=== PATIENT | female | born 1940 | race Caucasian/White ===

== ENCOUNTER 2018-08-03 13:00 | Emergency (ER) | payer MEDICARE ==
[~2018-08-03] VITALS: Ht 167.6 cm; Wt 110.2 kg
[~2018-08-03 13:00] MED LIST: CIPRO250 MG PO; CYMBALTA60 MG PO; DITROPAN XL5 MG PO; FOLIC ACID1 MG PO; GABAPENTIN600 MG PO; HYDROCET 5-5001 EACH PO; IRON SUPPLEMEN325 MG PO; RESTASIS1 EACH OU; TRAMADOL HCL50 M1 PO; VITAMIN B-6 PO; VITAMIN D35000 UNIT PO; XARELTO10 MG PO; Z.0.AMLODIPINE BESYL PO; Z.0.GLUCOPHAGE1000 M PO; Z.0.LANTUS100 UNIT/1 SQ; Z.0.LIPITOR40 MG PO; Z.0.NEXIUM40 MG PO; Z.0.RAMIPRIL10 MG PO; Z.0.SYNTHROID50 MCG PO; Z.0.VICTOZA 2-0.6 MG SQ; Z.0.WARFARIN SODIUM5 PO; [UNRECOGNIZED DRUG - OTHER] PO
--- OUTSIDE RECORDS SUMMARY | 2018-08-03 13:03 | XMS REPORT ---
Author Author [facility] Address Unknown Phone Unavailable Care Team Providers Care Inspector Watch Assembly Name Role Phone Unavailable Unavailable Problems This patient has no known problems. Allergies, Adverse Reactions, Alerts This patient has no known allergies or adverse reactions. Medications This patient has no known medications.
[2018-08-03 18:04] LABS: BASOPHILS % 0.3 % (0.0-1.0); EOSINOPHILS # (AUTO) 0.1 (0.0-0.4); EOSINOPHILS % 0.7 % (0.0-6.0); HEMATOCRIT 37.5 % (34.2-44.1); HEMOGLOBIN 11.8 g/dL (12.0-16.0); LYMPHOCYTES # (AUTO) 1.1 (1.0-3.2); LYMPHOCYTES % 8.4 % (18.0-39.1); MEAN CORPUSCULAR HEMOGLOBIN 24.3 pg (28-32); MEAN CORPUSCULAR HGB CONC 31.5 g/dL (31-35); MEAN CORPUSCULAR VOLUME 77.3 fL (81-99); MONOCYTES # (AUTO) 0.8 (0.2-0.8); MONOCYTES % 5.6 % (4.4-11.3); NEUTROPHILS # (AUTO) 11.5 (2.1-6.9); NEUTROPHILS % 84.6 % (38.7-80.0); PLATELET COUNT 330 x10e3/uL (140-360); RED BLOOD COUNT 4.85 x10e6/uL (3.6-5.1); RED CELL DISTRIBUTION WIDTH 22.4 % (11.7-14.4)
[2018-08-03 18:13] LABS: ALANINE AMINOTRANSFERASE 23 IU/L (0-55); ALBUMIN 3.2 g/dL (3.5-5.0); ALBUMIN/GLOBULIN RATIO 0.9 (0.8-2.0); ALKALINE PHOSPHATASE 111 IU/L (40-150); ANION GAP 14.1 mmol/L (8-16); BLOOD UREA NITROGEN 28 mg/dL (7-26); BUN/CREATININE RATIO 33 (6-25); CALCIUM 9.4 mg/dL (8.4-10.2); CARBON DIOXIDE 25 mmol/L (22-29); CHLORIDE 103 mmol/L (98-107); CREATININE, SERUM 0.84 mg/dL (0.57-1.11); EST GLOMERULAR FILTRATION RATE > 60 ML/MIN (60-); GLUCOSE 100 mg/dL (74-118); POTASSIUM 4.1 mmol/L (3.5-5.1); SODIUM 138 mmol/L (136-145)
[2018-08-03 19:04] LABS: CLARITY,URINE CLOUDY (CLEAR); COLOR,URINE YELLOW (YELLOW)
[2018-08-03 19:05] LABS: BILIRUBIN,URINE NEGATIVE (NEGATIVE); KETONES,URINE NEGATIVE (NEGATIVE); LEUKOCYTE ESTERASE ,URINE 1+ (NEGATIVE); NITRITE,URINE NEGATIVE (NEGATIVE); PROTEIN,URINE DIPSTICK 1+ (NEGATIVE); URINE UROBILINOGEN 0.2 mg/dL (0.2 - 1)
[2018-08-03 19:15] LABS: BACTERIA,URINE MODERATE /HPF; EPITHELIAL CELLS,URINE FEW /LPF
[2018-08-03] MEDS ORDERED: CEFTRIAXONE SOD 1 GM VIAL IV SCH (19:45)
[2018-08-03] MEDS ORDERED: SODIUM CHLORIDE 0.9% 50ML 50 ML ONE (19:54)
[2018-08-03] MEDS ORDERED: IOPAMIDOL 370 MG/ML 200 ML INFUS..BTL INJ ONE (19:54)
--- NOTE | 2018-08-03 20:44 | Diagnostic Imaging Report ---
EXAM: CT ABDOMEN AND PELVIS with IV CONTRAST INDICATION: Abdominal pain, diarrhea COMPARISON: None TECHNIQUE: The abdomen and pelvis were scanned using a multidetector helical scanner. Coronal and sagittal reformations were obtained. Dose modulation, iterative reconstruction, and/or weight based adjustment of the mA/kV was utilized to reduce the radiation dose to as low as reasonably achievable. Routine protocol performed. IV Contrast: 100 cc Isovue-370 Oral Contrast: Water FINDINGS: LOWER THORAX: No consolidations LIVER: No masses BILIARY: The gallbladder is unremarkable. No ductal dilation. SPLEEN: No masses PANCREAS: No masses ADRENALS: No nodules KIDNEYS: Symmetric perfusion. No enhancing masses. No hydronephrosis. GI TRACT: No distention, wall thickening or evidence of obstruction. Appendix is not visualized. VESSELS: Advanced atherosclerotic changes of the abdominal aorta and its branches. No aneurysm. Infrarenal inferior vena cava filter. PERITONEUM/RETROPERITONEUM: No free air or fluid LYMPH NODES: No lymphadenopathy REPRODUCTIVE ORGANS: Unremarkable BLADDER: Unremarkable SOFT TISSUES: Stranding in the left para midline anterior subcutaneous tissues, could be an injection site or contusion. Right posterior lower back and buttock calcification, possibly from prior injury or injection. BONES: No suspicious bone lesions. Healing left lateral seventh through 11th rib fractures. Old left inferior pubic ramus fracture. Chronic appearing central compression of the superior endplate of L4. IMPRESSION: No acute findings to explain patient's abdominal pain. Signed by: Dr. Cynthia Crandall M.D. on 08/03/2018 8:41 PM
== END 2018-08-03 22:20 | disposition home or self-care (01) ==
LOC: ER 13:00
DX: R19.7 Diarrhea, unspecified (principal); R10.84 Generalized abdominal pain; N30.91 Cystitis, unspecified with hematuria; I10 Essential (primary) hypertension; E11.9 Type 2 diabetes mellitus without complications; E78.5 Hyperlipidemia, unspecified; Z86.718 Personal history of other venous thrombosis and embolism
CPT/HCPCS: 36415; 74177; 80053; 81001; 82948; 85025; 87086; 99284; J0696; Q9967

== ENCOUNTER 2018-11-20 11:11 | Observation (INO) | payer MEDICARE ==
[~2018-11-20] VITALS: Ht 167.6 cm; Wt 103.0 kg
--- OUTSIDE RECORDS SUMMARY | 2018-11-20 11:14 | XMS REPORT | Continuity of Care Document ---
Author Author [facility] Interface Address Unknown Phone Unavailable Problems Problem Status Onset Date Classification Date Reported Comments Source Hypochloremia Active 03/28/2016 Problem 08/04/2018 [facility] Hyponatremia Active 03/28/2016 Problem 08/04/2018 [facility] UTI Active 03/28/2016 Problem 08/04/2018 [facility] Concussion Active Problem 08/04/2018 [facility] Contusion Active Problem 08/04/2018 [facility] Thermal pierce of multiple sites Active Problem 08/04/2018 [facility] Medications Medication Details Route Status Patient Instructions Ordering Provider Order Date Source Amlodipine Besylate 5 Mg Tablet, 1 Tab Oral Daily Active 03/29/2016 [facility] Warfarin Sodium 5 Mg Tablet, 1 Tab Oral 5 Days/Week Active 12/21/2014 [facility] Tramadol Hcl 50 Mg Tablet, 1 Tab Oral Daily Active 02/04/2014 [facility] Atorvastatin Calcium (Lipitor) 40 Mg Tablet Daily Active [facility] Cholecalciferol (Vitamin D3) (Vitamin D3) 5,000 Unit Capsule Daily Active [facility] Ciprofloxacin Hcl (Cipro) 250 Mg Tablet Twice A Day Active [facility] Cyclosporine (Restasis) 1 Each Droperette Twice A Day Active [facility] Duloxetine Hcl (Cymbalta) 60 Mg Capsule.dr Foster Active [facility] Esomeprazole Mag Trihydrate (Nexium) 40 Mg Capsule.dr Foster Active [facility] Ferrous Sulfate (Iron Supplement) 325 Mg Tablet Twice A Day Active [facility] Folic Acid 1 Mg Tablet Daily Active [facility] Gabapentin 600 Mg Tablet Three Times A Day Active [facility] Hydrocodone Bit/Acetaminophen (Hydrocet 5-500 Capsule) 1 Each Capsule As Needed Active [facility] Insulin Glargine,Hum.rec.anlog (Lantus) 100 Unit/1 Ml Vial Daily Active [facility] Levothyroxine Sodium (Synthroid) 50 Mcg Tablet Daily Active [facility] Liraglutide (Victoza 2-Ethan) 0.6 Mg/0.1 Ml Pen.injctr Daily Active [facility] Metformin Hcl (Glucophage) 1,000 Mg Tablet Twice A Day Active [facility] Oxybutynin Chloride (Ditropan Xl) 5 Mg Tab.er.24 Daily Active [facility] Ramipril 10 Mg Capsule Twice A Day Active [facility] Repaglinide (Prandin) 1 Mg Tablet 3AM/4NOON/2HS Active [facility] Rivaroxaban (Xarelto) 10 Mg Tablet Daily Active [facility] Vitamin B-6 Daily Active [facility] Allergies, Adverse Reactions, Alerts Substance Category Reaction Severity Reaction type Status Date Reported Comments Source Immunizations Immunization Date Given Site Status Last Updated Comments Source Results Order Name Results Value Reference Range Date Interpretation Comments Source Capillary blood glucose measurement by glucometer (mass/volume) 98 70 - 120 08/03/2018 [facility] Urine color determination YELLOW YELLOW 08/03/2018 [facility] Urine clarity CLOUDY CLEAR 08/03/2018 [facility] Specific gravity of Urine by Test strip 1.030 1.010 - 1.025 08/03/2018 [facility] Urine pH measurement by automated test strip 6 5 - 7 08/03/2018 [facility] Urine leukocyte esterase detection by dipstick 1+ NEGATIVE 08/03/2018 [facility] Urine nitrite detection NEGATIVE NEGATIVE 08/03/2018 [facility] Urine protein measurement by test strip (mass/volume) 1+ NEGATIVE 08/03/2018 [facility] Urine glucose detection NEGATIVE NEGATIVE 08/03/2018 [facility] Urine ketones detection by automated test strip NEGATIVE NEGATIVE 08/03/2018 [facility] Urine urobilinogen measurement by test strip (mass/volume) 0.2 0.2 - 1 08/03/2018 [facility] Urine total bilirubin measurement (mass/volume) NEGATIVE NEGATIVE 08/03/2018 [facility] Urine erythrocytes detection 3+ NEGATIVE 08/03/2018 [facility] Automated urine sediment leukocyte count by microscopy (number/high power field) 11-20 0 - 5 08/03/2018 [facility] Erythrocytes detection in urine sediment by light microscopy 11-20 0 - 5 08/03/2018 [facility] Bacteria detection in urine sediment by light microscopy MODERATE NONE 08/03/2018 [facility] Epithelial cells detection in urine sediment by light microscopy FEW NONE 08/03/2018 [facility] Blood leukocytes automated count (number/volume) 13.63 4.8 - 10.8 08/03/2018 [facility] Blood erythrocytes automated count (number/volume) 4.85 3.6 - 5.1 08/03/2018 [facility] Blood hemoglobin measurement (moles/volume) 11.8 12.0 - 16.0 08/03/2018 [facility] Automated blood hematocrit (volume fraction) 37.5 34.2 - 44.1 08/03/2018 [facility] Automated erythrocyte mean corpuscular volume 77.3 81 - 99 08/03/2018 [facility] Automated erythrocyte mean corpuscular hemoglobin (mass per erythrocyte) 24.3 28 - 32 08/03/2018 [facility] Automated erythrocyte mean corpuscular hemoglobin concentration measurement (mass/volume) 31.5 31 - 35 08/03/2018 [facility] RDW BldCo-Rto 22.4 11.7 - 14.4 08/03/2018 [facility] Automated blood platelet count (count/volume) 330 140 - 360 08/03/2018 [facility] Automated blood segmented neutrophil count as percentage of total leukocytes 84.6 38.7 - 80.0 08/03/2018 [facility] Automated blood lymphocyte count as percentage ot total leukocytes 8.4 18.0 - 39.1 08/03/2018 [facility] Automated blood monocyte count as percentage of total leukocytes 5.6 4.4 - 11.3 08/03/2018 [facility] Automated blood eosinophil count as percentage of total leukocytes 0.7 0.0 - 6.0 08/03/2018 [facility] Automated blood basophil count as percentage of total leukocytes 0.3 0.0 - 1.0 08/03/2018 [facility] IM GRANULOCYTES % 0.4 0.0 - 1.0 08/03/2018 [facility] Automated blood neutrophil count 11.5 2.1 - 6.9 08/03/2018 [facility] Blood lymphocytes count (number/volume) 1.1 1.0 - 3.2 08/03/2018 [facility] Blood monocytes automated count (number/volume) 0.8 0.2 - 0.8 08/03/2018 [facility] Automated blood eosinophil count 0.1 0.0 - 0.4 08/03/2018 [facility] Automated blood basophil count (count/volume) 0.0 0.0 - 0.1 08/03/2018 [facility] Absolute Immature Granulocyte (auto 0.06 0 - 0.1 08/03/2018 [facility] Serum or plasma sodium measurement (moles/volume) 138 136 - 145 08/03/2018 [facility] Serum or plasma potassium measurement (moles/volume) 4.1 3.5 - 5.1 08/03/2018 [facility] Serum or plasma chloride measurement (moles/volume) 103 98 - 107 08/03/2018 [facility] Serum or plasma carbon dioxide, total measurement (moles/volume) 25 22 - 29 08/03/2018 [facility] Serum or plasma anion gap 14.1 8 - 16 08/03/2018 [facility] Serum or plasma urea nitrogen measurement (mass/volume) 28 7 - 26 08/03/2018 [facility] Serum or plasma creatinine measurement (mass/volume) 0.84 0.57 - 1.11 08/03/2018 [facility] Serum or plasma urea nitrogen/creatinine mass ratio 33 6 - 25 08/03/2018 [facility] Estimated glomerular filtration rate (GFR) determination > 60 60 08/03/2018 [facility] Glucose measurement 100 74 - 118 08/03/2018 [facility] Serum or plasma calcium measurement (mass/volume) 9.4 8.4 - 10.2 08/03/2018 [facility] Serum or plasma total bilirubin measurement (mass/volume) 0.5 0.2 - 1.2 08/03/2018 [facility] Aspartate Amino Transf (AST/SGOT) 19 5 - 34 08/03/2018 [facility] Serum or plasma alanine aminotransferase measurement (enzymatic activity/volume) 23 0 - 55 08/03/2018 [facility] Serum or plasma protein measurement (mass/volume) 6.9 6.5 - 8.1 08/03/2018 [facility] Serum or plasma albumin measurement (mass/volume) 3.2 3.5 - 5.0 08/03/2018 [facility] Plasma globulin measurement (mass/volume) 3.7 2.3 - 3.5 08/03/2018 [facility] Serum or plasma albumin/globulin mass ratio 0.9 0.8 - 2.0 08/03/2018 [facility] Serum or plasma alkaline phosphatase measurement (enzymatic activity/volume) 111 40 - 150 08/03/2018 [facility] Vital Signs Vital Sign Value Date Comments Source Encounters Location Location Details Encounter Type Encounter Number Reason For Visit Attending Provider ADM Date DC Date Status Source Departed Emergency Room [id number] LEONOR AMARO MD 08/03/2018 08/03/2018 [facility] Procedures Procedure Code Date Perfomer Comments Source Computed tomography of abdomen and pelvis with contrast [id number] 08/03/2018 [facility]
[2018-11-20] MEDS ORDERED: XULTOPHY SQ (12:10)
--- NOTE | 2018-11-20 12:41 | NUR ---
Nadiya MADERADIGITAL MARKETING STRATEGIST AT BEDSIDE FOR PATIENT EVAL.
[2018-11-20 12:59] LABS: BASOPHILS # (AUTO) 0.1 (0.0-0.1); BASOPHILS % 0.7 % (0.0-1.0); EOSINOPHILS # (AUTO) 0.1 (0.0-0.4); EOSINOPHILS % 1.5 % (0.0-6.0); HEMATOCRIT 44.8 % (34.2-44.1); HEMOGLOBIN 14.7 g/dL (12.0-16.0); LYMPHOCYTES # (AUTO) 1.2 (1.0-3.2); LYMPHOCYTES % 16.9 % (18.0-39.1); MEAN CORPUSCULAR HEMOGLOBIN 27.7 pg (28-32); MEAN CORPUSCULAR HGB CONC 32.8 g/dL (31-35); MEAN CORPUSCULAR VOLUME 84.4 fL (81-99); MONOCYTES # (AUTO) 0.6 (0.2-0.8); MONOCYTES % 8.8 % (4.4-11.3); NEUTROPHILS # (AUTO) 4.9 (2.1-6.9); NEUTROPHILS % 71.7 % (38.7-80.0); PLATELET COUNT 285 x10e3/uL (140-360); RED BLOOD COUNT 5.31 x10e6/uL (3.6-5.1); RED CELL DISTRIBUTION WIDTH 15.7 % (11.7-14.4)
[2018-11-20] MEDS ORDERED: SODIUM CHLORIDE 0.9% 500ML 500 ML IV ONE (13:00)
[2018-11-20 13:13] LABS: INR 1.24; PROTHROMBIN TIME 16.2 seconds (11.9-14.5)
[2018-11-20 13:14] LABS: PARTIAL THROMBOPLASTIN TIME 36.7 seconds (23.8-35.5)
[2018-11-20 13:21] LABS: ALBUMIN 3.6 g/dL (3.5-5.0); ANION GAP 15.3 mmol/L (8-16); CALCIUM 9.3 mg/dL (8.4-10.2); CREATININE, SERUM 1.27 mg/dL (0.57-1.11); MAGNESIUM 2.1 MG/DL (1.3-2.1); POTASSIUM 4.3 mmol/L (3.5-5.1)
--- NOTE | 2018-11-20 13:30 | Diagnostic Imaging Report ---
EXAM: CHEST SINGLE (PORTABLE) DATE: 11/20/2018 12:51 PM INDICATION: Tachycardia COMPARISON: None available in PACS at this time FINDINGS: Lines and tubes: None Heart size normal. No focal pulmonary opacity, pleural effusion or pneumothorax. Calcified granuloma in the left midlung and calcified nodes in the left hilum from prior granulomatous disease. Upper abdomen unremarkable. No acute bony abnormality. IMPRESSION: No evidence for acute disease. Signed by: Dr. Francisco Ferguson M.D. on 11/20/2018 1:26 PM
[2018-11-20 13:45] LABS: CREATINE KINASE MB 1.8 ng/mL (0-5.0); FREE THYROXINE INDEX 2.8752 (1.4-3.8); THYROID STIMULATING HORMONE 1.828 uIU/mL (0.350-4.940)
--- NOTE | 2018-11-20 13:46 | NUR ---
PATIENT AMBULATED TO BATHROOM WITH HER CANE. REQUESTED ICE WATER. GIVEN 2 CUPS
[2018-11-20 14:09] LABS: CLARITY,URINE SL CLOUDY (CLEAR); COLOR,URINE YELLOW (YELLOW); KETONES,URINE NEGATIVE (NEGATIVE); LEUKOCYTE ESTERASE ,URINE NEGATIVE (NEGATIVE); NITRITE,URINE NEGATIVE (NEGATIVE); PROTEIN,URINE DIPSTICK NEGATIVE (NEGATIVE)
[2018-11-20 14:10] LABS: BILIRUBIN,URINE NEGATIVE (NEGATIVE); URINE UROBILINOGEN 0.2 mg/dL (0.2 - 1)
[2018-11-20 14:20] LABS: AMORPHOUS SEDIMENT,URINE FEW (FEW); BACTERIA,URINE FEW /HPF; EPITHELIAL CELLS,URINE MODERATE /LPF
--- NOTE | 2018-11-20 15:14 | NUR ---
TAMELA MADERA N.P. AT BEDSIDE UPDATING PATIENT ON ADMISSION
[2018-11-20] MEDS ORDERED: DEXTROSE 50% SYRINGE 50 ML IV PRN (15:30)
[2018-11-20] MEDS: INSULIN REGULAR, HUMAN 100 UNIT/1 ML 3ML VIAL SQ SCH ×2 (16:30→21:00)
--- NOTE | 2018-11-20 17:02 | NUR ---
PATIENT SITTING UP EATING MEAL TRAY
--- NOTE | 2018-11-20 18:21 | NUR ---
DR. POWELL AT BEDSIDE EVALUATING PATIENT
--- NOTE | 2018-11-20 18:38 | NUR ---
Pt received from ER via stretcher. Alert and oriented x4. oriented to staff and surroundings. Encouraged to press call laboy if help needed. Pt on tele #[phone]. Will endorse to next shift
--- NOTE | 2018-11-20 19:50 | NUR ---
Received change of shift report from AM nurse. Rounds completed.
[2018-11-20 21:13] VITALS: BP 132/60
[2018-11-20 21:37] LABS: CREATINE KINASE MB 1.6 ng/mL (0-5.0)
--- NOTE | 2018-11-20 22:25 | NUR ---
Cardiology Consult Dictation #[id number]
[2018-11-20] MEDS: SODIUM CHLORIDE 0.9% 1000ML 1,000 ML IV SCH (22:30)
[2018-11-20 23:57] VITALS: BP 132/60
[2018-11-21] VITALS (9 sets, daily range): BP systolic 116–133; BP diastolic 58–72
--- NOTE | 2018-11-21 03:15 | Consultation ---
DATE OF CONSULTATION: 11/20/2018 Cardiology Consultation. ADDITIONAL REQUESTING PHYSICIAN: Dr. Maribell Richards REASON FOR CONSULTATION: Palpitations. HISTORY OF PRESENT ILLNESS: This is a 78-year-old woman with history of diabetes mellitus, hyperlipidemia and hypothyroidism, who presents with complaints of elevated heart rate. The patient reports she does not feel her normal self for the last few days and noted that her heart rate was elevated on her Apple Watch. She denied any chest pain, shortness of breath, edema, orthopnea, PND, lightheadedness, or loss of consciousness. She does, however, notes that she has been dyspneic on walking to the bathroom today. She otherwise denies fever, chills, nausea, or diarrhea. The patient was noted to be tachycardic on evaluation in the ER with frequent PVCs when her heart rate became better controlled. Cardiology is therefore consulted upon evaluation. REVIEW OF SYSTEMS: Negative except as per HPI. PAST MEDICAL HISTORY: 1. Diabetes mellitus. 2. Hyperlipidemia. 3. Hypothyroidism. 4. History of DVT, on chronic Xarelto. 5. Obesity. PAST SURGICAL HISTORY: 1. Hemorrhoidectomy. 2. Appendectomy. 3. Tubal ligation. 4. Rotator cuff surgery. 5. Heel spur. 6. Bunionectomy. ALLERGIES: PLEASE SEE EMR. MEDICATIONS: Please see medication list. SOCIAL HISTORY: She quit smoking 20 years ago, but previously smoked up to one pack a day for about 25 years. No alcohol or illicit drugs. FAMILY HISTORY: Noncontributory to current illness. PHYSICAL EXAMINATION: VITAL SIGNS: Temperature 97.8 degrees, pulse 99, respiratory rate 18, blood pressure 135/59, oxygen saturation 100% on room air. GENERAL: Awake, alert, well-developed and well-nourished woman, obese, no acute distress. HEENT: Normocephalic, atraumatic. Pupils equal. No scleral icterus. NECK: Supple. No thyromegaly or cervical lymphadenopathy. No carotid bruits. LUNGS: Clear to auscultation bilaterally. No wheeze or crackles. CARDIOVASCULAR: Tachycardic, but regular. Systolic murmur 2/6 appreciated best at the right upper sternal border. ABDOMEN: Soft, nontender. EXTREMITIES: Trace edema. NEUROLOGIC: Nonfocal exam. LABORATORY DATA: WBC 6.8, hemoglobin 14.7, hematocrit 44.8, platelets 285. Sodium 132, potassium 4.3, chloride 97, CO2 of 25, BUN 41, creatinine 1.27. Troponin 0.019. TSH 1.828, free T4 8.79, T3 uptake 32.71. IMAGING STUDIES: Chest x-ray, no evidence for acute disease. EKG, sinus tachycardia with premature PACs. Telemetry revealed normal sinus rhythm with PVCs in a pattern of trigeminy as well as episodes of sinus tachycardia. IMPRESSION: 1. Sinus tachycardia. 2. Frequent PVCs. 3. Mild aortic stenosis. 4. Diabetes mellitus. 5. Hyperlipidemia. 6. Hypothyroidism. 7. Acute kidney injury. 8. History of DVT, on Xarelto. RECOMMENDATIONS: Trend cardiac enzymes to rule out myocardial infarction. Echocardiogram was reviewed and revealed mild aortic stenosis and normal LV systolic function. Monitor the patient on telemetry while admitted. Replete electrolytes. Gentle IV fluids given the patient's acute kidney injury as well as tachycardia. Thank you for this consult. We will continue to follow. Chloe Daigle MD ABS/MODL /[id number]
--- NOTE | 2018-11-21 07:17 | NUR ---
RECEIVED PATIENT RESTING IN BED. NO ACUTE DISTRESS NOTED. DENIES PAIN OR DISCOMFORT. CALL LIGHT WITHIN REACH. BED IN THE LOWEST POSITION.
[2018-11-21] MEDS: INSULIN REGULAR, HUMAN 100 UNIT/1 ML 3ML VIAL SQ SCH ×4 (07:30→21:00)
[2018-11-21 07:33] LABS: CREATINE KINASE MB 1.5 ng/mL (0-5.0)
[2018-11-21] MEDS ORDERED: MIRALAX17 GM PO (07:38)
[2018-11-21 07:41] LABS: CHOL/HDL RATIO 3.4 (3.0-3.6)
[2018-11-21] MEDS ORDERED: OXYBUTYNIN CHLORIDE XL 5 MG TAB PO SCH ×2 (09:15→21:00)
[2018-11-21] MEDS ORDERED: NON-FORMULARY MEDICATION (Polyethylene Glycol 3350 (Miralax) 17 GM) PO SCH (09:15)
[2018-11-21] MEDS ORDERED: HYDROCODONE BIT PO SCH (09:15)
[2018-11-21] MEDS ORDERED: ESOMEPRAZOLE MAG TRIHYDRATE PO SCH (09:15)
[2018-11-21] MEDS ORDERED: NON-FORMULARY MEDICATION (Cholecalciferol (Vitamin D3) (Vitamin D3) 5,000 UNITS) PO SCH (09:15)
[2018-11-21] MEDS ORDERED: ATORVASTATIN CALCIUM PO SCH (09:15)
[2018-11-21] MEDS ORDERED: NON-FORMULARY MEDICATION (Duloxetine Hcl (Cymbalta) 60 MG) PO SCH (09:15)
[2018-11-21] MEDS ORDERED: ACETAMINOPHEN PO SCH (09:15)
[2018-11-21] MEDS ORDERED: HYDROCODONE/APAP 5MG-325MG TAB PO PRN (10:00)
[2018-11-21] MEDS: PANTOPRAZOLE SOD 40 MG TABEC PO SCH (10:15)
[2018-11-21] MEDS: RIVAROXABAN 10 MG TABLET PO SCH (10:15)
[2018-11-21] MEDS: CHOLECALCIFEROL 1,000 UNIT TAB PO SCH (10:15)
[2018-11-21] MEDS: GABAPENTIN 300 MG CAP PO SCH ×3 (10:15→21:45)
[2018-11-21] MEDS: DULOXETINE HCL 30 MG DELAYED RELEASE PO SCH (10:15)
[2018-11-21] MEDS: FOLIC ACID 1 MG TAB PO SCH (10:15)
[2018-11-21 10:18] LABS: BLOOD UREA NITROGEN 29 mg/dL (7-26); BUN/CREATININE RATIO 33 (6-25); CALCIUM 9.3 mg/dL (8.4-10.2); CARBON DIOXIDE 21 mmol/L (22-29); CHLORIDE 106 mmol/L (98-107); CREATININE, SERUM 0.87 mg/dL (0.57-1.11); EST GLOMERULAR FILTRATION RATE > 60 ML/MIN (60-); GLUCOSE 99 mg/dL (74-118); SODIUM 138 mmol/L (136-145)
[2018-11-21] MEDS ORDERED: POLYETHYLENE GLYCOL 3350 17 GM PACK PO SCH ×2 (10:30→21:00)
--- NOTE | 2018-11-21 10:51 | NUR ---
EDUCATED ABOUT IMM, SIGNED, FILED IN CHART, WITH COPY LEFT WITH FAMILY AT BEDSIDE.
[2018-11-21] MEDS: METOPROLOL TARTRATE 25 MG TAB PO SCH ×3 (12:28→23:55)
[2018-11-21] MEDS: REPAGLINIDE 1 MG TAB PO SCH ×2 (12:29→17:25)
--- NOTE | 2018-11-21 14:02 | Progress Note ---
DATE: 11/21/2018 Cardiology Progress Note SUBJECTIVE: The patient denies chest pain or shortness of breath. OBJECTIVE: VITAL SIGNS: Temperature 95.4 degrees, pulse 100, respiratory rate 20, blood pressure 116/50, and oxygen saturation 91% on room air. GENERAL: Awake, alert, in no acute distress. LUNGS: Clear to auscultation bilaterally. No wheezes. No crackles. CARDIOVASCULAR: Normal rate. Regular rhythm. Systolic murmur 2/6 best appreciated at right upper sternal border. ABDOMEN: Soft, nontender. EXTREMITIES: Trace edema. CARDIAC MEDICATIONS: Rivaroxaban 10 mg p.o. daily, atorvastatin 40 mg p.o. at bedtime, levothyroxine 50 mcg p.o. daily. LABS: Sodium 138, potassium 4, chloride 106, CO2 of 21, BUN 29, and creatinine 0.87. TELEMETRY: Normal sinus rhythm with frequent PVCs, a pattern of trigeminy. IMPRESSION: 1. Sinus tachycardia. 2. Frequent premature ventricular contractions. 3. Mild aortic stenosis. 4. Diabetes mellitus. 5. Hyperlipidemia. 6. Hypothyroidism. 7. Acute kidney injury. 8. History of deep vein thrombosis, on Xarelto. PLAN: No evidence of myocardial infarction on serial cardiac biomarkers. Echocardiogram demonstrated mild aortic stenosis. The patient will need outpatient Holter monitoring as well as outpatient ischemic evaluation. Start the patient on low-dose beta-blockade. Keep the patient on telemetry while admitted. Replete electrolytes. Monitor volume status closely given gentle IV fluids. Thank you for this consult. We will continue to follow. Chloe Daigle MD ABS/MODL /[id number]
[2018-11-21] MEDS: SODIUM CHLORIDE 0.9% 1000ML 1,000 ML IV SCH (14:15)
[2018-11-21] MEDS ORDERED: NON-FORMULARY MEDICATION (Gabapentin 600 MG) PO SCH (15:00)
[2018-11-21 15:49] LABS: CREATINE KINASE MB 1.5 ng/mL (0-5.0)
[2018-11-21] MEDS ORDERED: METFORMIN HCL PO SCH (17:00)
[2018-11-21] MEDS: FERROUS SULFATE 325 MG TAB PO SCH (17:00)
[2018-11-21] MEDS ORDERED: METFORMIN HCL 500 MG TAB PO SCH (17:00)
--- NOTE | 2018-11-21 19:05 | NUR ---
REPORT GIVEN TO ONCOMING NURSE, PATIENT IS RESTING IN BED. NO ACUTE DISTRESS NOTED. CALL LIGHT WITHIN REACH. BED IN THE LOWEST POSITION.
--- NOTE | 2018-11-21 19:14 | NUR ---
PT IS RESTING IN BED. NO RESPIRATORY DISTRESS NOTED. BED IN THE LOWEST POSITION, LOCKED, BED ALARM ON, AND CALL LIGHT WITHIN REACH. WILL CONTINUE TO MONITOR.
[2018-11-21] MEDS ORDERED: ATORVASTATIN 40 MG TAB PO SCH (21:00)
[2018-11-21] MEDS ORDERED: LEVOTHYROXINE SODIUM 50 MCG TAB PO SCH (21:00)
[2018-11-22] VITALS (7 sets, daily range): BP systolic 93–155; BP diastolic 39–65
[2018-11-22] MEDS: SODIUM CHLORIDE 0.9% 1000ML 1,000 ML IV SCH (03:30)
[2018-11-22] MEDS: METOPROLOL TARTRATE 25 MG TAB PO SCH ×3 (05:37→17:10)
[2018-11-22] MEDS ORDERED: LEVOTHYROXINE SODIUM 50 MCG TAB PO SCH (06:00)
--- NOTE | 2018-11-22 07:00 | NUR ---
RECEIVED PATIENT RESTING IN BED, RESPIRATIONS EVEN AND UNLABORED, NO ACUTE DISTRESS NOTED. CALL LIGHT WITHIN REACH. BED IN THE LOWEST POSITION.
[2018-11-22] MEDS: INSULIN REGULAR, HUMAN 100 UNIT/1 ML 3ML VIAL SQ SCH ×3 (07:30→16:30)
[2018-11-22] MEDS: PANTOPRAZOLE SOD 40 MG TABEC PO SCH (08:48)
[2018-11-22] MEDS: FOLIC ACID 1 MG TAB PO SCH (08:48)
[2018-11-22] MEDS: DULOXETINE HCL 30 MG DELAYED RELEASE PO SCH (08:48)
[2018-11-22] MEDS: FERROUS SULFATE 325 MG TAB PO SCH ×2 (08:48→17:00)
[2018-11-22] MEDS: GABAPENTIN 300 MG CAP PO SCH ×2 (08:48→14:54)
[2018-11-22] MEDS: RIVAROXABAN 10 MG TABLET PO SCH (08:49)
[2018-11-22] MEDS: CHOLECALCIFEROL 1,000 UNIT TAB PO SCH (08:49)
[2018-11-22] MEDS: REPAGLINIDE 1 MG TAB PO SCH ×3 (08:49→17:10)
--- NOTE | 2018-11-22 17:38 | Progress Note ---
DATE: 11/22/2018 Cardiology Progress Note SUBJECTIVE: No major events overnight. OBJECTIVE: VITAL SIGNS: Temperature afebrile, pulse 70, respiratory rate 18, blood pressure 124/56, saturating 95% on room air. GENERAL: Well developed, well nourished, in no acute distress. CARDIOVASCULAR: Regular rate and rhythm, 2/6 systolic murmur in the right upper sternal border. LUNGS: Clear to auscultation bilaterally. ABDOMEN: Soft, nontender, nondistended. No masses. NEURO AND PSYCH: Alert and oriented to person, place, time. Normal affect. MEDICATIONS: Reviewed. LABORATORY DATA: Reviewed. TELEMETRY DATA: Reviewed. ASSESSMENT: 1. Sinus bradycardia. 2. Frequent premature ventricular contractions. 3. Mild aortic stenosis. 4. Diabetes. 5. Hyperlipidemia. 6. Hypothyroidism. 7. Acute kidney injury. 8. History of deep vein thrombosis on Xarelto. PLAN: The patient will need outpatient Holter monitoring given the burden of PVCs as well as outpatient ischemic evaluation. Continue low-dose beta dionne. Continue telemetry monitoring. Replete electrolytes as indicated. Thank you for this consult. We will continue to follow. MD GARETH Soriano/DOMINGO /[id number]
--- NOTE | 2018-11-22 18:22 | NUR ---
PER DR. KATHERINE LESTER TO DC PATIENT.
--- NOTE | 2018-11-22 19:02 | NUR ---
RECEIVED DC ORDER FROM MD, CARDIOLOGY CLEARED PATIENT TO BE DISCHARGED HOME. PATIENT IS IN STABLE CONDITION. DENIES PAIN OR DISCOMFORT. IV LINE TO LEFT WRIST DCD WITH TIP INTACT, PRESSURE APPLIED TO SITE, NO BLEEDING NOTED. DISCHARGE TEACHING PROVIDED, PATIENT VERBALIZED UNDERSTANDING. PATIENT ACCOMPANIED TO PRIVATE AUTO VIA WHEELCHAIR BY STAFF.
--- NOTE | 2018-11-23 00:44 | Discharge Summary ---
HISTORY: This is a 78-year-old female, who has past medical history positive for hypertension, diabetes and hypothyroidism, came with palpitations initially. EKG was done and it showed evidence of atrial arrhythmia with sinus rhythm with some premature atrial complexes. No evidence of any ST-segment elevation or depression. The patient has been seen by Cardiology, Dr. Damon Szymanski. The patient was started on metoprolol 12.5 mg q.6 hours, but heart rate has been unable to control and the blood pressure has been in 90, we are going to change to Toprol-XL 25 mg daily. Cardiology today and decided the patient can go home. PHYSICAL EXAMINATION: VITAL SIGNS: Blood pressure 136/59, temperature 95.7, heart rate 68 per minute, respiratory rate 18 per minute, and oxygen saturation 95%. CARDIAC: On physical exam, heart rate is irregularly irregular heart rate. Normal S1, S2 sound. LUNGS: Clear bilaterally. LABORATORY DATA: On the BMP, sodium 138, potassium 4.0, chloride 106, CO2 of 21, BUN 29, creatinine 0.87, glucose 99. On the CBC, white blood count 6.80, hemoglobin 14.7, hematocrit 44.8, platelet count 295,000. PT 16.2, INR 1.24, PTT 36.7, AST 33, ALT 25, total bilirubin 0.3, alkaline phosphatase 95. FINAL IMPRESSION: 1. Atrial arrhythmia. 2. Hypertension. 3. Hypothyroidism. 4. Acute renal failure. 5. Hypercholesterolemia. 6. Gastroesophageal reflux disease. 7. Polyneuropathy. PLAN OF TREATMENT: The patient will be discharged on Toprol-XL 25 mg daily. She is on ferrous sulfate 325 mg twice daily, Lipitor 40 mg daily, Xarelto 10 mg daily, levothyroxine daily, folic acid 1 mg daily, Cymbalta 60 mg daily, oxybutynin 5 mg daily, [place] one tablet as needed, Protonix 40 mg daily, gabapentin 600 mg 3 times a day. Continue cholecalciferol 5000 units daily, repaglinide 1 mg daily, and metoprolol which is Toprol-XL 25 mg daily. Again, discharge only if okay with Cardiology today, Dr. Mak. Radio Television Technical Director is working Dr. Damon Szymanski for Cardiology, he will decide if the patient can go home . Discharge if okay with metrology engineer. If the patient is discharged by Cardiology, she will follow up with a metrology engineer in a week to complete the workup as an outpatient. MD EMELYN Burroughs/DOMINGO /[id number]
== END 2018-11-22 19:00 | disposition home or self-care (01) ==
LOC: ER 11:11 → ERHOLD 15:30 → MED/SURG3 18:30
DX: R00.2 Palpitations (principal); R00.0 Tachycardia, unspecified; R00.8 Other abnormalities of heart beat; I10 Essential (primary) hypertension; E11.9 Type 2 diabetes mellitus without complications; E78.5 Hyperlipidemia, unspecified; M19.90 Unspecified osteoarthritis, unspecified site; E03.9 Hypothyroidism, unspecified; Z95.828 Presence of other vascular implants and grafts; N17.9 Acute kidney failure, unspecified; I35.0 Nonrheumatic aortic (valve) stenosis; I49.3 Ventricular premature depolarization; Z79.01 Long term (current) use of anticoagulants; Z86.718 Personal history of other venous thrombosis and embolism; E78.00 Pure hypercholesterolemia, unspecified; K21.9 Gastro-esophageal reflux disease without esophagitis; G62.9 Polyneuropathy, unspecified; Z79.4 Long term (current) use of insulin
CPT/HCPCS: 36415 ×2; 71045; 80048; 80053; 80061; 81001; 82550 ×2; 82553 ×2; 82948 ×3; 83735; 84436; 84443; 84479; 84484 ×2; 85025; 85610; 85730; 93005; 93306; 99284; G0378 ×3; J1817; J7030 ×2; J7040; S0164 ×2

== ENCOUNTER → 2019-01-23 | Day surgery (SDC) | payer MEDICARE ==
[2019-01-21 15:10] LABS: BASOPHILS % 0.6 % (0.0-1.0); EOSINOPHILS # (AUTO) 0.2 (0.0-0.4); EOSINOPHILS % 2.8 % (0.0-6.0); HEMATOCRIT 44.2 % (34.2-44.1); HEMOGLOBIN 14.3 g/dL (12.0-16.0); LYMPHOCYTES # (AUTO) 1.2 (1.0-3.2); LYMPHOCYTES % 17.3 % (18.0-39.1); MEAN CORPUSCULAR HGB CONC 32.4 g/dL (31-35); MEAN CORPUSCULAR VOLUME 86.7 fL (81-99); MONOCYTES # (AUTO) 0.5 (0.2-0.8); MONOCYTES % 6.6 % (4.4-11.3); NEUTROPHILS # (AUTO) 5.1 (2.1-6.9); NEUTROPHILS % 72.4 % (38.7-80.0); PLATELET COUNT 267 x10e3/uL (140-360); RED CELL DISTRIBUTION WIDTH 14.9 % (11.7-14.4)
[2019-01-21 15:27] LABS: INR 0.91; PROTHROMBIN TIME 12.7 seconds (11.9-14.5)
[2019-01-21 15:33] LABS: ALBUMIN 3.7 g/dL (3.5-5.0); ANION GAP 15.5 mmol/L (8-16); CALCIUM 9.7 mg/dL (8.4-10.2); CREATININE, SERUM 1.05 mg/dL (0.57-1.11)
[2019-01-21 15:40] LABS: POTASSIUM 6.5 mmol/L (3.5-5.1)
[2019-01-23] VITALS (9 sets, daily range): BP systolic 98–132; BP diastolic 29–70
[~2019-01-23] VITALS: Ht 167.6 cm; Wt 108.9 kg
[~2019-01-23] MED LIST changes: +ATROPINE SULFATE 0.1 MG/ML 10ML SYR ONE; +BACLOFEN10 MG PO; +FENTANYL CITRATE/PF 100MCG/2 ML INJ ONE; +HEPARIN SOD (PORCINE) 1000 UNIT/ML 30ML ONE; +HEPARIN SOD/SOD CHLORIDE 2,000 ML ONE; +IOPAMIDOL 370 MG/ML 200 ML INFUS..BTL INJ ONE; +LIDOCAINE HCL 2% LOCAL 20 ML VIAL ONE; +METOPROLOL SUCC25 MG PO; +MIDAZOLAM HCL 2 MG/2 ML VIAL ONE; +MIRALAX17 GM PO; +NITROGLYCERIN/D5W 200 MCG/ML 250 ML ONE; +NORCO 7.5-3251 EACH PO; +VERAPAMIL HCL 2.5 MG/ML 2 ML VIAL ONE; +XULTOPHY SQ
--- NOTE | 2019-01-23 15:00 | NUR ---
Patient reports skin tear to right forearm after bumping right arm in the restroom before being brought back to ACU 8. no distress noted at this time.
--- NOTE | 2019-01-23 15:55 | NUR ---
01/23/19 [address] Szymanski in regards to blood sugar level 65 but no answer. 01/23/19 1545 Notified Director Rufina Rose no return call from Dr. Szymanski. Director Rufina Rose stated verbalized understanding and stated she will follow up.
--- NOTE | 2019-01-23 16:25 | NUR ---
Dr. Szymanski called back and notified of blood sugar [address] Szymanski stated no new orders at this time.
--- NOTE | 2019-01-23 18:20 | NUR ---
Continuity of care from procedure to recovery , review of procedural findings and medications given. Patient drowsy, easily aroused. maintains airway and room air saturations of 97-99%. No gross issues of pressure, pain, pallor or dysrhythmia. IV site patent with NS 0.9% at KVO by dial-flow. patient hemodynamically stable with hemostasis. Right wrist with TR band 12ml to bladder. right groin dressing CDI w/o s/s of bleeding. patient transferred to carrier clinic assist w/o incident. transported to [facility] holding 9 - cgf procedure: Diagnostic Left heart cath and coronary angiography, right radial access, right femoral access Sheath puller: Dr. Szymanski 5fr Mynx to right femoral, Maddy RTr right wrist TR band 12ml Meds Given Intra-Procedure Sedatives Versed - 2 mg Fentanyl - 50 mcg Radial Cocktail Heparin - 3000 Units nitro - 200mcg Verapamil - 2.5mg Fluids Input - 450ml Output - dtv Contrast Isovue 370 - 90ml Other Meds NA
--- NOTE | 2019-01-23 20:00 | NUR ---
TR band successful removed and occlusive dressing applied. DC teaching performed with patient and family. right groin remains intact w/o s/s of hematoma. Pedal pulses unchanged. pt tolerating PO.
--- NOTE | 2019-01-23 20:40 | NUR ---
Pt meets DC criteria. right radial and right femoral area assessed for s/s of complication and presence of hematoma. overall skin warm, dry, no discolor, and pulses present. IV removed from left anterior forearm. Distal tip appears intact. VS WNL. Pt denies pain, sob, or need at this time. Family at side. Review of discharge paperwork and follow up instructions. verbalized understanding. Pt to wheelchair and transported to front of hospital. Transferred to private vehicle under own strength w/o incident with DC paperwork in hand. - cgf
--- NOTE | 2019-01-24 00:22 | Operative Report ---
DATE OF PROCEDURE: SURGEON: Damon Szymanski DO PROCEDURES PERFORMED: 1. Conscious sedation, 26 minutes. 2. Selective coronary angiography x2. 3. Left heart catheterization. PREPROCEDURE DIAGNOSIS: Abnormal stress test. POSTPROCEDURE DIAGNOSIS: Nonobstructive coronary artery disease. ESTIMATED BLOOD LOSS: Less than 10 mL. SPECIMENS REMOVED: None. PROCEDURE IN DETAIL: After informed consent was obtained, the patient was brought to the cardiac catheterization laboratory in a fasting and nonsedated state. Bilateral groins were prepped and draped in the usual sterile fashion. Right wrist was prepped and draped in the usual sterile fashion. A 2% lidocaine was instilled over the right wrist for local anesthesia. Using micropuncture needle, the right radial artery was accessed via modified Seldinger technique and a 6-Lebanese sheath was placed. Next, radial artery cannulation of the coronary arteries was terminated due to severe tortuosity and inability to cannulate. Next, I gained access into the right common femoral artery. Diagnostic coronary angiography was performed using a JL4 and 3DRC catheters. Left heart catheterization was performed using TIG catheter. The patient tolerated the procedure well with no immediate complications. She was transported back to her room in stable condition. Hemostasis was achieved via Mynx device in the groin and a TR band over the wrist. PROCEDURE FINDINGS: 1. Left main coronary artery is patent without significant disease. 2. Left anterior descending coronary has proximal diffuse 40 to 50% stenosis. The mid to distal portion has a small focal 50% to 60% stenosis. 3. Left circumflex coronary provides two obtuse marginal vessels. The midportion of left circumflex has a 50% stenosis. 4. Right coronary artery is a dominant vessel provides posterior descending coronary artery. There is a mid RCA 50% stenosis. 5. Left ventricular end-diastolic pressure is 8 mmHg with no aortic valve gradient present upon pullback. RECOMMENDATIONS: Continue aggressive risk factor modification and medical management. Damon Szymanski DO BM/MODL /[id number]
--- OUTSIDE RECORDS SUMMARY | 2019-01-27 10:20 | XMS REPORT | Continuity of Care Document ---
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 [facility] Arrhythmia Active Problem 11/23/2018 [facility] Shortness of breath Active Problem 11/23/2018 [facility] Medications Medication Details Route Status Patient Instructions Ordering Provider Order Date Source Metformin Hcl (Glucophage) 1,000 Mg Tablet, 1 Tab Oral Twice A Day Active 11/21/2018 [facility] Ciprofloxacin Hcl (Cipro) 250 Mg Tablet, 250 Mg Oral Twice A Day Active 11/20/2018 [facility] Cyclosporine (Restasis) 1 Each Droperette, Each Eye Twice A Day Active 11/20/2018 [facility] Liraglutide (Victoza 2-Ethan) 0.6 Mg/0.1 Ml Pen.injctr, 1.8 Mg Sub-Q Daily Active 11/20/2018 [facility] Ramipril 10 Mg Capsule, 1 Tab Oral Twice A Day Active 11/20/2018 [facility] Amlodipine Besylate 5 Mg Tablet, 1 Tab Oral Daily Active 03/29/2016 [facility] Warfarin Sodium 5 Mg Tablet, 1 Tab Oral 5 Days/Week Active 12/21/2014 [facility] Tramadol Hcl 50 Mg Tablet, 1 Tab Oral Daily Active 02/04/2014 [facility] Atorvastatin Calcium (Lipitor) 40 Mg Tablet Daily Active [facility] Cholecalciferol (Vitamin D3) (Vitamin D3) 5,000 Unit Capsule Daily Active [facility] Ciprofloxacin Hcl (Cipro) 250 Mg Tablet Twice A Day Active [facility] Cyclosporine (Restasis) 1 Each Droperette Twice A Day Active [facility] Duloxetine Hcl (Cymbalta) 60 Mg Capsule. Daily Active [facility] Esomeprazole Mag Trihydrate (Nexium) 40 Mg Capsule. Daily Active [facility] Ferrous Sulfate (Iron Supplement) 325 Mg Tablet Twice A Day Active [facility] Folic Acid 1 Mg Tablet Daily Active [facility] Gabapentin 600 Mg Tablet Three Times A Day Active [facility] Hydrocodone Bit/Acetaminophen (Hydrocet 5-500 Capsule) 1 Each Capsule As Needed Active [facility] Insulin Glargine,Hum.rec.anlog (Lantus) 100 Unit/1 Ml Vial Daily Active [facility] Levothyroxine Sodium (Synthroid) 50 Mcg Tablet Daily Active [facility] Liraglutide (Victoza 2-Ethan) 0.6 Mg/0.1 Ml Pen.injctr Daily Active [facility] Metformin Hcl (Glucophage) 1,000 Mg Tablet Twice A Day Active [facility] Oxybutynin Chloride (Ditropan Xl) 5 Mg Tab.er.24 Daily Active [facility] Ramipril 10 Mg Capsule Twice A Day Active [facility] Repaglinide (Prandin) 1 Mg Tablet 3AM/4NOON/2HS Active [facility] Rivaroxaban (Xarelto) 10 Mg Tablet Daily Active [facility] Vitamin B-6 Daily Active [facility] Polyethylene Glycol 3350 (Miralax) 17 Gm Powd.pack Daily Active [facility] Xultophy Daily Active [facility] Allergies, Adverse Reactions, Alerts Substance Category Reaction Severity Reaction type Status Date Reported Comments Source Immunizations Immunization Date Given Site Status Last Updated Comments Source Results Order Name Results Value Reference Range Date Interpretation Comments Source Capillary blood glucose measurement by glucometer (mass/volume) 120 70 - 120 11/22/2018 [facility] Serum or plasma creatine kinase measurement (enzymatic activity/volume) 48 29 - 168 11/21/2018 [facility] Serum or plasma creatine kinase MB measurement (mass/volume) 1.50 0 - 5.0 11/21/2018 [facility] Troponin I measurement by highly sensitive enzyme immunoassay 0.017 0 - 0.300 11/21/2018 [facility] Serum or plasma sodium measurement (moles/volume) 138 136 - 145 11/21/2018 [facility] Serum or plasma potassium measurement (moles/volume) 4.0 3.5 - 5.1 11/21/2018 [facility] Serum or plasma chloride measurement (moles/volume) 106 98 - 107 11/21/2018 [facility] Serum or plasma carbon dioxide, total measurement (moles/volume) 21 22 - 29 11/21/2018 [facility] Serum or plasma anion gap 15.0 8 - 16 11/21/2018 [facility] Serum or plasma urea nitrogen measurement (mass/volume) 29 7 - 26 11/21/2018 [facility] Serum or plasma creatinine measurement (mass/volume) 0.87 0.57 - 1.11 11/21/2018 [facility] Serum or plasma urea nitrogen/creatinine mass ratio 33 6 - 25 11/21/2018 [facility] Estimated glomerular filtration rate (GFR) determination > 60 60 11/21/2018 [facility] Glucose measurement 99 74 - 118 11/21/2018 [facility] Serum or plasma calcium measurement (mass/volume) 9.3 8.4 - 10.2 11/21/2018 [facility] Serum or plasma triglyceride measurement (mass/volume) 99 0 - 149 11/21/2018 [facility] Serum or plasma cholesterol measurement (mass/volume) 178 0 - 199 11/21/2018 [facility] Serum or plasma cholesterol in LDL measurement (mass/volume) 105 60 - 130 11/21/2018 [facility] Serum or plasma cholesterol in HDL measurement (mass/volume) 53 40 - 60 11/21/2018 [facility] Serum or plasma total cholesterol/cholesterol in HDL mass ratio 3.4 3.0 - 3.6 11/21/2018 [facility] Urine color determination YELLOW YELLOW 11/20/2018 [facility] Urine clarity SL CLOUDY CLEAR 11/20/2018 [facility] Specific gravity of Urine by Test strip 1.030 1.010 - 1.025 11/20/2018 [facility] Urine pH measurement by automated test strip 5 5 - 7 11/20/2018 [facility] Urine leukocyte esterase detection by dipstick NEGATIVE NEGATIVE 11/20/2018 [facility] Urine nitrite detection NEGATIVE NEGATIVE 11/20/2018 [facility] Urine protein measurement by test strip (mass/volume) NEGATIVE NEGATIVE 11/20/2018 [facility] Urine glucose detection NEGATIVE NEGATIVE 11/20/2018 [facility] Urine ketones detection by automated test strip NEGATIVE NEGATIVE 11/20/2018 [facility] Urine urobilinogen measurement by test strip (mass/volume) 0.2 0.2 - 1 11/20/2018 [facility] Urine total bilirubin measurement (mass/volume) NEGATIVE NEGATIVE 11/20/2018 [facility] Urine erythrocytes detection NEGATIVE NEGATIVE 11/20/2018 [facility] Automated urine sediment leukocyte count by microscopy (number/high power field) NONE 0 - 5 11/20/2018 [facility] Erythrocytes detection in urine sediment by light microscopy NONE 0 - 5 11/20/2018 [facility] Bacteria detection in urine sediment by light microscopy FEW NONE 11/20/2018 [facility] Epithelial cells detection in urine sediment by light microscopy MODERATE NONE 11/20/2018 [facility] Amorphous sediment detection in urine sediment by light microscopy FEW FEW 11/20/2018 [facility] Blood leukocytes automated count (number/volume) 6.80 4.8 - 10.8 11/20/2018 [facility] Blood erythrocytes automated count (number/volume) 5.31 3.6 - 5.1 11/20/2018 [facility] Blood hemoglobin measurement (moles/volume) 14.7 12.0 - 16.0 11/20/2018 [facility] Automated blood hematocrit (volume fraction) 44.8 34.2 - 44.1 11/20/2018 [facility] Automated erythrocyte mean corpuscular volume 84.4 81 - 99 11/20/2018 [facility] Automated erythrocyte mean corpuscular hemoglobin (mass per erythrocyte) 27.7 28 - 32 11/20/2018 [facility] Automated erythrocyte mean corpuscular hemoglobin concentration measurement (mass/volume) 32.8 31 - 35 11/20/2018 [facility] RDW BldCo-Rto 15.7 11.7 - 14.4 11/20/2018 [facility] Automated blood platelet count (count/volume) 285 140 - 360 11/20/2018 [facility] Automated blood segmented neutrophil count as percentage of total leukocytes 71.7 38.7 - 80.0 11/20/2018 [facility] Automated blood lymphocyte count as percentage ot total leukocytes 16.9 18.0 - 39.1 11/20/2018 [facility] Automated blood monocyte count as percentage of total leukocytes 8.8 4.4 - 11.3 11/20/2018 [facility] Automated blood eosinophil count as percentage of total leukocytes 1.5 0.0 - 6.0 11/20/2018 [facility] Automated blood basophil count as percentage of total leukocytes 0.7 0.0 - 1.0 11/20/2018 [facility] IM GRANULOCYTES % 0.4 0.0 - 1.0 11/20/2018 [facility] Automated blood neutrophil count 4.9 2.1 - 6.9 11/20/2018 [facility] Blood lymphocytes count (number/volume) 1.2 1.0 - 3.2 11/20/2018 [facility] Blood monocytes automated count (number/volume) 0.6 0.2 - 0.8 11/20/2018 [facility] Automated blood eosinophil count 0.1 0.0 - 0.4 11/20/2018 [facility] Automated blood basophil count (count/volume) 0.1 0.0 - 0.1 11/20/2018 [facility] Absolute Immature Granulocyte (auto 0.03 0 - 0.1 11/20/2018 [facility] Prothrombin time (PT) in platelet poor plasma by coagulation assay 16.2 11.9 - 14.5 11/20/2018 [facility] INR in Platelet poor plasma by Coagulation assay 1.24 11/20/2018 [facility] Activated partial thromboplastin time (aPTT) in platelet poor plasma bycoagulation assay 36.7 23.8 - 35.5 11/20/2018 [facility] Serum or plasma magnesium measurement (mass/volume) 2.1 1.3 - 2.1 11/20/2018 [facility] Serum or plasma total bilirubin measurement (mass/volume) 0.3 0.2 - 1.2 11/20/2018 [facility] Aspartate Amino Transf (AST/SGOT) 33 5 - 34 11/20/2018 [facility] Serum or plasma alanine aminotransferase measurement (enzymatic activity/volume) 25 0 - 55 11/20/2018 [facility] Serum or plasma protein measurement (mass/volume) 7.2 6.5 - 8.1 11/20/2018 [facility] Serum or plasma albumin measurement (mass/volume) 3.6 3.5 - 5.0 11/20/2018 [facility] Plasma globulin measurement (mass/volume) 3.6 2.3 - 3.5 11/20/2018 [facility] Serum or plasma albumin/globulin mass ratio 1.0 0.8 - 2.0 11/20/2018 [facility] Serum or plasma alkaline phosphatase measurement (enzymatic activity/volume) 95 40 - 150 11/20/2018 [facility] Free thyroxine index 2.8752 1.4 - 3.8 11/20/2018 [facility] Serum or plasma thyroxine (T4) measurement (mass/volume) 8.79 4.5 - 10.9 11/20/2018 [facility] Serum or plasma triiodothyronine resin uptake (T3RU) 32.71 22.5 - 37.0 11/20/2018 [facility] Serum or plasma thyrotropin measurement by detection limit <=0.005 miu/l (units/volume) 1.828 0.350 - 4.940 11/20/2018 [facility] Capillary blood glucose measurement by glucometer (mass/volume) 98 70 - 120 08/03/2018 [facility] Urine color determination YELLOW YELLOW 08/03/2018 [facility] Urine clarity CLOUDY CLEAR 08/03/2018 [facility] Specific gravity of Urine by Test strip 1.030 1.010 - 1.025 08/03/2018 [facility] Urine pH measurement by automated test strip 6 5 - 7 08/03/2018 [facility] Urine leukocyte esterase detection by dipstick 1+ NEGATIVE 08/03/2018 [facility] Urine nitrite detection NEGATIVE NEGATIVE 08/03/2018 [facility] Urine protein measurement by test strip (mass/volume) 1+ NEGATIVE 08/03/2018 [facility] Urine glucose detection NEGATIVE NEGATIVE 08/03/2018 [facility] Urine ketones detection by automated test strip NEGATIVE NEGATIVE 08/03/2018 [facility] Urine urobilinogen measurement by test strip (mass/volume) 0.2 0.2 - 1 08/03/2018 [facility] Urine total bilirubin measurement (mass/volume) NEGATIVE NEGATIVE 08/03/2018 [facility] Urine erythrocytes detection 3+ NEGATIVE 08/03/2018 [facility] Automated urine sediment leukocyte count by microscopy (number/high power field) 11-20 0 - 5 08/03/2018 [facility] Erythrocytes detection in urine sediment by light microscopy 11-20 0 - 5 08/03/2018 [facility] Bacteria detection in urine sediment by light microscopy MODERATE NONE 08/03/2018 [facility] Epithelial cells detection in urine sediment by light microscopy FEW NONE 08/03/2018 [facility] Blood leukocytes automated count (number/volume) 13.63 4.8 - 10.8 08/03/2018 [facility] Blood erythrocytes automated count (number/volume) 4.85 3.6 - 5.1 08/03/2018 [facility] Blood hemoglobin measurement (moles/volume) 11.8 12.0 - 16.0 08/03/2018 [facility] Automated blood hematocrit (volume fraction) 37.5 34.2 - 44.1 08/03/2018 [facility] Automated erythrocyte mean corpuscular volume 77.3 81 - 99 08/03/2018 [facility] Automated erythrocyte mean corpuscular hemoglobin (mass per erythrocyte) 24.3 28 - 32 08/03/2018 [facility] Automated erythrocyte mean corpuscular hemoglobin concentration measurement (mass/volume) 31.5 31 - 35 08/03/2018 [facility] RDW BldCo-Rto 22.4 11.7 - 14.4 08/03/2018 [facility] Automated blood platelet count (count/volume) 330 140 - 360 08/03/2018 [facility] Automated blood segmented neutrophil count as percentage of total leukocytes 84.6 38.7 - 80.0 08/03/2018 [facility] Automated blood lymphocyte count as percentage ot total leukocytes 8.4 18.0 - 39.1 08/03/2018 [facility] Automated blood monocyte count as percentage of total leukocytes 5.6 4.4 - 11.3 08/03/2018 [facility] Automated blood eosinophil count as percentage of total leukocytes 0.7 0.0 - 6.0 08/03/2018 [facility] Automated blood basophil count as percentage of total leukocytes 0.3 0.0 - 1.0 08/03/2018 [facility] IM GRANULOCYTES % 0.4 0.0 - 1.0 08/03/2018 [facility] Automated blood neutrophil count 11.5 2.1 - 6.9 08/03/2018 [facility] Blood lymphocytes count (number/volume) 1.1 1.0 - 3.2 08/03/2018 [facility] Blood monocytes automated count (number/volume) 0.8 0.2 - 0.8 08/03/2018 [facility] Automated blood eosinophil count 0.1 0.0 - 0.4 08/03/2018 [facility] Automated blood basophil count (count/volume) 0.0 0.0 - 0.1 08/03/2018 [facility] Absolute Immature Granulocyte (auto 0.06 0 - 0.1 08/03/2018 [facility] Serum or plasma sodium measurement (moles/volume) 138 136 - 145 08/03/2018 [facility] Serum or plasma potassium measurement (moles/volume) 4.1 3.5 - 5.1 08/03/2018 [facility] Serum or plasma chloride measurement (moles/volume) 103 98 - 107 08/03/2018 [facility] Serum or plasma carbon dioxide, total measurement (moles/volume) 25 22 - 29 08/03/2018 [facility] Serum or plasma anion gap 14.1 8 - 16 08/03/2018 [facility] Serum or plasma urea nitrogen measurement (mass/volume) 28 7 - 26 08/03/2018 [facility] Serum or plasma creatinine measurement (mass/volume) 0.84 0.57 - 1.11 08/03/2018 [facility] Serum or plasma urea nitrogen/creatinine mass ratio 33 6 - 25 08/03/2018 [facility] Estimated glomerular filtration rate (GFR) determination > 60 60 08/03/2018 [facility] Glucose measurement 100 74 - 118 08/03/2018 [facility] Serum or plasma calcium measurement (mass/volume) 9.4 8.4 - 10.2 08/03/2018 [facility] Serum or plasma total bilirubin measurement (mass/volume) 0.5 0.2 - 1.2 08/03/2018 [facility] Aspartate Amino Transf (AST/SGOT) 19 5 - 34 08/03/2018 [facility] Serum or plasma alanine aminotransferase measurement (enzymatic activity/volume) 23 0 - 55 08/03/2018 [facility] Serum or plasma protein measurement (mass/volume) 6.9 6.5 - 8.1 08/03/2018 [facility] Serum or plasma albumin measurement (mass/volume) 3.2 3.5 - 5.0 08/03/2018 [facility] Plasma globulin measurement (mass/volume) 3.7 2.3 - 3.5 08/03/2018 [facility] Serum or plasma albumin/globulin mass ratio 0.9 0.8 - 2.0 08/03/2018 [facility] Serum or plasma alkaline phosphatase measurement (enzymatic activity/volume) 111 40 - 150 08/03/2018 [facility] Vital Signs Vital Sign Value Date Comments Source Encounters Location Location Details Encounter Type Encounter Number Reason For Visit Attending Provider ADM Date DC Date Status Source Departed Emergency Room [id number] LEONOR AMARO MD 08/03/2018 08/03/2018 [facility] Discharged Inpatient (obs) [id number] JAILENE DC MD 11/20/2018 11/22/2018 [facility] Procedures Procedure Code Date Perfomer Comments Source Computed tomography of abdomen and pelvis with contrast [id number] 08/03/2018 [facility]
== END | disposition home or self-care (01) ==
LOC: CATH LAB 13:04
PROVIDERS: ATTEND Internal Medicine Cardiovascular Disease
DX: I25.10 Atherosclerotic heart disease of native coronary artery without angina pectoris (principal); R94.39 Abnormal result of other cardiovascular function study; I77.1 Stricture of artery; R00.0 Tachycardia, unspecified; I49.3 Ventricular premature depolarization; I87.2 Venous insufficiency (chronic) (peripheral); I83.813 Varicose veins of bilateral lower extremities with pain; E13.8 Other specified diabetes mellitus with unspecified complications; Z01.812 Encounter for preprocedural laboratory examination; Z79.02 Long term (current) use of antithrombotics/antiplatelets; Z68.38 Body mass index [BMI] 38.0-38.9, adult
CPT/HCPCS: 36415 ×2; 80053; 84132; 85025; 85610; 93458; C1760; C1769; C1887; J1644; J2001; J2250; Q9967

== ENCOUNTER 2019-04-28 19:38 | Inpatient (IN) | payer MEDICARE ==
[~2019-04-28] VITALS: Ht 167.6 cm; Wt 104.3 kg
[~2019-04-28 19:38] MED LIST changes: -ATROPINE SULFATE 0.1 MG/ML 10ML SYR ONE; -FENTANYL CITRATE/PF 100MCG/2 ML INJ ONE; -HEPARIN SOD (PORCINE) 1000 UNIT/ML 30ML ONE; -HEPARIN SOD/SOD CHLORIDE 2,000 ML ONE; -IOPAMIDOL 370 MG/ML 200 ML INFUS..BTL INJ ONE; -LIDOCAINE HCL 2% LOCAL 20 ML VIAL ONE; -MIDAZOLAM HCL 2 MG/2 ML VIAL ONE; -NITROGLYCERIN/D5W 200 MCG/ML 250 ML ONE; -VERAPAMIL HCL 2.5 MG/ML 2 ML VIAL ONE
--- OUTSIDE RECORDS SUMMARY | 2019-04-28 19:42 | XMS REPORT | Continuity of Care Document ---
Author Author byUs Address Unknown Phone Unavailable Care Team Providers Care Collision Worker Name Role Phone [facility] [employer] Unavailable Unavailable Problems Problem Status Onset Date Classification Date Reported Comments Source Hypochloremia Active 03/28/2016 Problem 11/23/2018 [facility] Hyponatremia Active 03/28/2016 Problem 11/23/2018 [facility] Urinary tract infection Active 03/28/2016 Problem 11/23/2018 [facility] Concussion Active Problem 11/23/2018 [facility] Contusion Active Problem 11/23/2018 [facility] 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 [facility] Cardiac arrhythmia Active Problem 11/23/2018 [facility] Shortness of breath Active Problem 11/23/2018 [facility] Medications Medication Details Route Status Patient Instructions Ordering Provider Order Date Source Metformin Hcl (Glucophage) 1,000 Mg Tablet, 1 Tab Oral Twice A Day Active 11/21/2018 [facility] Ciprofloxacin Hcl (Cipro) 250 Mg Tablet, 250 Mg Oral Twice A Day Active 11/20/2018 [facility] Cyclosporine (Restasis) 1 Each Droperette, Each Eye Twice A Day Active 11/20/2018 [facility] Liraglutide (Victoza 2-Ethan) 0.6 Mg/0.1 Ml Pen.injctr, 1.8 Mg Sub-Q Daily Active 11/20/2018 [facility] Ramipril 10 Mg Capsule, 1 Tab Oral Twice A Day Active 11/20/2018 [facility] Amlodipine Besylate 5 Mg Tablet, 1 Tab Oral Daily Active 03/29/2016 [facility] Warfarin Sodium 5 Mg Tablet, 1 Tab Oral 5 Days/Week Active 12/21/2014 [facility] Tramadol Hcl 50 Mg Tablet, 1 Tab Oral Daily Active 02/04/2014 [facility] Atorvastatin Calcium (Lipitor) 40 Mg Tablet Daily Active [facility] Cholecalciferol (Vitamin D3) (Vitamin D3) 5,000 Unit Capsule Daily Active [facility] Ciprofloxacin Hcl (Cipro) 250 Mg Tablet Twice A Day Active [facility] Cyclosporine (Restasis) 1 Each Droperette Twice A Day Active [facility] Duloxetine Hcl (Cymbalta) 60 Mg Capsule. Daily Active [facility] Esomeprazole Mag Trihydrate (Nexium) 40 Mg Capsule. Daily Active [facility] Ferrous Sulfate (Iron Supplement) 325 Mg Tablet Twice A Day Active [facility] Folic Acid 1 Mg Tablet Daily Active [facility] Gabapentin 600 Mg Tablet Three Times A Day Active [facility] Hydrocodone Bit/Acetaminophen (Hydrocet 5-500 Capsule) 1 Each Capsule As Needed Active [facility] Insulin Glargine,Hum.rec.anlog (Lantus) 100 Unit/1 Ml Vial Daily Active [facility] Levothyroxine Sodium (Synthroid) 50 Mcg Tablet Daily Active [facility] Liraglutide (Victoza 2-Ethan) 0.6 Mg/0.1 Ml Pen.injctr Daily Active [facility] Metformin Hcl (Glucophage) 1,000 Mg Tablet Twice A Day Active [facility] Oxybutynin Chloride (Ditropan Xl) 5 Mg Tab.er.24 Daily Active [facility] Ramipril 10 Mg Capsule Twice A Day Active [facility] Repaglinide (Prandin) 1 Mg Tablet 3AM/4NOON/2HS Active [facility] Rivaroxaban (Xarelto) 10 Mg Tablet Daily Active [facility] Vitamin B-6 Daily Active [facility] Polyethylene Glycol 3350 (Miralax) 17 Gm Powd.pack Daily Active [facility] Xultophy Daily Active [facility] Allergies, Adverse Reactions, Alerts No Known Medication Allergies Immunizations No Data Provided for This Section Results Order Name Results Value Reference Range Date Interpretation Comments Source Capillary blood glucose measurement by glucometer (mass/volume) 120 70 - 120 11/22/2018 [facility] Serum or plasma creatine kinase measurement (enzymatic activity/volume) 48 29 - 168 11/21/2018 [facility] Serum or plasma creatine kinase MB measurement (mass/volume) 1.50 0 - 5.0 11/21/2018 [facility] Troponin I measurement by highly sensitive enzyme immunoassay 0.017 0 - 0.300 11/21/2018 [facility] Serum or plasma sodium measurement (moles/volume) 138 136 - 145 11/21/2018 [facility] Serum or plasma potassium measurement (moles/volume) 4.0 3.5 - 5.1 11/21/2018 [facility] Serum or plasma chloride measurement (moles/volume) 106 98 - 107 11/21/2018 [facility] Serum or plasma carbon dioxide, total measurement (moles/volume) 21 22 - 29 11/21/2018 [facility] Serum or plasma anion gap 15.0 8 - 16 11/21/2018 [facility] Serum or plasma urea nitrogen measurement (mass/volume) 29 7 - 26 11/21/2018 [facility] Serum or plasma creatinine measurement (mass/volume) 0.87 0.57 - 1.11 11/21/2018 [facility] Serum or plasma urea nitrogen/creatinine mass ratio 33 6 - 25 11/21/2018 [facility] Estimated glomerular filtration rate (GFR) determination > 60 60 11/21/2018 [facility] Glucose measurement 99 74 - 118 11/21/2018 [facility] Serum or plasma calcium measurement (mass/volume) 9.3 8.4 - 10.2 11/21/2018 [facility] Serum or plasma triglyceride measurement (mass/volume) 99 0 - 149 11/21/2018 [facility] Serum or plasma cholesterol measurement (mass/volume) 178 0 - 199 11/21/2018 [facility] Serum or plasma cholesterol in LDL measurement (mass/volume) 105 60 - 130 11/21/2018 [facility] Serum or plasma cholesterol in HDL measurement (mass/volume) 53 40 - 60 11/21/2018 [facility] Serum or plasma total cholesterol/cholesterol in HDL mass ratio 3.4 3.0 - 3.6 11/21/2018 [facility] Urine color determination YELLOW YELLOW 11/20/2018 [facility] Urine clarity SL CLOUDY CLEAR 11/20/2018 [facility] Specific gravity of Urine by Test strip 1.030 1.010 - 1.025 11/20/2018 [facility] Urine pH measurement by automated test strip 5 5 - 7 11/20/2018 [facility] Urine leukocyte esterase detection by dipstick NEGATIVE NEGATIVE 11/20/2018 [facility] Urine nitrite detection NEGATIVE NEGATIVE 11/20/2018 [facility] Urine protein measurement by test strip (mass/volume) NEGATIVE NEGATIVE 11/20/2018 [facility] Urine glucose detection NEGATIVE NEGATIVE 11/20/2018 [facility] Urine ketones detection by automated test strip NEGATIVE NEGATIVE 11/20/2018 [facility] Urine urobilinogen measurement by test strip (mass/volume) 0.2 0.2 - 1 11/20/2018 [facility] Urine total bilirubin measurement (mass/volume) NEGATIVE NEGATIVE 11/20/2018 [facility] Urine erythrocytes detection NEGATIVE NEGATIVE 11/20/2018 [facility] Automated urine sediment leukocyte count by microscopy (number/high power field) NONE 0 - 5 11/20/2018 [facility] Erythrocytes detection in urine sediment by light microscopy NONE 0 - 5 11/20/2018 [facility] Bacteria detection in urine sediment by light microscopy FEW NONE 11/20/2018 [facility] Epithelial cells detection in urine sediment by light microscopy MODERATE NONE 11/20/2018 [facility] Amorphous sediment detection in urine sediment by light microscopy FEW FEW 11/20/2018 [facility] Blood leukocytes automated count (number/volume) 6.80 4.8 - 10.8 11/20/2018 [facility] Blood erythrocytes automated count (number/volume) 5.31 3.6 - 5.1 11/20/2018 [facility] Blood hemoglobin measurement (moles/volume) 14.7 12.0 - 16.0 11/20/2018 [facility] Automated blood hematocrit (volume fraction) 44.8 34.2 - 44.1 11/20/2018 [facility] Automated erythrocyte mean corpuscular volume 84.4 81 - 99 11/20/2018 [facility] Automated erythrocyte mean corpuscular hemoglobin (mass per erythrocyte) 27.7 28 - 32 11/20/2018 [facility] Automated erythrocyte mean corpuscular hemoglobin concentration measurement (mass/volume) 32.8 31 - 35 11/20/2018 [facility] RDW BldCo-Rto 15.7 11.7 - 14.4 11/20/2018 [facility] Automated blood platelet count (count/volume) 285 140 - 360 11/20/2018 [facility] Automated blood segmented neutrophil count as percentage of total leukocytes 71.7 38.7 - 80.0 11/20/2018 [facility] Automated blood lymphocyte count as percentage ot total leukocytes 16.9 18.0 - 39.1 11/20/2018 [facility] Automated blood monocyte count as percentage of total leukocytes 8.8 4.4 - 11.3 11/20/2018 [facility] Automated blood eosinophil count as percentage of total leukocytes 1.5 0.0 - 6.0 11/20/2018 [facility] Automated blood basophil count as percentage of total leukocytes 0.7 0.0 - 1.0 11/20/2018 [facility] IM GRANULOCYTES % 0.4 0.0 - 1.0 11/20/2018 [facility] Automated blood neutrophil count 4.9 2.1 - 6.9 11/20/2018 [facility] Blood lymphocytes count (number/volume) 1.2 1.0 - 3.2 11/20/2018 [facility] Blood monocytes automated count (number/volume) 0.6 0.2 - 0.8 11/20/2018 [facility] Automated blood eosinophil count 0.1 0.0 - 0.4 11/20/2018 [facility] Automated blood basophil count (count/volume) 0.1 0.0 - 0.1 11/20/2018 [facility] Absolute Immature Granulocyte (auto 0.03 0 - 0.1 11/20/2018 [facility] Prothrombin time (PT) in platelet poor plasma by coagulation assay 16.2 11.9 - 14.5 11/20/2018 [facility] INR in Platelet poor plasma by Coagulation assay 1.24 11/20/2018 [facility] Activated partial thromboplastin time (aPTT) in platelet poor plasma bycoagulation assay 36.7 23.8 - 35.5 11/20/2018 [facility] Serum or plasma magnesium measurement (mass/volume) 2.1 1.3 - 2.1 11/20/2018 [facility] Serum or plasma total bilirubin measurement (mass/volume) 0.3 0.2 - 1.2 11/20/2018 [facility] Aspartate Amino Transf (AST/SGOT) 33 5 - 34 11/20/2018 [facility] Serum or plasma alanine aminotransferase measurement (enzymatic activity/volume) 25 0 - 55 11/20/2018 [facility] Serum or plasma protein measurement (mass/volume) 7.2 6.5 - 8.1 11/20/2018 [facility] Serum or plasma albumin measurement (mass/volume) 3.6 3.5 - 5.0 11/20/2018 [facility] Plasma globulin measurement (mass/volume) 3.6 2.3 - 3.5 11/20/2018 [facility] Serum or plasma albumin/globulin mass ratio 1.0 0.8 - 2.0 11/20/2018 [facility] Serum or plasma alkaline phosphatase measurement (enzymatic activity/volume) 95 40 - 150 11/20/2018 [facility] Free thyroxine index 2.8752 1.4 - 3.8 11/20/2018 [facility] Serum or plasma thyroxine (T4) measurement (mass/volume) 8.79 4.5 - 10.9 11/20/2018 [facility] Serum or plasma triiodothyronine resin uptake (T3RU) 32.71 22.5 - 37.0 11/20/2018 [facility] Serum or plasma thyrotropin measurement by detection limit <=0.005 miu/l (units/volume) 1.828 0.350 - 4.940 11/20/2018 [facility] Capillary blood glucose measurement by glucometer (mass/volume) 98 70 - 120 08/03/2018 [facility] Urine color determination YELLOW YELLOW 08/03/2018 [facility] Urine clarity CLOUDY CLEAR 08/03/2018 [facility] Specific gravity of Urine by Test strip 1.030 1.010 - 1.025 08/03/2018 [facility] Urine pH measurement by automated test strip 6 5 - 7 08/03/2018 [facility] Urine leukocyte esterase detection by dipstick 1+ NEGATIVE 08/03/2018 [facility] Urine nitrite detection NEGATIVE NEGATIVE 08/03/2018 [facility] Urine protein measurement by test strip (mass/volume) 1+ NEGATIVE 08/03/2018 [facility] Urine glucose detection NEGATIVE NEGATIVE 08/03/2018 [facility] Urine ketones detection by automated test strip NEGATIVE NEGATIVE 08/03/2018 [facility] Urine urobilinogen measurement by test strip (mass/volume) 0.2 0.2 - 1 08/03/2018 [facility] Urine total bilirubin measurement (mass/volume) NEGATIVE NEGATIVE 08/03/2018 [facility] Urine erythrocytes detection 3+ NEGATIVE 08/03/2018 [facility] Automated urine sediment leukocyte count by microscopy (number/high power field) 11-20 0 - 5 08/03/2018 [facility] Erythrocytes detection in urine sediment by light microscopy 11-20 0 - 5 08/03/2018 [facility] Bacteria detection in urine sediment by light microscopy MODERATE NONE 08/03/2018 [facility] Epithelial cells detection in urine sediment by light microscopy FEW NONE 08/03/2018 [facility] Blood leukocytes automated count (number/volume) 13.63 4.8 - 10.8 08/03/2018 [facility] Blood erythrocytes automated count (number/volume) 4.85 3.6 - 5.1 08/03/2018 [facility] Blood hemoglobin measurement (moles/volume) 11.8 12.0 - 16.0 08/03/2018 [facility] Automated blood hematocrit (volume fraction) 37.5 34.2 - 44.1 08/03/2018 [facility] Automated erythrocyte mean corpuscular volume 77.3 81 - 99 08/03/2018 [facility] Automated erythrocyte mean corpuscular hemoglobin (mass per erythrocyte) 24.3 28 - 32 08/03/2018 [facility] Automated erythrocyte mean corpuscular hemoglobin concentration measurement (mass/volume) 31.5 31 - 35 08/03/2018 [facility] RDW BldCo-Rto 22.4 11.7 - 14.4 08/03/2018 [facility] Automated blood platelet count (count/volume) 330 140 - 360 08/03/2018 [facility] Automated blood segmented neutrophil count as percentage of total leukocytes 84.6 38.7 - 80.0 08/03/2018 [facility] Automated blood lymphocyte count as percentage ot total leukocytes 8.4 18.0 - 39.1 08/03/2018 [facility] Automated blood monocyte count as percentage of total leukocytes 5.6 4.4 - 11.3 08/03/2018 [facility] Automated blood eosinophil count as percentage of total leukocytes 0.7 0.0 - 6.0 08/03/2018 [facility] Automated blood basophil count as percentage of total leukocytes 0.3 0.0 - 1.0 08/03/2018 [facility] IM GRANULOCYTES % 0.4 0.0 - 1.0 08/03/2018 [facility] Automated blood neutrophil count 11.5 2.1 - 6.9 08/03/2018 [facility] Blood lymphocytes count (number/volume) 1.1 1.0 - 3.2 08/03/2018 [facility] Blood monocytes automated count (number/volume) 0.8 0.2 - 0.8 08/03/2018 [facility] Automated blood eosinophil count 0.1 0.0 - 0.4 08/03/2018 [facility] Automated blood basophil count (count/volume) 0.0 0.0 - 0.1 08/03/2018 [facility] Absolute Immature Granulocyte (auto 0.06 0 - 0.1 08/03/2018 [facility] Serum or plasma sodium measurement (moles/volume) 138 136 - 145 08/03/2018 [facility] Serum or plasma potassium measurement (moles/volume) 4.1 3.5 - 5.1 08/03/2018 [facility] Serum or plasma chloride measurement (moles/volume) 103 98 - 107 08/03/2018 [facility] Serum or plasma carbon dioxide, total measurement (moles/volume) 25 22 - 29 08/03/2018 [facility] Serum or plasma anion gap 14.1 8 - 16 08/03/2018 [facility] Serum or plasma urea nitrogen measurement (mass/volume) 28 7 - 26 08/03/2018 [facility] Serum or plasma creatinine measurement (mass/volume) 0.84 0.57 - 1.11 08/03/2018 [facility] Serum or plasma urea nitrogen/creatinine mass ratio 33 6 - 25 08/03/2018 [facility] Estimated glomerular filtration rate (GFR) determination > 60 60 08/03/2018 [facility] Glucose measurement 100 74 - 118 08/03/2018 [facility] Serum or plasma calcium measurement (mass/volume) 9.4 8.4 - 10.2 08/03/2018 [facility] Serum or plasma total bilirubin measurement (mass/volume) 0.5 0.2 - 1.2 08/03/2018 [facility] Aspartate Amino Transf (AST/SGOT) 19 5 - 34 08/03/2018 [facility] Serum or plasma alanine aminotransferase measurement (enzymatic activity/volume) 23 0 - 55 08/03/2018 [facility] Serum or plasma protein measurement (mass/volume) 6.9 6.5 - 8.1 08/03/2018 [facility] Serum or plasma albumin measurement (mass/volume) 3.2 3.5 - 5.0 08/03/2018 [facility] Plasma globulin measurement (mass/volume) 3.7 2.3 - 3.5 08/03/2018 [facility] Serum or plasma albumin/globulin mass ratio 0.9 0.8 - 2.0 08/03/2018 [facility] Serum or plasma alkaline phosphatase measurement (enzymatic activity/volume) 111 40 - 150 08/03/2018 [facility] Pathology Reports No Data Provided for This Section Diagnostic Reports No Data Provided for This Section Consultation Notes No Data Provided for This Section Discharge Summaries No Data Provided for This Section History and Physicals No Data Provided for This Section Vital Signs No Data Provided for This Section Encounters Location Location Details Encounter Type Encounter Number Reason For Visit Attending Provider ADM Date DC Date Status Source Departed Emergency Room [id number] LEONOR AMARO MD 08/03/2018 08/03/2018 [facility] Discharged Inpatient (obs) [id number] JAILENE DC MD 11/20/2018 11/22/2018 [facility] Procedures Procedure Code Date Perfomer Comments Source Computed tomography of abdomen and pelvis with contrast [id number] 08/03/2018 SANTY [facility] Assessment and Plan No Data Provided for This Section Plan of Care Plan of Care Date Source Discharge Date 11/22/18 7:00pm Disposition HOME, SELF-CARE Instructions/Education Provided Diabetes and Diet Prescriptions See Medication Section Referrals SHAWANDA SZYMANSKI DO (Cardiology) Order Date: 1 Week Entered Date: 11/22/2018 6:26pm Address: [address] [place] [address] [address] [place] [address] Additional Instructions/Education Follow up with Dr. Szymanski in 1 week 11/22/2018 [facility] Discharge Date 08/03/18 10:20pm Disposition HOME, SELF-CARE Condition at Discharge Stable Instructions/Education Provided Abdominal Pain - Adult Diarrhea - Adult Urinary Tract Infection - Women Prescriptions See Medication Section Referrals JOSÉ MANUEL SZYMANSKI DO Address: [address] [place] [id number] LIA DC MD Order Date: Call for an appointment Address: [address] [place] [address] [address] [place] [address] Additional Instructions/Education Call for follow up appointment to see your medical provider or the referral listed. Take over the counter Motrin or Tylenol medication as needed for comfort. If prescribed medication on discharge, take the medication as prescribed and adhere to the warnings given for medication. discussed at the bedside, drink fluids, rest and return to the emergency department for any fever, shortness of breath, chest pain, abdominal pain, trouble handling oral secretions or any new concerns. 08/03/2018 [facility] Social History Social History Date Source Social History Problem Response Recorded Date/Time Onset Date Status Hx Psychiatric Problems No 03/29/2016 12:21am Not Applicable Not Applicable Hx Eating Disorder No 03/29/2016 12:21am Not Applicable Not Applicable Hx Substance Use Disorder No 03/29/2016 12:21am Not Applicable Not Applicable Hx Depression No 03/29/2016 12:21am Not Applicable Not Applicable Hx Alcohol Use No 03/29/2016 12:21am Not Applicable Not Applicable Hx Substance Use Treatment No 03/29/2016 12:21am Not Applicable Not Applicable Hx Physical Abuse No 03/29/2016 12:21am Not Applicable Not Applicable Smoking Status Start Date Stop Date Former smoker 11/22/2018 [facility] Family History No Data Provided for This Section Advance Directives Order Name Results Value Date Source Advance Directives Advance Directives Directive Response Recorded Date/Time Does the patient have an advance directive? No 11/20/18 8:00pm If yes, is advance directive on file with [facility]? No 11/20/18 8:00pm If not on file with [facility] will patient provide a copy? No 11/20/18 8:00pm Do you have a Directive to Physician? No 11/20/18 12:31pm Do you have a Medical Power of Private Mortgage Banker Safe? No 11/20/18 12:31pm Do you have an out of hospital Do Not Resuscitate Order? No 11/20/18 12:31pm Do you have any special needs we should be aware of? No 11/20/18 12:31pm Do you have a support person here with you today? No 11/20/18 12:31pm Did patient receive Notice of Privacy Practices? Yes 11/20/18 12:31pm Did patient receive patient rights and responsibilities? Yes 11/20/18 12:31pm 11/22/2018 [facility] Advance Directives Advance Directives Directive Response Recorded Date/Time Does the patient have an advance directive? No 03/29/16 12:21am If yes, is advance directive on file with [facility]? No 03/29/16 12:21am If not on file with [facility] will patient provide a copy? No 03/29/16 12:21am Do you have a Directive to Physician? No 08/03/18 3:43pm Do you have a Medical Power of Private Mortgage Banker Safe? No 08/03/18 3:43pm Do you have an out of hospital Do Not Resuscitate Order? No 08/03/18 3:43pm Do you have any special needs we should be aware of? No 08/03/18 3:43pm Do you have a support person here with you today? Yes 08/03/18 3:43pm Did patient receive Notice of Privacy Practices? Yes 08/03/18 3:43pm Did patient receive patient rights and responsibilities? Yes 08/03/18 3:43pm 08/03/2018 [facility] Functional Status No Data Provided for This Section
[2019-04-28 20:53] LABS: BASOPHILS % 0.5 % (0.0-1.0); EOSINOPHILS # (AUTO) 0.2 (0.0-0.4); EOSINOPHILS % 2.3 % (0.0-6.0); LYMPHOCYTES # (AUTO) 1.5 (1.0-3.2); LYMPHOCYTES % 19.4 % (18.0-39.1); MEAN CORPUSCULAR HEMOGLOBIN 18.2 pg (28-32); MEAN CORPUSCULAR HGB CONC 27.4 g/dL (31-35); MEAN CORPUSCULAR VOLUME 66.3 fL (81-99); MONOCYTES # (AUTO) 0.8 (0.2-0.8); MONOCYTES % 10.3 % (4.4-11.3); NEUTROPHILS # (AUTO) 5.2 (2.1-6.9); NEUTROPHILS % 67.1 % (38.7-80.0); PLATELET COUNT 278 x10e3/uL (140-360); RED BLOOD COUNT 3.47 x10e6/uL (3.6-5.1); RED CELL DISTRIBUTION WIDTH 19.7 % (11.7-14.4)
[2019-04-28 20:56] LABS: HEMOGLOBIN 6.3 g/dL (12.0-16.0)
[2019-04-28 21:09] LABS: ALANINE AMINOTRANSFERASE 26 IU/L (0-55); ALBUMIN 3.5 g/dL (3.5-5.0); ALBUMIN/GLOBULIN RATIO 1.3 (0.8-2.0); ALKALINE PHOSPHATASE 96 IU/L (40-150); ANION GAP 15.3 mmol/L (8-16); BLOOD UREA NITROGEN 23 mg/dL (7-26); BUN/CREATININE RATIO 27 (6-25); CALCIUM 9.5 mg/dL (8.4-10.2); CARBON DIOXIDE 24 mmol/L (22-29); CHLORIDE 97 mmol/L (98-107); CREATINE KINASE 48 IU/L (29-168); CREATININE, SERUM 0.86 mg/dL (0.57-1.11); EST GLOMERULAR FILTRATION RATE > 60 ML/MIN (60-); GLUCOSE 102 mg/dL (74-118); POTASSIUM 4.3 mmol/L (3.5-5.1); SODIUM 132 mmol/L (136-145)
[2019-04-28] MEDS ORDERED: ACETAMINOPHEN 325 MG TAB PO NR (21:13)
[2019-04-28] MEDS ORDERED: SODIUM CHLORIDE 0.9% 250ML 250 ML IV ONE (21:15)
[2019-04-28] MEDS ORDERED: FUROSEMIDE INJ 10 MG/ML 2 ML VIAL IV PRN (21:15)
[2019-04-28] MEDS ORDERED: DEXAMETHASONE SOD PHOS 10 MG/1 ML VIAL IV NR (21:15)
[2019-04-28] MEDS ORDERED: FAMOTIDINE 20 MG/2 ML VIAL IV NR (21:15)
[2019-04-28] MEDS ORDERED: DIPHENHYDRAMINE HCL INJ 50 MG/ML VIAL IV NR (21:15)
--- OUTSIDE RECORDS SUMMARY | 2019-04-28 21:54 | XMS REPORT | Continuity of Care Document ---
Author Author [place] Address Unknown Phone Unavailable Care Team Providers Care Substance Abuse Prevention Coordinator Name Role Phone [facility] [employer] Information Exchange Unavailable Unavailable Problems Problem Status Onset Date Classification Date Reported Comments Source Hypochloremia Active 03/28/2016 Problem 11/23/2018 [facility] Hyponatremia Active 03/28/2016 Problem 11/23/2018 [facility] Urinary tract infection Active 03/28/2016 Problem 11/23/2018 [facility] Concussion Active Problem 11/23/2018 [facility] Contusion Active Problem 11/23/2018 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 Cardiac arrhythmia Active Problem 11/23/2018 [facility] Shortness of breath Active Problem 11/23/2018 [facility] Medications Medication Details Route Status Patient Instructions Ordering Provider Order Date Source Metformin Hcl (Glucophage) 1,000 Mg Tablet, 1 Tab Oral Twice A Day Active 11/21/2018 [facility] Ciprofloxacin Hcl (Cipro) 250 Mg Tablet, 250 Mg Oral Twice A Day Active 11/20/2018 [facility] Cyclosporine (Restasis) 1 Each Droperette, Each Eye Twice A Day Active 11/20/2018 [facility] Liraglutide (Victoza 2-Ethan) 0.6 Mg/0.1 Ml Pen.injctr, 1.8 Mg Sub-Q Daily Active 11/20/2018 [facility] Ramipril 10 Mg Capsule, 1 Tab Oral Twice A Day Active 11/20/2018 [facility] Amlodipine Besylate 5 Mg Tablet, 1 Tab Oral Daily Active 03/29/2016 [facility] Warfarin Sodium 5 Mg Tablet, 1 Tab Oral 5 Days/Week Active 12/21/2014 [facility] Tramadol Hcl 50 Mg Tablet, 1 Tab Oral Daily Active 02/04/2014 [facility] Atorvastatin Calcium (Lipitor) 40 Mg Tablet Daily Active [facility] Cholecalciferol (Vitamin D3) (Vitamin D3) 5,000 Unit Capsule Daily Active [facility] Ciprofloxacin Hcl (Cipro) 250 Mg Tablet Twice A Day Active [facility] Cyclosporine (Restasis) 1 Each Droperette Twice A Day Active [facility] Duloxetine Hcl (Cymbalta) 60 [address] Capsule. Daily Active [facility] Esomeprazole Mag Trihydrate (Nexium) 40 [address] Capsule. Daily Active [facility] Ferrous Sulfate (Iron Supplement) 325 Mg Tablet Twice A Day Active [facility] Folic Acid 1 Mg Tablet Daily Active [facility] Gabapentin 600 Mg Tablet Three Times A Day Active [facility] Hydrocodone Bit/Acetaminophen (Hydrocet 5-500 Capsule) 1 Each Capsule As Needed Active [facility] Insulin Glargine,Hum.rec.anlog (Lantus) 100 Unit/[address] Active [facility] Levothyroxine Sodium (Synthroid) 50 Mcg Tablet Daily Active [facility] Liraglutide (Victoza 2-Ethan) 0.6 Mg/0.[address]l [address].injctr Daily Active [facility] Metformin Hcl (Glucophage) 1,000 Mg Tablet Twice A Day Active [facility] Oxybutynin Chloride (Ditropan Xl) 5 Mg Tab.er.[address] [facility] Ramipril 10 Mg Capsule Twice A Day Active [facility] Repaglinide (Prandin) 1 Mg Tablet 3AM/4NOON/2HS Active [facility] Rivaroxaban (Xarelto) 10 Mg Tablet Daily Active [facility] Vitamin B-[address] [facility] Polyethylene Glycol 3350 (Miralax) 17 Gm Powd.pack Daily Active [facility] Xultophy Daily Active [facility] Allergies, Adverse Reactions, Alerts No Known Medication Allergies Immunizations No Data Provided for This Section Results Order Name Results Value Reference Range Date Interpretation Comments Source Capillary blood glucose measurement by glucometer (mass/volume) 120 70 - 120 11/22/2018 [facility] Serum or plasma creatine kinase measurement (enzymatic activity/volume) 48 29 - 168 11/21/2018 [facility] Serum or plasma creatine kinase MB measurement (mass/volume) 1.50 0 - 5.0 11/21/2018 [facility] Troponin I measurement by highly sensitive enzyme immunoassay 0.017 0 - 0.300 11/21/2018 [facility] Serum or plasma sodium measurement (moles/volume) 138 136 - 145 11/21/2018 [facility] Serum or plasma potassium measurement (moles/volume) 4.0 3.5 - 5.1 11/21/2018 [facility] Serum or plasma chloride measurement (moles/volume) 106 98 - 107 11/21/2018 [facility] Serum or plasma carbon dioxide, total measurement (moles/volume) 21 22 - 29 11/21/2018 [facility] Serum or plasma anion gap 15.0 8 - 16 11/21/2018 [facility] Serum or plasma urea nitrogen measurement (mass/volume) 29 7 - 26 11/21/2018 [facility] Serum or plasma creatinine measurement (mass/volume) 0.87 0.57 - 1.11 11/21/2018 [facility] Serum or plasma urea nitrogen/creatinine mass ratio 33 6 - 25 11/21/2018 [facility] Estimated glomerular filtration rate (GFR) determination > 60 60 11/21/2018 [facility] Glucose measurement 99 74 - 118 11/21/2018 [facility] Serum or plasma calcium measurement (mass/volume) 9.3 8.4 - 10.2 11/21/2018 [facility] Serum or plasma triglyceride measurement (mass/volume) 99 0 - 149 11/21/2018 [facility] Serum or plasma cholesterol measurement (mass/volume) 178 0 - 199 11/21/2018 [facility] Serum or plasma cholesterol in LDL measurement (mass/volume) 105 60 - 130 11/21/2018 [facility] Serum or plasma cholesterol in HDL measurement (mass/volume) 53 40 - 60 11/21/2018 [facility] Serum or plasma total cholesterol/cholesterol in HDL mass ratio 3.4 3.0 - 3.6 11/21/2018 [facility] Urine color determination YELLOW YELLOW 11/20/2018 [facility] Urine clarity SL CLOUDY CLEAR 11/20/2018 [facility] Specific gravity of Urine by Test strip 1.030 1.010 - 1.025 11/20/2018 [facility] Urine pH measurement by automated test strip 5 5 - 7 11/20/2018 [facility] Urine leukocyte esterase detection by dipstick NEGATIVE NEGATIVE 11/20/2018 [facility] Urine nitrite detection NEGATIVE NEGATIVE 11/20/2018 [facility] Urine protein measurement by test strip (mass/volume) NEGATIVE NEGATIVE 11/20/2018 [facility] Urine glucose detection NEGATIVE NEGATIVE 11/20/2018 [facility] Urine ketones detection by automated test strip NEGATIVE NEGATIVE 11/20/2018 [facility] Urine urobilinogen measurement by test strip (mass/volume) 0.2 0.2 - 1 11/20/2018 [facility] Urine total bilirubin measurement (mass/volume) NEGATIVE NEGATIVE 11/20/2018 [facility] Urine erythrocytes detection NEGATIVE NEGATIVE 11/20/2018 [facility] Automated urine sediment leukocyte count by microscopy (number/high power field) NONE 0 - 5 11/20/2018 [facility] Erythrocytes detection in urine sediment by light microscopy NONE 0 - 5 11/20/2018 [facility] Bacteria detection in urine sediment by light microscopy FEW NONE 11/20/2018 [facility] Epithelial cells detection in urine sediment by light microscopy MODERATE NONE 11/20/2018 [facility] Amorphous sediment detection in urine sediment by light microscopy FEW FEW 11/20/2018 [facility] Blood leukocytes automated count (number/volume) 6.80 4.8 - 10.8 11/20/2018 [facility] Blood erythrocytes automated count (number/volume) 5.31 3.6 - 5.1 11/20/2018 [facility] Blood hemoglobin measurement (moles/volume) 14.7 12.0 - 16.0 11/20/2018 [facility] Automated blood hematocrit (volume fraction) 44.8 34.2 - 44.1 11/20/2018 [facility] Automated erythrocyte mean corpuscular volume 84.4 81 - 99 11/20/2018 [facility] Automated erythrocyte mean corpuscular hemoglobin (mass per erythrocyte) 27.7 28 - 32 11/20/2018 [facility] Automated erythrocyte mean corpuscular hemoglobin concentration measurement (mass/volume) 32.8 31 - 35 11/20/2018 [facility] RDW BldCo-Rto 15.7 11.7 - 14.4 11/20/2018 [facility] Automated blood platelet count (count/volume) 285 140 - 360 11/20/2018 [facility] Automated blood segmented neutrophil count as percentage of total leukocytes 71.7 38.7 - 80.0 11/20/2018 [facility] Automated blood lymphocyte count as percentage ot total leukocytes 16.9 18.0 - 39.1 11/20/2018 [facility] Automated blood monocyte count as percentage of total leukocytes 8.8 4.4 - 11.3 11/20/2018 [facility] Automated blood eosinophil count as percentage of total leukocytes 1.5 0.0 - 6.0 11/20/2018 [facility] Automated blood basophil count as percentage of total leukocytes 0.7 0.0 - 1.0 11/20/2018 [facility] IM GRANULOCYTES % 0.4 0.0 - 1.0 11/20/2018 [facility] Automated blood neutrophil count 4.9 2.1 - 6.9 11/20/2018 [facility] Blood lymphocytes count (number/volume) 1.2 1.0 - 3.2 11/20/2018 [facility] Blood monocytes automated count (number/volume) 0.6 0.2 - 0.8 11/20/2018 [facility] Automated blood eosinophil count 0.1 0.0 - 0.4 11/20/2018 [facility] Automated blood basophil count (count/volume) 0.1 0.0 - 0.1 11/20/2018 [facility] Absolute Immature Granulocyte (auto 0.03 0 - 0.1 11/20/2018 [facility] Prothrombin time (PT) in platelet poor plasma by coagulation assay 16.2 11.9 - 14.5 11/20/2018 [facility] INR in Platelet poor plasma by Coagulation assay 1.24 11/20/2018 [facility] Activated partial thromboplastin time (aPTT) in platelet poor plasma bycoagulation assay 36.7 23.8 - 35.5 11/20/2018 [facility] Serum or plasma magnesium measurement (mass/volume) 2.1 1.3 - 2.1 11/20/2018 [facility] Serum or plasma total bilirubin measurement (mass/volume) 0.3 0.2 - 1.2 11/20/2018 [facility] Aspartate Amino Transf (AST/SGOT) 33 5 - 34 11/20/2018 [facility] Serum or plasma alanine aminotransferase measurement (enzymatic activity/volume) 25 0 - 55 11/20/2018 [facility] Serum or plasma protein measurement (mass/volume) 7.2 6.5 - 8.1 11/20/2018 [facility] Serum or plasma albumin measurement (mass/volume) 3.6 3.5 - 5.0 11/20/2018 [facility] Plasma globulin measurement (mass/volume) 3.6 2.3 - 3.5 11/20/2018 [facility] Serum or plasma albumin/globulin mass ratio 1.0 0.8 - 2.0 11/20/2018 [facility] Serum or plasma alkaline phosphatase measurement (enzymatic activity/volume) 95 40 - 150 11/20/2018 [facility] Free thyroxine index 2.8752 1.4 - 3.8 11/20/2018 [facility] Serum or plasma thyroxine (T4) measurement (mass/volume) 8.79 4.5 - 10.9 11/20/2018 [facility] Serum or plasma triiodothyronine resin uptake (T3RU) 32.71 22.5 - 37.0 11/20/2018 [facility] Serum or plasma thyrotropin measurement by detection limit <=0.005 miu/l (units/volume) 1.828 0.350 - 4.940 11/20/2018 [facility] Capillary blood glucose measurement by glucometer (mass/volume) 98 70 - 120 08/03/2018 [facility] Urine color determination YELLOW YELLOW 08/03/2018 [facility] Urine clarity CLOUDY CLEAR 08/03/2018 [facility] Specific gravity of Urine by Test strip 1.030 1.010 - 1.025 08/03/2018 [facility] Urine pH measurement by automated test strip 6 5 - 7 08/03/2018 [facility] Urine leukocyte esterase detection by dipstick 1+ NEGATIVE 08/03/2018 [facility] Urine nitrite detection NEGATIVE NEGATIVE 08/03/2018 [facility] Urine protein measurement by test strip (mass/volume) 1+ NEGATIVE 08/03/2018 [facility] Urine glucose detection NEGATIVE NEGATIVE 08/03/2018 [facility] Urine ketones detection by automated test strip NEGATIVE NEGATIVE 08/03/2018 [facility] Urine urobilinogen measurement by test strip (mass/volume) 0.2 0.2 - 1 08/03/2018 [facility] Urine total bilirubin measurement (mass/volume) NEGATIVE NEGATIVE 08/03/2018 [facility] Urine erythrocytes detection 3+ NEGATIVE 08/03/2018 [facility] Automated urine sediment leukocyte count by microscopy (number/high power field) 11-20 0 - 5 08/03/2018 [facility] Erythrocytes detection in urine sediment by light microscopy 11-20 0 - 5 08/03/2018 [facility] Bacteria detection in urine sediment by light microscopy MODERATE NONE 08/03/2018 [facility] Epithelial cells detection in urine sediment by light microscopy FEW NONE 08/03/2018 [facility] Blood leukocytes automated count (number/volume) 13.63 4.8 - 10.8 08/03/2018 [facility] Blood erythrocytes automated count (number/volume) 4.85 3.6 - 5.1 08/03/2018 [facility] Blood hemoglobin measurement (moles/volume) 11.8 12.0 - 16.0 08/03/2018 [facility] Automated blood hematocrit (volume fraction) 37.5 34.2 - 44.1 08/03/2018 [facility] Automated erythrocyte mean corpuscular volume 77.3 81 - 99 08/03/2018 [facility] Automated erythrocyte mean corpuscular hemoglobin (mass per erythrocyte) 24.3 28 - 32 08/03/2018 [facility] Automated erythrocyte mean corpuscular hemoglobin concentration measurement (mass/volume) 31.5 31 - 35 08/03/2018 [facility] RDW BldCo-Rto 22.4 11.7 - 14.4 08/03/2018 [facility] Automated blood platelet count (count/volume) 330 140 - 360 08/03/2018 [facility] Automated blood segmented neutrophil count as percentage of total leukocytes 84.6 38.7 - 80.0 08/03/2018 [facility] Automated blood lymphocyte count as percentage ot total leukocytes 8.4 18.0 - 39.1 08/03/2018 [facility] Automated blood monocyte count as percentage of total leukocytes 5.6 4.4 - 11.3 08/03/2018 [facility] Automated blood eosinophil count as percentage of total leukocytes 0.7 0.0 - 6.0 08/03/2018 [facility] Automated blood basophil count as percentage of total leukocytes 0.3 0.0 - 1.0 08/03/2018 [facility] IM GRANULOCYTES % 0.4 0.0 - 1.0 08/03/2018 [facility] Automated blood neutrophil count 11.5 2.1 - 6.9 08/03/2018 [facility] Blood lymphocytes count (number/volume) 1.1 1.0 - 3.2 08/03/2018 [facility] Blood monocytes automated count (number/volume) 0.8 0.2 - 0.8 08/03/2018 [facility] Automated blood eosinophil count 0.1 0.0 - 0.4 08/03/2018 [facility] Automated blood basophil count (count/volume) 0.0 0.0 - 0.1 08/03/2018 [facility] Absolute Immature Granulocyte (auto 0.06 0 - 0.1 08/03/2018 [facility] Serum or plasma sodium measurement (moles/volume) 138 136 - 145 08/03/2018 [facility] Serum or plasma potassium measurement (moles/volume) 4.1 3.5 - 5.1 08/03/2018 [facility] Serum or plasma chloride measurement (moles/volume) 103 98 - 107 08/03/2018 [facility] Serum or plasma carbon dioxide, total measurement (moles/volume) 25 22 - 29 08/03/2018 [facility] Serum or plasma anion gap 14.1 8 - 16 08/03/2018 [facility] Serum or plasma urea nitrogen measurement (mass/volume) 28 7 - 26 08/03/2018 [facility] Serum or plasma creatinine measurement (mass/volume) 0.84 0.57 - 1.11 08/03/2018 [facility] Serum or plasma urea nitrogen/creatinine mass ratio 33 6 - 25 08/03/2018 [facility] Estimated glomerular filtration rate (GFR) determination > 60 60 08/03/2018 [facility] Glucose measurement 100 74 - 118 08/03/2018 [facility] Serum or plasma calcium measurement (mass/volume) 9.4 8.4 - 10.2 08/03/2018 [facility] Serum or plasma total bilirubin measurement (mass/volume) 0.5 0.2 - 1.2 08/03/2018 [facility] Aspartate Amino Transf (AST/SGOT) 19 5 - 34 08/03/2018 [facility] Serum or plasma alanine aminotransferase measurement (enzymatic activity/volume) 23 0 - 55 08/03/2018 [facility] Serum or plasma protein measurement (mass/volume) 6.9 6.5 - 8.1 08/03/2018 [facility] Serum or plasma albumin measurement (mass/volume) 3.2 3.5 - 5.0 08/03/2018 [facility] Plasma globulin measurement (mass/volume) 3.7 2.3 - 3.5 08/03/2018 [facility] Serum or plasma albumin/globulin mass ratio 0.9 0.8 - 2.0 08/03/2018 [facility] Serum or plasma alkaline phosphatase measurement (enzymatic activity/volume) 111 40 - 150 08/03/2018 [facility] Pathology Reports No Data Provided for This [...] DC Date Status Source Departed Emergency Room [id number] LEONOR AMARO MD 08/03/2018 08/03/2018 [facility] Discharged Inpatient (obs) [id number] JAILENE DC MD 11/20/2018 11/22/2018 [facility] Procedures Procedure Code Date Perfomer Comments Source Computed tomography of abdomen and pelvis with contrast [id number] 08/03/[address] [facility] Assessment and Plan No Data Provided for This Section Plan of Care Plan of Care Date Source Discharge Date 11/22/18 7:00pm Disposition HOME, SELF-CARE Instructions/Education Provided Diabetes and Diet Prescriptions See Medication Section Referrals SHAWANDA SZYMANSKI DO (Cardiology) Order Date: 1 Week Entered Date: 11/22/2018 6:26pm Address: [address] [place] [address] [address] [place] [address] Additional Instructions/Education Follow up with Dr. Szymanski in 1 week 11/22/2018 [facility] Discharge Date 08/03/18 10:20pm Disposition HOME, SELF-CARE Condition at Discharge Stable Instructions/Education Provided Abdominal Pain - Adult Diarrhea - Adult Urinary Tract Infection - Women Prescriptions See Medication Section Referrals JOSÉ MANUEL SZYMANSKI DO Address: [address] [place] [id number] LIA DC MD Order Date: Call for an appointment Address: [address] [place] [address] [address] [place] [address] Additional Instructions/Education Call for follow up appointment [...] oral secretions or any new concerns. 08/03/2018 [facility] Social History Social History Date Source Social [...] Start Date Stop Date Former smoker 11/22/2018 [facility] Family History No Data Provided for This Section Advance Directives Order Name Results Value Date Source Advance Directives Advance Directives Directive Response Recorded Date/Time Does the patient have an advance directive? No 11/20/18 8:00pm If yes, is advance directive on file with [facility]? No 11/20/18 8:00pm If not on file with [facility] will patient provide a copy? No 11/20/18 8:00pm Do you have a Directive to Physician? No 11/20/18 12:31pm Do you have a Medical Power of Sharepoint Trainer? No 11/20/18 12:31pm Do you have an [...] rights and responsibilities? Yes 11/20/18 12:31pm 11/22/2018 [facility] Advance Directives Advance Directives Directive Response Recorded Date/Time Does the patient have an advance directive? No 03/29/16 12:21am If yes, is advance directive on file with [facility]? No 03/29/16 12:21am If not on file with [facility] will patient provide a copy? No 03/29/16 12:21am Do you have a Directive to Physician? No 08/03/18 3:43pm Do you have a Medical Power of Sharepoint Trainer? No 08/03/18 3:43pm Do you have an [...] rights and responsibilities? Yes 08/03/18 3:43pm 08/03/2018 [facility] Functional Status No Data Provided for This Section
[2019-04-28 22:05] LABS: INR 1.09; PROTHROMBIN TIME 14.6 seconds (11.9-14.5)
[2019-04-28 22:28] VITALS: BP 130/69
--- NOTE | 2019-04-28 22:28 | NUR ---
RECEIVED PT BY WHEELCHAIR TO ROOM 100. PT IS AAOX3, RR EVEN AND NON-LABORED, ON ROOM AIR. NO S/SX OF DISTRESS NOTED. PT AMBULATED TO HOSPITAL BED. LEFT PT LAYING SEMI FOWLERS IN BED, BED IN LOW LOCKED POSITION, SIDE RAILS UPX2, CALL LIGHT AND PHONE WITHIN REACH.
[2019-04-28] MEDS ORDERED: MIRALAX17 GM PO (23:09)
[2019-04-28 23:11] VITALS: BP 130/62
[2019-04-28 23:24] VITALS: BP 130/62
[2019-04-29] VITALS (7 sets, daily range): BP systolic 98–148; BP diastolic 46–66
[2019-04-29] MEDS ORDERED: ACETAMINOPHEN 325 MG TAB PO NR (00:30)
[2019-04-29] MEDS ORDERED: FAMOTIDINE 20 MG/2 ML VIAL IV NR (00:30)
[2019-04-29] MEDS ORDERED: DEXAMETHASONE SOD PHOS 10 MG/1 ML VIAL IV NR (00:30)
[2019-04-29 01:27] LABS: CREATINE KINASE MB 1.8 ng/mL (0-5.0)
[2019-04-29 01:39] LABS: FERRITIN 3.74 ng/mL (4.63-204.00)
[2019-04-29 02:39] LABS: FOLATE > 20.0 ng/mL (7.0-15.4)
--- NOTE | 2019-04-29 04:44 | NUR ---
PT REQUESTING PAIN MEDICATION FOR GENERALIZED PAIN FROM [facility]. NO PAIN MEDICATION AVAILABLE. PAGE PLACED FOR MD Tash DC.
[2019-04-29] MEDS: HYDROCODONE/APAP 7.5MG-325MG 1 EA TAB PO PRN (05:08)
--- NOTE | 2019-04-29 07:00 | NUR ---
PT RESTING IN BED COMFORTABLY AA0X3 PT IS IN NO S.S OF DISTRESS, DENIES PAIN IV TO THE LEFT WRIST 20 SL PATENT AND DRY PT IS ON TELE RUNNING SR. WILL CONTINUE TO MONITOR PT CLOSELY SIDE RAILSX2, BED WHEELS LOCKED, CALL LIGHT IS WITHIN EASY REACH, INSTRUCTED TO CALL FOR ASSISTANCE IF NEEDED
[2019-04-29] MEDS ORDERED: SODIUM CHLORIDE 0.9% 250ML 250 ML ONE (09:59)
[2019-04-29 10:16] LABS: CREATINE KINASE MB 1.1 ng/mL (0-5.0)
--- NOTE | 2019-04-29 10:20 | NUR ---
STARTED 1ST UNIT OF BLOOD . VERIFIED BLOOD WITH CHON OAKES AT BEDSIDE. WILL MONITOR PT CLOSELY
[2019-04-29] MEDS ORDERED: BACLOFEN 10 MG TAB PO PRN (11:15)
[2019-04-29] MEDS: CHOLECALCIFEROL 1,000 UNIT TAB PO SCH (12:42)
[2019-04-29] MEDS: DULOXETINE HCL 30 MG DELAYED RELEASE PO SCH (12:42)
[2019-04-29] MEDS: PANTOPRAZOLE SOD 40 MG TABEC PO SCH (12:42)
[2019-04-29 12:48] LABS: FREE THYROXINE INDEX 2.5232 (1.4-3.8); THYROID STIMULATING HORMONE 3.16 uIU/mL (0.350-4.940)
--- NOTE | 2019-04-29 15:10 | NUR ---
2ND UNIT OF BLOOD STARTED VERIFIED WITH NURSE ES AT BEDSIDE
[2019-04-29] MEDS: XULTOPHY SC SCH (16:40)
[2019-04-29] MEDS: GABAPENTIN 300 MG CAP PO SCH ×2 (17:48→21:20)
--- NOTE | 2019-04-29 19:10 | NUR ---
BED SIDE SHIFT REPORT TAKEN FROM MORNING MAYELIN IN THE BED.STABLE CONDITION.
[2019-04-29 19:45] LABS: BASOPHILS % 0.2 % (0.0-1.0); HEMATOCRIT 28.3 % (34.2-44.1); HEMOGLOBIN 8.4 g/dL (12.0-16.0); LYMPHOCYTES # (AUTO) 0.5 (1.0-3.2); LYMPHOCYTES % 8.4 % (18.0-39.1); MEAN CORPUSCULAR HEMOGLOBIN 20.7 pg (28-32); MEAN CORPUSCULAR HGB CONC 29.7 g/dL (31-35); MEAN CORPUSCULAR VOLUME 69.9 fL (81-99); MONOCYTES # (AUTO) 0.1 (0.2-0.8); NEUTROPHILS # (AUTO) 5.2 (2.1-6.9); NEUTROPHILS % 86.9 % (38.7-80.0); PLATELET COUNT 259 x10e3/uL (140-360); RED BLOOD COUNT 4.05 x10e6/uL (3.6-5.1)
[2019-04-29] MEDS ORDERED: MAGNESIUM HYDROXIDE 30 ML UDC PO NR (20:45)
--- NOTE | 2019-04-29 20:45 | NUR ---
LAB REPORT NOTIFIED TO .
[2019-04-29 21:02] LABS: LYMPHOCYTES % (MANUAL) 8 % (19-48); METAMYELOCYTES % (MANUAL) 1 % (0-0); MONOCYTES % (MANUAL) 1 % (3.4-9.0); MYELOCYTES % (MANUAL) 1 % (0-0); NEUTROPHILS % (MANUAL) 89 % (40-74); NUCLEATED RED BLOOD CELLS 1
[2019-04-29 21:03] LABS: ANISOCYTOSIS MODERATE; HYPOCHROMASIA MODERATE; PLATELET ESTIMATE ADEQUATE; PLATELET MORPHOLOGY COMMENT FEW LARGE; POIKILOCYTOSIS SLIGHT; RBC MORPHOLOGY COMMENT NORMAL
[2019-04-29] MEDS: POLYETHYLENE GLYCOL 3350 17 GM PACK PO SCH (21:20)
[2019-04-29] MEDS: OXYBUTYNIN CHLORIDE XL 5 MG TAB PO SCH (21:30)
[2019-04-30] VITALS (8 sets, daily range): BP systolic 113–159; BP diastolic 53–67
--- NOTE | 2019-04-30 00:52 | NUR ---
WAS ROUNDS THE PATIENT .RECEIVED NEW ORDERS.ON.CLEAR LIQUID DIET.NPO AFTER 7AM.
[2019-04-30] MEDS ORDERED: BISACODYL 5 MG TAB EC PO ONE ×6 (01:00→18:30)
[2019-04-30] MEDS ORDERED: IRON SUCROSE 100 MG in SODIUM CHLORIDE 0.9% 100 ML 100 ML IV SCH (02:00)
[2019-04-30] MEDS ORDERED: CYANOCOBALAMIN INJ 1,000 MCG/ML VIAL IM ONE (02:00)
--- NOTE | 2019-04-30 03:54 | NUR ---
No bowel movement noted.
[2019-04-30] MEDS ORDERED: CITRATE OF MAGNESIA 300ML BOTTLE PO ONE ×3 (05:00→22:00)
[2019-04-30 05:22] LABS: BASOPHILS % 0.1 % (0.0-1.0); EOSINOPHILS % 0.3 % (0.0-6.0); HEMATOCRIT 26.6 % (34.2-44.1); LYMPHOCYTES # (AUTO) 1.2 (1.0-3.2); LYMPHOCYTES % 14.6 % (18.0-39.1); MEAN CORPUSCULAR HEMOGLOBIN 20.7 pg (28-32); MEAN CORPUSCULAR HGB CONC 30.1 g/dL (31-35); MEAN CORPUSCULAR VOLUME 68.9 fL (81-99); MONOCYTES % 13.1 % (4.4-11.3); NEUTROPHILS # (AUTO) 5.6 (2.1-6.9); NEUTROPHILS % 71.1 % (38.7-80.0); PLATELET COUNT 248 x10e3/uL (140-360); RED BLOOD COUNT 3.86 x10e6/uL (3.6-5.1)
[2019-04-30] MEDS: LEVOTHYROXINE SODIUM 50 MCG TAB PO SCH (05:31)
--- NOTE | 2019-04-30 06:00 | NUR ---
Bowel preparation started.has no bowel movement .
--- NOTE | 2019-04-30 06:56 | NUR ---
Bed side shift report given to the oncoming rn.stable condition.
[2019-04-30 06:57] LABS: LYMPHOCYTES % (MANUAL) 12 % (19-48); MONOCYTES % (MANUAL) 13 % (3.4-9.0); NEUTROPHILS % (MANUAL) 75 % (40-74); PLATELET ESTIMATE ADEQUATE; RBC MORPHOLOGY COMMENT NORMAL
--- NOTE | 2019-04-30 07:00 | NUR ---
PT RESTING IN BED COMFORTABLY AA0X3 PT IS IN NO S.S OF DISTRESS, DENIES PAIN IV TO THE LEFT FA 20 SL PATENT AND DRY PT IS ON TELE RUNNING SR. NPO STATUS FOR SCOPE TODAY WILL CONTINUE TO MONITOR PT CLOSELY SIDE RAILSX2, BED WHEELS LOCKED, CALL LIGHT IS WITHIN EASY REACH, INSTRUCTED TO CALL FOR ASSISTANCE IF NEEDED
[2019-04-30] MEDS: PANTOPRAZOLE SOD 40 MG TABEC PO SCH (07:30)
[2019-04-30] MEDS: GABAPENTIN 300 MG CAP PO SCH ×3 (07:55→21:50)
[2019-04-30] MEDS: FOLIC ACID 1 MG TAB PO SCH (07:55)
[2019-04-30] MEDS: DULOXETINE HCL 30 MG DELAYED RELEASE PO SCH (07:55)
[2019-04-30] MEDS: CHOLECALCIFEROL 1,000 UNIT TAB PO SCH (07:56)
[2019-04-30] MEDS: PYRIDOXINE HCL 50 MG TAB PO SCH (07:56)
[2019-04-30] MEDS: IRON SUCROSE 100 MG in SODIUM CHLORIDE 0.9% 100 ML 100 ML IV SCH (08:51)
[2019-04-30] MEDS: METOPROLOL SUCCINATE 25 MG TAB XL PO SCH (09:00)
[2019-04-30] MEDS ORDERED: FOLIC ACID 1 MG TAB PO SCH (09:00)
[2019-04-30] MEDS ORDERED: LEVOTHYROXINE SODIUM 50 MCG TAB PO SCH (09:00)
[2019-04-30] MEDS: CYANOCOBALAMIN INJ 1,000 MCG/ML VIAL IM SCH (11:27)
--- NOTE | 2019-04-30 19:10 | NUR ---
Report taken from morning [place].Patient is lyeing in the bed.stable condition.
[2019-04-30] MEDS ORDERED: ATORVASTATIN 40 MG TAB PO PRN (21:00)
[2019-04-30] MEDS: POLYETHYLENE GLYCOL 3350 17 GM PACK PO SCH (21:50)
[2019-04-30] MEDS: OXYBUTYNIN CHLORIDE XL 5 MG TAB PO SCH (21:50)
[2019-05-01] MEDS ORDERED: CITRATE OF MAGNESIA 300ML BOTTLE PO ONE
[2019-05-01 00:18] VITALS: BP 116/56
--- NOTE | 2019-05-01 01:00 | NUR ---
HAD MULTIPLE TIMES OF BOWEL MOVEMENT.BUT NOT CLEARED.
[2019-05-01 04:00] VITALS: BP 121/53
--- NOTE | 2019-05-01 04:24 | NUR ---
ORDERED TO KEEP PATIENT NPO AFTER 8 AM TODAY.
[2019-05-01] MEDS ORDERED: BISACODYL 5 MG TAB EC PO ONE (05:00)
[2019-05-01] MEDS: LEVOTHYROXINE SODIUM 50 MCG TAB PO SCH (05:03)
[2019-05-01 06:26] LABS: BASOPHILS % 0.4 % (0.0-1.0); EOSINOPHILS # (AUTO) 0.3 (0.0-0.4); EOSINOPHILS % 2.7 % (0.0-6.0); HEMATOCRIT 33.3 % (34.2-44.1); HEMOGLOBIN 9.4 g/dL (12.0-16.0); LYMPHOCYTES # (AUTO) 1.5 (1.0-3.2); LYMPHOCYTES % 14.7 % (18.0-39.1); MEAN CORPUSCULAR HEMOGLOBIN 20.1 pg (28-32); MEAN CORPUSCULAR HGB CONC 28.2 g/dL (31-35); MEAN CORPUSCULAR VOLUME 71.2 fL (81-99); MONOCYTES % 10.1 % (4.4-11.3); NEUTROPHILS # (AUTO) 7.3 (2.1-6.9); NEUTROPHILS % 71.4 % (38.7-80.0); PLATELET COUNT 302 x10e3/uL (140-360); RED BLOOD COUNT 4.68 x10e6/uL (3.6-5.1); RED CELL DISTRIBUTION WIDTH 23.6 % (11.7-14.4)
--- NOTE | 2019-05-01 06:50 | NUR ---
Bed side shift report given to the oncoming Rn.stable condition.
[2019-05-01 06:56] LABS: EOSINOPHILS % (MANUAL) 2 % (0-7); LYMPHOCYTES % (MANUAL) 13 % (19-48); MONOCYTES % (MANUAL) 9 % (3.4-9.0); NEUTROPHILS % (MANUAL) 76 % (40-74); PLATELET ESTIMATE ADEQUATE; RBC MORPHOLOGY COMMENT NORMAL
--- NOTE | 2019-05-01 07:00 | NUR ---
Received patient lying in bed with eyes open. Respiration even and unlabored without SOB. Call light in reach.
[2019-05-01] MEDS: PANTOPRAZOLE SOD 40 MG TABEC PO SCH (07:30)
[2019-05-01 07:55] VITALS: BP 121/56
[2019-05-01] MEDS: DULOXETINE HCL 30 MG DELAYED RELEASE PO SCH (08:22)
[2019-05-01] MEDS: GABAPENTIN 300 MG CAP PO SCH ×3 (08:22→22:09)
[2019-05-01] MEDS: FOLIC ACID 1 MG TAB PO SCH (08:22)
[2019-05-01] MEDS: METOPROLOL SUCCINATE 25 MG TAB XL PO SCH (08:22)
[2019-05-01] MEDS: PYRIDOXINE HCL 50 MG TAB PO SCH (08:23)
[2019-05-01] MEDS: CHOLECALCIFEROL 1,000 UNIT TAB PO SCH (08:23)
[2019-05-01] MEDS: IRON SUCROSE 100 MG in SODIUM CHLORIDE 0.9% 100 ML 100 ML IV SCH (08:45)
[2019-05-01] MEDS: CYANOCOBALAMIN INJ 1,000 MCG/ML VIAL IM SCH (08:45)
[2019-05-01] MEDS: XULTOPHY SC SCH (09:00)
[2019-05-01 09:17] VITALS: BP 121/56
[2019-05-01 12:00] VITALS: BP 134/60
[2019-05-01 16:37] VITALS: BP 142/64
[2019-05-01] MEDS ORDERED: PROPOFOL IV EMULSION 10 MG/ML 50 ML VIAL ONE (17:33)
[2019-05-01] MEDS ORDERED: HYOSCYAMINE SULFATE 0.5 MG/ML INJ ONE (17:33)
[2019-05-01] MEDS ORDERED: KETAMINE HCL INJ 50 MG/ML 10 ML VIAL ONE (17:49)
[2019-05-01] MEDS ORDERED: FENTANYL CITRATE/PF 100MCG/2 ML INJ ONE (17:49)
[2019-05-01] MEDS ORDERED: MIDAZOLAM HCL 2 MG/2 ML VIAL ONE (17:49)
--- NOTE | 2019-05-01 17:50 | NUR ---
Patient is transported via stretcher for scheduled EGD. Respiration even and unlabored without SOB.
[2019-05-01] MEDS: POLYETHYLENE GLYCOL 3350 17 GM PACK PO SCH (21:00)
[2019-05-01] MEDS: OXYBUTYNIN CHLORIDE XL 5 MG TAB PO SCH (22:09)
[2019-05-01] MEDS: HYDROCODONE/APAP 7.5MG-325MG 1 EA TAB PO PRN (22:09)
[2019-05-02] VITALS (7 sets, daily range): BP systolic 113–184; BP diastolic 49–77
--- NOTE | 2019-05-02 04:11 | Operative Report ---
DATE OF PROCEDURE: 05/01/2019 SURGEON: Palmer Richards MD PROCEDURE: EGD with biopsies and colonoscopy with polypectomy. REFERRING PHYSICIAN: Campbell Szymanski DO. INDICATIONS FOR EGD: Iron deficiency anemia. INDICATIONS FOR COLONOSCOPY: Iron deficiency anemia. MEDICATIONS: The patient was done under MAC, please see anesthesiologist's note. PROCEDURE IN DETAIL #1: With the patient in left lateral decubitus position, a flexible fiberoptic Olympus gastroscope was introduced into the esophagus under direct visualization without any difficulty. There was some patchy erythema noted in distal esophagus. The scope was then advanced with ease into the stomach and mucosa overlying the antrum and the body revealed some diffuse erythema and low-grade to moderate edema and biopsies were obtained and sent to stain for H pylori. Pylorus was of normal contour and shape, was intubated with ease and the scope was advanced all the way to the second portion of the duodenum. Generous fold was noted around ? ampulla and that was biopsied. The duodenal bulb appeared to be within normal limits. The scope was then withdrawn back into the stomach and retroflexed. Mucosa overlying the fundus and cardia appeared to be within normal limits. The scope was then straightened out, it was subsequently withdrawn. The patient tolerated the procedure well. IMPRESSION: 1. Distal esophagitis, mild. 2. Gastritis, biopsied. Biopsies sent to stain for H pylori. 3. Prominent fold, periampullary area, biopsied. PLAN: Follow up histology. Initiate Protonix 40 mg one p.o. q.a.m. a.c. PROCEDURE IN DETAIL #2: The patient was then turned around. After adequate lubrication of the anal canal, the flexible fiberoptic Olympus colonoscope was inserted into the rectum with ease and advanced all the way to the cecum. Mucosa overlying the cecum appeared to be within normal limits. One polyp was snared. One polyp was hot biopsied from the ascending colon. One polyp was snared from the transverse colon. One polyp was hot biopsied from the descending colon. One polyp was hot biopsied and another polyp was snared and site was hemoclipped x2 in the sigmoid colon. The rectum appeared to be within normal limits. The scope was then retroflexed into the distal rectum and small internal hemorrhoids were noted, none of which was actively bleeding. The scope was then straightened out, it was subsequently withdrawn. The patient tolerated the procedure well. IMPRESSION: 1. Ascending colon polyps x2, one snared and one hot biopsied. 2. Transverse colon polyp x1, snared. 3. Descending colon polyp x1, snared. 4. Descending colon polyps x2, one snared and site hemoclipped x2 and one hot biopsied. 5. Internal hemorrhoids, none actively bleeding. PLAN: Followup histology. Findings do not necessarily explain the patient's anemia. We will proceed with a small bowel series. If negative, the patient might benefit from capsule endoscopy. Palmer Richards MD [facility] [place][id number] cc: Campbell Szymanski DO
[2019-05-02] MEDS: LEVOTHYROXINE SODIUM 50 MCG TAB PO SCH (06:30)
[2019-05-02] MEDS: CHOLECALCIFEROL 1,000 UNIT TAB PO SCH (08:48)
[2019-05-02] MEDS: GABAPENTIN 300 MG CAP PO SCH ×3 (08:48→21:17)
[2019-05-02] MEDS: CYANOCOBALAMIN INJ 1,000 MCG/ML VIAL IM SCH (08:48)
[2019-05-02] MEDS: FOLIC ACID 1 MG TAB PO SCH (08:48)
[2019-05-02] MEDS: PANTOPRAZOLE SOD 40 MG TABEC PO SCH (08:48)
[2019-05-02] MEDS: IRON SUCROSE 100 MG in SODIUM CHLORIDE 0.9% 100 ML 100 ML IV SCH (08:48)
[2019-05-02] MEDS: XULTOPHY SC SCH (08:48)
[2019-05-02] MEDS: PYRIDOXINE HCL 50 MG TAB PO SCH (08:48)
[2019-05-02] MEDS: METOPROLOL SUCCINATE 25 MG TAB XL PO SCH (08:48)
[2019-05-02] MEDS: DULOXETINE HCL 30 MG DELAYED RELEASE PO SCH (08:48)
[2019-05-02] MEDS: OXYBUTYNIN CHLORIDE XL 5 MG TAB PO SCH (21:17)
--- NOTE | 2019-05-02 21:20 | NUR ---
PAGED DR. RICHARDSON REGARDING PATIENTS BLOOD GLUCOSE. AWAITING CALL BACK.
--- NOTE | 2019-05-02 22:38 | NUR ---
SPOKE TO DR. RICHARDSON BLOOD GLUCOSE READING 349, AND THAT THE PATIENT ADMINISTERED 40 UNITS OF HER OWN INSULIN WITHOUT INFORMING THIS NURSE. BLOOD GLUCOSE NOW READING 244. SAID OK TO CONTINUE HOME MED INSULIN.
[2019-05-02] MEDS: POLYETHYLENE GLYCOL 3350 17 GM PACK PO SCH (23:41)
[2019-05-03] VITALS: BP 156/58
[2019-05-03] MEDS ORDERED: XULTOPHY SQ (01:19)
[2019-05-03 04:00] VITALS: BP 169/72
[2019-05-03 04:45] LABS: BASOPHILS % 0.5 % (0.0-1.0); EOSINOPHILS # (AUTO) 0.3 (0.0-0.4); EOSINOPHILS % 3.2 % (0.0-6.0); HEMATOCRIT 31.7 % (34.2-44.1); HEMOGLOBIN 9.2 g/dL (12.0-16.0); LYMPHOCYTES # (AUTO) 1.5 (1.0-3.2); LYMPHOCYTES % 17.2 % (18.0-39.1); MEAN CORPUSCULAR HEMOGLOBIN 20.4 pg (28-32); MEAN CORPUSCULAR VOLUME 70.4 fL (81-99); MONOCYTES # (AUTO) 0.9 (0.2-0.8); MONOCYTES % 10.8 % (4.4-11.3); NEUTROPHILS # (AUTO) 5.9 (2.1-6.9); PLATELET COUNT 255 x10e3/uL (140-360); RED CELL DISTRIBUTION WIDTH 24.4 % (11.7-14.4)
[2019-05-03 05:18] LABS: ALANINE AMINOTRANSFERASE 19 IU/L (0-55); ALBUMIN 3.2 g/dL (3.5-5.0); ALBUMIN/GLOBULIN RATIO 1.1 (0.8-2.0); ALKALINE PHOSPHATASE 113 IU/L (40-150); ANION GAP 11.5 mmol/L (8-16); BLOOD UREA NITROGEN 11 mg/dL (7-26); BUN/CREATININE RATIO 13 (6-25); CALCIUM 9.4 mg/dL (8.4-10.2); CARBON DIOXIDE 28 mmol/L (22-29); CHLORIDE 101 mmol/L (98-107); CREATININE, SERUM 0.85 mg/dL (0.57-1.11); EST GLOMERULAR FILTRATION RATE > 60 ML/MIN (60-); GLUCOSE 146 mg/dL (74-118); POTASSIUM 3.5 mmol/L (3.5-5.1); SODIUM 137 mmol/L (136-145)
[2019-05-03] MEDS: LEVOTHYROXINE SODIUM 50 MCG TAB PO SCH (06:27)
[2019-05-03 08:33] VITALS: BP 185/82
[2019-05-03] MEDS ORDERED: LIRAGLUTIDE SQ SCH (09:00)
[2019-05-03] MEDS ORDERED: INSULIN DEGLUDEC SQ SCH (09:00)
[2019-05-03 09:15] VITALS: BP 185/82
[2019-05-03] MEDS: DULOXETINE HCL 30 MG DELAYED RELEASE PO SCH (09:15)
[2019-05-03] MEDS: CYANOCOBALAMIN INJ 1,000 MCG/ML VIAL IM SCH (09:15)
[2019-05-03] MEDS: IRON SUCROSE 100 MG in SODIUM CHLORIDE 0.9% 100 ML 100 ML IV SCH (09:15)
[2019-05-03] MEDS: FOLIC ACID 1 MG TAB PO SCH (09:15)
[2019-05-03] MEDS: GABAPENTIN 300 MG CAP PO SCH (09:15)
[2019-05-03] MEDS: PANTOPRAZOLE SOD 40 MG TABEC PO SCH (09:15)
[2019-05-03] MEDS: PYRIDOXINE HCL 50 MG TAB PO SCH (09:16)
[2019-05-03] MEDS: METOPROLOL SUCCINATE 25 MG TAB XL PO SCH (09:16)
[2019-05-03] MEDS: CHOLECALCIFEROL 1,000 UNIT TAB PO SCH (09:16)
[2019-05-03 11:15] VITALS: BP 147/60
[2019-05-03] MEDS ORDERED: POTASSIUM CHLORIDE 10MEQ EA PO ONE (13:00)
--- NOTE | 2019-05-03 14:07 | NUR ---
Right upper arm IV discontinued. No signs of infiltration noted. 2x2 gauze and tape placed. Taken via wheelchair to personal car by PCT. Accompanied by family members.AAOX4 to time, person, place, situation. Respirations even and unlabored. Respirations even and unlabored. Discharge instructions, rx, and all personal belongings taken with patient.
--- NOTE | 2019-05-03 14:23 | Discharge Summary ---
ADMITTING DIAGNOSES: 1. Anemia secondary to gastrointestinal hemorrhage. 2. Progressive weakness secondary to profound microcytic anemia. 3. Type 2 diabetes. 4. Hypertensive heart disease. 5. Factor V Leiden. DISCHARGE DIAGNOSES: 1. Status post EGD. 2. Status post colonoscopy with multiple colonic polyps resected. 3. Status post blood transfusion (2 units of packed red blood cells). 4. Factor V Leiden. 5. Hypertensive heart disease. 6. Type 2 diabetes mellitus. 7. Iron-deficiency anemia secondary to gastrointestinal bleeding. HOSPITAL COURSE: This is a 78-year-old white woman who is initially admitted to [facility] with diagnosis of profound microcytic anemia secondary to gastrointestinal hemorrhage. During this hospitalization, the patient had iron studies done, which confirmed iron-deficiency anemia. During this hospitalization, the patient was found to have serum iron of 11 and TIBC of 556 as well as percent iron saturation of 2. These numbers are all consistent with iron-deficiency anemia. On admission, the patient's hemoglobin was 6.3 g/dL. During this hospitalization, she was transfused 2 units of packed red blood cells. On day of discharge, hemoglobin was 9.2 g/dL. During this hospital stay, the patient's Xarelto was held because of her gastrointestinal bleeding. This woman is on Xarelto because she has Factor V Leiden. Her hospitalization was unremarkable. CONDITION ON DISCHARGE: Stable. DISCHARGE MEDICATIONS: 1. Xarelto 10 mg daily (the patient will not start medications until May 17, 2019, which is two weeks after discharge). 2. Metoprolol succinate 25 mg daily. 3. Nexium 40 mg daily. 4. [place] 10/325 one t.i.d. p.r.n. pain. 5. Oxybutynin XL 15 mg at bedtime. 6. MiraLAX 17 g daily. 7. Levothyroxine 50 mcg daily. 8. Cymbalta 60 mg daily. 9. Gabapentin 600 mg t.i.d. 10. Folic acid 1 mg daily. 11. Atorvastatin 80 mg q.h.s. 12. Baclofen 10 mg t.i.d. p.r.n. spasms. 13. Xultophy (Victoza/Tresiba) 40 units subcutaneous daily. 14. She is on vitamin B6 100 mg daily. 15. Vitamin D3 2000 units daily. 16. Polyethylene glycol 17 g daily. FOLLOWUP INSTRUCTIONS: The patient is instructed to follow up with Dr. Palmer Richards in 7 to 10 days and follow up with her primary care physician namely Dr. Campbell Szymanski in 2 weeks. MD KITTY Hensley/[place] /[id number] cc: MD Campbell Barrett, DO
[2019-05-19] MEDS ORDERED: IRON PO (14:57)
[2019-05-19] MEDS ORDERED: VITAMIN B-121000 MC1 PO (14:57)
== END 2019-05-03 14:07 | disposition home or self-care (01) | DRG 378 ==
LOC: ER 19:38 → ERHOLD 21:52 → MED/SURG 22:29
PROC: 30233N1 Transfusion of Nonautologous Red Blood Cells into Peripheral Vein, Percutaneous Approach (ICD-10-PCS; 2019-04-28)
PROC: 0DBN8ZX Excision of Sigmoid Colon, Via Natural or Artificial Opening Endoscopic, Diagnostic (ICD-10-PCS; 2019-05-01)
PROC: 0DBM8ZX Excision of Descending Colon, Via Natural or Artificial Opening Endoscopic, Diagnostic (ICD-10-PCS; 2019-05-01)
PROC: 0DB98ZX Excision of Duodenum, Via Natural or Artificial Opening Endoscopic, Diagnostic (ICD-10-PCS; principal; 2019-05-01 19:26)
PROC: 0DB78ZX Excision of Stomach, Pylorus, Via Natural or Artificial Opening Endoscopic, Diagnostic (ICD-10-PCS; 2019-05-01 19:26)
PROC: 0DBK8ZX Excision of Ascending Colon, Via Natural or Artificial Opening Endoscopic, Diagnostic (ICD-10-PCS; 2019-05-01 19:26)
PROC: 0DBL8ZX Excision of Transverse Colon, Via Natural or Artificial Opening Endoscopic, Diagnostic (ICD-10-PCS; 2019-05-01 19:26)
DX: K29.71 Gastritis, unspecified, with bleeding (principal); D68.51 Activated protein C resistance; D62 Acute posthemorrhagic anemia; E11.9 Type 2 diabetes mellitus without complications; I11.9 Hypertensive heart disease without heart failure; K20.9 Esophagitis, unspecified; E03.9 Hypothyroidism, unspecified; Z86.718 Personal history of other venous thrombosis and embolism; Z79.01 Long term (current) use of anticoagulants
CPT/HCPCS: 36415; 43235; 43239; 45378; 45384; 80053; 82270; 82550; 82553; 82607; 82728; 82746; 82948; 83540; 84436; 84443; 84466; 84479; 84484; 85025; 85045; 85610; 86850; 86870; 86880; 86900; 86905; 86920; 86922; 88305; 88312; 99001; 99284; J1100; J1200; J1756; J1940; J1980; J2250; J3010; J3420; J7050; P9016

== ENCOUNTER 2019-05-13 15:31 | Emergency (ER) | payer MEDICARE ==
[~2019-05-13] VITALS: Ht 167.6 cm; Wt 108.9 kg
--- OUTSIDE RECORDS SUMMARY | 2019-05-13 15:34 | XMS REPORT | Continuity of Care Document ---
Author Author [employer] Address Unknown Phone Unavailable Care Team Providers Care President And Cmo Name Role Phone [facility] [employer] Unavailable Unavailable Problems Problem Status Onset Date Classification Date Reported Comments Source Hypochloremia Active 03/28/2016 Problem 11/23/2018 [facility] Hyponatremia Active 03/28/2016 Problem 11/23/2018 [facility] Urinary tract infection Active 03/28/2016 Problem 11/23/2018 [facility] Concussion Active Problem 11/23/2018 [facility] Contusion Active Problem 11/23/2018 [facility] 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 [facility] Cardiac arrhythmia Active Problem 11/23/2018 [facility] Shortness of breath Active Problem 11/23/2018 [facility] Medications Medication Details Route Status Patient Instructions Ordering Provider Order Date Source Metformin Hcl (Glucophage) 1,000 Mg Tablet, 1 Tab Oral Twice A Day Active 11/21/2018 [facility] Ciprofloxacin Hcl (Cipro) 250 Mg Tablet, 250 Mg Oral Twice A Day Active 11/20/2018 [facility] Cyclosporine (Restasis) 1 Each Droperette, Each Eye Twice A Day Active 11/20/2018 [facility] Liraglutide (Victoza 2-Ethan) 0.6 Mg/0.1 Ml Pen.injctr, 1.8 Mg Sub-Q Daily Active 11/20/2018 [facility] Ramipril 10 Mg Capsule, 1 Tab Oral Twice A Day Active 11/20/2018 [facility] Amlodipine Besylate 5 Mg Tablet, 1 Tab Oral Daily Active 03/29/2016 [facility] Warfarin Sodium 5 Mg Tablet, 1 Tab Oral 5 Days/Week Active 12/21/2014 [facility] Tramadol Hcl 50 Mg Tablet, 1 Tab Oral Daily Active 02/04/2014 [facility] Atorvastatin Calcium (Lipitor) 40 Mg Tablet Daily Active [facility] Cholecalciferol (Vitamin D3) (Vitamin D3) 5,000 Unit Capsule Daily Active [facility] Ciprofloxacin Hcl (Cipro) 250 Mg Tablet Twice A Day Active [facility] Cyclosporine (Restasis) 1 Each Droperette Twice A Day Active [facility] Duloxetine Hcl (Cymbalta) 60 Mg Capsule. Daily Active [facility] Esomeprazole Mag Trihydrate (Nexium) 40 Mg Capsule. Daily Active [facility] Ferrous Sulfate (Iron Supplement) 325 Mg Tablet Twice A Day Active [facility] Folic Acid 1 Mg Tablet Daily Active [facility] Gabapentin 600 Mg Tablet Three Times A Day Active [facility] Hydrocodone Bit/Acetaminophen (Hydrocet 5-500 Capsule) 1 Each Capsule As Needed Active [facility] Insulin Glargine,Hum.rec.anlog (Lantus) 100 Unit/1 Ml Vial Daily Active [facility] Levothyroxine Sodium (Synthroid) 50 Mcg Tablet Daily Active [facility] Liraglutide (Victoza 2-Ethan) 0.6 Mg/0.1 Ml Pen.injctr Daily Active [facility] Metformin Hcl (Glucophage) 1,000 Mg Tablet Twice A Day Active [facility] Oxybutynin Chloride (Ditropan Xl) 5 Mg Tab.er.24 Daily Active [facility] Ramipril 10 Mg Capsule Twice A Day Active [facility] Repaglinide (Prandin) 1 Mg Tablet 3AM/4NOON/2HS Active [facility] Rivaroxaban (Xarelto) 10 Mg Tablet Daily Active [facility] Vitamin B-6 Daily Active [facility] Polyethylene Glycol 3350 (Miralax) 17 Gm Powd.pack Daily Active [facility] Xultophy Daily Active [facility] Allergies, Adverse Reactions, Alerts No Known Medication Allergies Immunizations No Data Provided for This Section Results Order Name Results Value Reference Range Date Interpretation Comments Source Capillary blood glucose measurement by glucometer (mass/volume) 120 70 - 120 11/22/2018 [facility] Serum or plasma creatine kinase measurement (enzymatic activity/volume) 48 29 - 168 11/21/2018 [facility] Serum or plasma creatine kinase MB measurement (mass/volume) 1.50 0 - 5.0 11/21/2018 [facility] Troponin I measurement by highly sensitive enzyme immunoassay 0.017 0 - 0.300 11/21/2018 [facility] Serum or plasma sodium measurement (moles/volume) 138 136 - 145 11/21/2018 [facility] Serum or plasma potassium measurement (moles/volume) 4.0 3.5 - 5.1 11/21/2018 [facility] Serum or plasma chloride measurement (moles/volume) 106 98 - 107 11/21/2018 [facility] Serum or plasma carbon dioxide, total measurement (moles/volume) 21 22 - 29 11/21/2018 [facility] Serum or plasma anion gap 15.0 8 - 16 11/21/2018 [facility] Serum or plasma urea nitrogen measurement (mass/volume) 29 7 - 26 11/21/2018 [facility] Serum or plasma creatinine measurement (mass/volume) 0.87 0.57 - 1.11 11/21/2018 [facility] Serum or plasma urea nitrogen/creatinine mass ratio 33 6 - 25 11/21/2018 [facility] Estimated glomerular filtration rate (GFR) determination > 60 60 11/21/2018 [facility] Glucose measurement 99 74 - 118 11/21/2018 [facility] Serum or plasma calcium measurement (mass/volume) 9.3 8.4 - 10.2 11/21/2018 [facility] Serum or plasma triglyceride measurement (mass/volume) 99 0 - 149 11/21/2018 [facility] Serum or plasma cholesterol measurement (mass/volume) 178 0 - 199 11/21/2018 [facility] Serum or plasma cholesterol in LDL measurement (mass/volume) 105 60 - 130 11/21/2018 [facility] Serum or plasma cholesterol in HDL measurement (mass/volume) 53 40 - 60 11/21/2018 [facility] Serum or plasma total cholesterol/cholesterol in HDL mass ratio 3.4 3.0 - 3.6 11/21/2018 [facility] Urine color determination YELLOW YELLOW 11/20/2018 [facility] Urine clarity SL CLOUDY CLEAR 11/20/2018 [facility] Specific gravity of Urine by Test strip 1.030 1.010 - 1.025 11/20/2018 [facility] Urine pH measurement by automated test strip 5 5 - 7 11/20/2018 [facility] Urine leukocyte esterase detection by dipstick NEGATIVE NEGATIVE 11/20/2018 [facility] Urine nitrite detection NEGATIVE NEGATIVE 11/20/2018 [facility] Urine protein measurement by test strip (mass/volume) NEGATIVE NEGATIVE 11/20/2018 [facility] Urine glucose detection NEGATIVE NEGATIVE 11/20/2018 [facility] Urine ketones detection by automated test strip NEGATIVE NEGATIVE 11/20/2018 [facility] Urine urobilinogen measurement by test strip (mass/volume) 0.2 0.2 - 1 11/20/2018 [facility] Urine total bilirubin measurement (mass/volume) NEGATIVE NEGATIVE 11/20/2018 [facility] Urine erythrocytes detection NEGATIVE NEGATIVE 11/20/2018 [facility] Automated urine sediment leukocyte count by microscopy (number/high power field) NONE 0 - 5 11/20/2018 [facility] Erythrocytes detection in urine sediment by light microscopy NONE 0 - 5 11/20/2018 [facility] Bacteria detection in urine sediment by light microscopy FEW NONE 11/20/2018 [facility] Epithelial cells detection in urine sediment by light microscopy MODERATE NONE 11/20/2018 [facility] Amorphous sediment detection in urine sediment by light microscopy FEW FEW 11/20/2018 [facility] Blood leukocytes automated count (number/volume) 6.80 4.8 - 10.8 11/20/2018 [facility] Blood erythrocytes automated count (number/volume) 5.31 3.6 - 5.1 11/20/2018 [facility] Blood hemoglobin measurement (moles/volume) 14.7 12.0 - 16.0 11/20/2018 [facility] Automated blood hematocrit (volume fraction) 44.8 34.2 - 44.1 11/20/2018 [facility] Automated erythrocyte mean corpuscular volume 84.4 81 - 99 11/20/2018 [facility] Automated erythrocyte mean corpuscular hemoglobin (mass per erythrocyte) 27.7 28 - 32 11/20/2018 [facility] Automated erythrocyte mean corpuscular hemoglobin concentration measurement (mass/volume) 32.8 31 - 35 11/20/2018 [facility] RDW BldCo-Rto 15.7 11.7 - 14.4 11/20/2018 [facility] Automated blood platelet count (count/volume) 285 140 - 360 11/20/2018 [facility] Automated blood segmented neutrophil count as percentage of total leukocytes 71.7 38.7 - 80.0 11/20/2018 [facility] Automated blood lymphocyte count as percentage ot total leukocytes 16.9 18.0 - 39.1 11/20/2018 [facility] Automated blood monocyte count as percentage of total leukocytes 8.8 4.4 - 11.3 11/20/2018 [facility] Automated blood eosinophil count as percentage of total leukocytes 1.5 0.0 - 6.0 11/20/2018 [facility] Automated blood basophil count as percentage of total leukocytes 0.7 0.0 - 1.0 11/20/2018 [facility] IM GRANULOCYTES % 0.4 0.0 - 1.0 11/20/2018 [facility] Automated blood neutrophil count 4.9 2.1 - 6.9 11/20/2018 [facility] Blood lymphocytes count (number/volume) 1.2 1.0 - 3.2 11/20/2018 [facility] Blood monocytes automated count (number/volume) 0.6 0.2 - 0.8 11/20/2018 [facility] Automated blood eosinophil count 0.1 0.0 - 0.4 11/20/2018 [facility] Automated blood basophil count (count/volume) 0.1 0.0 - 0.1 11/20/2018 [facility] Absolute Immature Granulocyte (auto 0.03 0 - 0.1 11/20/2018 [facility] Prothrombin time (PT) in platelet poor plasma by coagulation assay 16.2 11.9 - 14.5 11/20/2018 [facility] INR in Platelet poor plasma by Coagulation assay 1.24 11/20/2018 [facility] Activated partial thromboplastin time (aPTT) in platelet poor plasma bycoagulation assay 36.7 23.8 - 35.5 11/20/2018 [facility] Serum or plasma magnesium measurement (mass/volume) 2.1 1.3 - 2.1 11/20/2018 [facility] Serum or plasma total bilirubin measurement (mass/volume) 0.3 0.2 - 1.2 11/20/2018 [facility] Aspartate Amino Transf (AST/SGOT) 33 5 - 34 11/20/2018 [facility] Serum or plasma alanine aminotransferase measurement (enzymatic activity/volume) 25 0 - 55 11/20/2018 [facility] Serum or plasma protein measurement (mass/volume) 7.2 6.5 - 8.1 11/20/2018 [facility] Serum or plasma albumin measurement (mass/volume) 3.6 3.5 - 5.0 11/20/2018 [facility] Plasma globulin measurement (mass/volume) 3.6 2.3 - 3.5 11/20/2018 [facility] Serum or plasma albumin/globulin mass ratio 1.0 0.8 - 2.0 11/20/2018 [facility] Serum or plasma alkaline phosphatase measurement (enzymatic activity/volume) 95 40 - 150 11/20/2018 [facility] Free thyroxine index 2.8752 1.4 - 3.8 11/20/2018 [facility] Serum or plasma thyroxine (T4) measurement (mass/volume) 8.79 4.5 - 10.9 11/20/2018 [facility] Serum or plasma triiodothyronine resin uptake (T3RU) 32.71 22.5 - 37.0 11/20/2018 [facility] Serum or plasma thyrotropin measurement by detection limit <=0.005 miu/l (units/volume) 1.828 0.350 - 4.940 11/20/2018 [facility] Capillary blood glucose measurement by glucometer (mass/volume) 98 70 - 120 08/03/2018 [facility] Urine color determination YELLOW YELLOW 08/03/2018 [facility] Urine clarity CLOUDY CLEAR 08/03/2018 [facility] Specific gravity of Urine by Test strip 1.030 1.010 - 1.025 08/03/2018 [facility] Urine pH measurement by automated test strip 6 5 - 7 08/03/2018 [facility] Urine leukocyte esterase detection by dipstick 1+ NEGATIVE 08/03/2018 [facility] Urine nitrite detection NEGATIVE NEGATIVE 08/03/2018 [facility] Urine protein measurement by test strip (mass/volume) 1+ NEGATIVE 08/03/2018 [facility] Urine glucose detection NEGATIVE NEGATIVE 08/03/2018 [facility] Urine ketones detection by automated test strip NEGATIVE NEGATIVE 08/03/2018 [facility] Urine urobilinogen measurement by test strip (mass/volume) 0.2 0.2 - 1 08/03/2018 [facility] Urine total bilirubin measurement (mass/volume) NEGATIVE NEGATIVE 08/03/2018 [facility] Urine erythrocytes detection 3+ NEGATIVE 08/03/2018 [facility] Automated urine sediment leukocyte count by microscopy (number/high power field) 11-20 0 - 5 08/03/2018 [facility] Erythrocytes detection in urine sediment by light microscopy 11-20 0 - 5 08/03/2018 [facility] Bacteria detection in urine sediment by light microscopy MODERATE NONE 08/03/2018 [facility] Epithelial cells detection in urine sediment by light microscopy FEW NONE 08/03/2018 [facility] Blood leukocytes automated count (number/volume) 13.63 4.8 - 10.8 08/03/2018 [facility] Blood erythrocytes automated count (number/volume) 4.85 3.6 - 5.1 08/03/2018 [facility] Blood hemoglobin measurement (moles/volume) 11.8 12.0 - 16.0 08/03/2018 [facility] Automated blood hematocrit (volume fraction) 37.5 34.2 - 44.1 08/03/2018 [facility] Automated erythrocyte mean corpuscular volume 77.3 81 - 99 08/03/2018 [facility] Automated erythrocyte mean corpuscular hemoglobin (mass per erythrocyte) 24.3 28 - 32 08/03/2018 [facility] Automated erythrocyte mean corpuscular hemoglobin concentration measurement (mass/volume) 31.5 31 - 35 08/03/2018 [facility] RDW BldCo-Rto 22.4 11.7 - 14.4 08/03/2018 [facility] Automated blood platelet count (count/volume) 330 140 - 360 08/03/2018 [facility] Automated blood segmented neutrophil count as percentage of total leukocytes 84.6 38.7 - 80.0 08/03/2018 [facility] Automated blood lymphocyte count as percentage ot total leukocytes 8.4 18.0 - 39.1 08/03/2018 [facility] Automated blood monocyte count as percentage of total leukocytes 5.6 4.4 - 11.3 08/03/2018 [facility] Automated blood eosinophil count as percentage of total leukocytes 0.7 0.0 - 6.0 08/03/2018 [facility] Automated blood basophil count as percentage of total leukocytes 0.3 0.0 - 1.0 08/03/2018 [facility] IM GRANULOCYTES % 0.4 0.0 - 1.0 08/03/2018 [facility] Automated blood neutrophil count 11.5 2.1 - 6.9 08/03/2018 [facility] Blood lymphocytes count (number/volume) 1.1 1.0 - 3.2 08/03/2018 [facility] Blood monocytes automated count (number/volume) 0.8 0.2 - 0.8 08/03/2018 [facility] Automated blood eosinophil count 0.1 0.0 - 0.4 08/03/2018 [facility] Automated blood basophil count (count/volume) 0.0 0.0 - 0.1 08/03/2018 [facility] Absolute Immature Granulocyte (auto 0.06 0 - 0.1 08/03/2018 [facility] Serum or plasma sodium measurement (moles/volume) 138 136 - 145 08/03/2018 [facility] Serum or plasma potassium measurement (moles/volume) 4.1 3.5 - 5.1 08/03/2018 [facility] Serum or plasma chloride measurement (moles/volume) 103 98 - 107 08/03/2018 [facility] Serum or plasma carbon dioxide, total measurement (moles/volume) 25 22 - 29 08/03/2018 [facility] Serum or plasma anion gap 14.1 8 - 16 08/03/2018 [facility] Serum or plasma urea nitrogen measurement (mass/volume) 28 7 - 26 08/03/2018 [facility] Serum or plasma creatinine measurement (mass/volume) 0.84 0.57 - 1.11 08/03/2018 [facility] Serum or plasma urea nitrogen/creatinine mass ratio 33 6 - 25 08/03/2018 [facility] Estimated glomerular filtration rate (GFR) determination > 60 60 08/03/2018 [facility] Glucose measurement 100 74 - 118 08/03/2018 [facility] Serum or plasma calcium measurement (mass/volume) 9.4 8.4 - 10.2 08/03/2018 [facility] Serum or plasma total bilirubin measurement (mass/volume) 0.5 0.2 - 1.2 08/03/2018 [facility] Aspartate Amino Transf (AST/SGOT) 19 5 - 34 08/03/2018 [facility] Serum or plasma alanine aminotransferase measurement (enzymatic activity/volume) 23 0 - 55 08/03/2018 [facility] Serum or plasma protein measurement (mass/volume) 6.9 6.5 - 8.1 08/03/2018 [facility] Serum or plasma albumin measurement (mass/volume) 3.2 3.5 - 5.0 08/03/2018 [facility] Plasma globulin measurement (mass/volume) 3.7 2.3 - 3.5 08/03/2018 [facility] Serum or plasma albumin/globulin mass ratio 0.9 0.8 - 2.0 08/03/2018 [facility] Serum or plasma alkaline phosphatase measurement (enzymatic activity/volume) 111 40 - 150 08/03/2018 [facility] Pathology Reports No Data Provided for This [...] DC Date Status Source Departed Emergency Room [id number] LEONOR AMARO MD 08/03/2018 08/03/2018 [facility] Discharged Inpatient (obs) [id number] JAILENE DC MD 11/20/2018 11/22/2018 [facility] Procedures Procedure Code Date Perfomer Comments Source Computed tomography of abdomen and pelvis with contrast [id number] 08/03/2018 SANTY [facility] Assessment and Plan No Data Provided for This Section Plan of Care Plan of Care Date Source Discharge Date 11/22/18 7:00pm Disposition HOME, SELF-CARE Instructions/Education Provided Diabetes and Diet Prescriptions See Medication Section Referrals SHAWANDA SZYMANSKI DO (Cardiology) Order Date: 1 Week Entered Date: 11/22/2018 6:26pm Address: [address] [place] [address] [address] [place] [address] Additional Instructions/Education Follow up with Dr. Szymanski in 1 week 11/22/2018 [facility] Discharge Date 08/03/18 10:20pm Disposition HOME, SELF-CARE Condition at Discharge Stable Instructions/Education Provided Abdominal Pain - Adult Diarrhea - Adult Urinary Tract Infection - Women Prescriptions See Medication Section Referrals JOSÉ MANUEL SZYMANSKI DO Address: [address] [place] [id number] LIA DC MD Order Date: Call for an appointment Address: [address] [place] [address] [address] [place] [address] Additional Instructions/Education Call for follow up appointment [...] oral secretions or any new concerns. 08/03/2018 [facility] Social History Social History Date Source Social [...] Start Date Stop Date Former smoker 11/22/2018 [facility] Family History No Data Provided for This Section Advance Directives Order Name Results Value Date Source Advance Directives Advance Directives Directive Response Recorded Date/Time Does the patient have an advance directive? No 11/20/18 8:00pm If yes, is advance directive on file with [facility]? No 11/20/18 8:00pm If not on file with [facility] will patient provide a copy? No 11/20/18 8:00pm Do you have a Directive to Physician? No 11/20/18 12:31pm Do you have a Medical Power of Fuels Engineer? No 11/20/18 12:31pm Do you have an [...] rights and responsibilities? Yes 11/20/18 12:31pm 11/22/2018 [facility] Advance Directives Advance Directives Directive Response Recorded Date/Time Does the patient have an advance directive? No 03/29/16 12:21am If yes, is advance directive on file with [facility]? No 03/29/16 12:21am If not on file with [facility] will patient provide a copy? No 03/29/16 12:21am Do you have a Directive to Physician? No 08/03/18 3:43pm Do you have a Medical Power of Fuels Engineer? No 08/03/18 3:43pm Do you have an [...] rights and responsibilities? Yes 08/03/18 3:43pm 08/03/2018 [facility] Functional Status No Data Provided for This Section
--- OUTSIDE RECORDS SUMMARY | 2019-05-13 15:39 | XMS REPORT | Continuity of Care Document ---
Author Author [employer] Address Unknown Phone Unavailable Care Team Providers Care Kitchen Runner Name Role Phone [facility] [employer] Unavailable Unavailable Problems Problem Status Onset Date Classification Date Reported Comments Source Hypochloremia Active 03/28/2016 Problem 11/23/2018 [facility] Hyponatremia Active 03/28/2016 Problem 11/23/2018 [facility] Urinary tract infection Active 03/28/2016 Problem 11/23/2018 [facility] Concussion Active Problem 11/23/2018 [facility] Contusion Active Problem 11/23/2018 [facility] 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 [facility] Cardiac arrhythmia Active Problem 11/23/2018 [facility] Shortness of breath Active Problem 11/23/2018 [facility] Medications Medication Details Route Status Patient Instructions Ordering Provider Order Date Source Metformin Hcl (Glucophage) 1,000 Mg Tablet, 1 Tab Oral Twice A Day Active 11/21/2018 [facility] Ciprofloxacin Hcl (Cipro) 250 Mg Tablet, 250 Mg Oral Twice A Day Active 11/20/2018 [facility] Cyclosporine (Restasis) 1 Each Droperette, Each Eye Twice A Day Active 11/20/2018 [facility] Liraglutide (Victoza 2-Ethan) 0.6 Mg/0.1 Ml Pen.injctr, 1.8 Mg Sub-Q Daily Active 11/20/2018 [facility] Ramipril 10 Mg Capsule, 1 Tab Oral Twice A Day Active 11/20/2018 [facility] Amlodipine Besylate 5 Mg Tablet, 1 Tab Oral Daily Active 03/29/2016 [facility] Warfarin Sodium 5 Mg Tablet, 1 Tab Oral 5 Days/Week Active 12/21/2014 [facility] Tramadol Hcl 50 Mg Tablet, 1 Tab Oral Daily Active 02/04/2014 [facility] Atorvastatin Calcium (Lipitor) 40 Mg Tablet Daily Active [facility] Cholecalciferol (Vitamin D3) (Vitamin D3) 5,000 Unit Capsule Daily Active [facility] Ciprofloxacin Hcl (Cipro) 250 Mg Tablet Twice A Day Active [facility] Cyclosporine (Restasis) 1 Each Droperette Twice A Day Active [facility] Duloxetine Hcl (Cymbalta) 60 Mg Capsule. Daily Active [facility] Esomeprazole Mag Trihydrate (Nexium) 40 Mg Capsule. Daily Active [facility] Ferrous Sulfate (Iron Supplement) 325 Mg Tablet Twice A Day Active [facility] Folic Acid 1 Mg Tablet Daily Active [facility] Gabapentin 600 Mg Tablet Three Times A Day Active [facility] Hydrocodone Bit/Acetaminophen (Hydrocet 5-500 Capsule) 1 Each Capsule As Needed Active [facility] Insulin Glargine,Hum.rec.anlog (Lantus) 100 Unit/1 Ml Vial Daily Active [facility] Levothyroxine Sodium (Synthroid) 50 Mcg Tablet Daily Active [facility] Liraglutide (Victoza 2-Ethan) 0.6 Mg/0.1 Ml Pen.injctr Daily Active [facility] Metformin Hcl (Glucophage) 1,000 Mg Tablet Twice A Day Active [facility] Oxybutynin Chloride (Ditropan Xl) 5 Mg Tab.er.24 Daily Active [facility] Ramipril 10 Mg Capsule Twice A Day Active [facility] Repaglinide (Prandin) 1 Mg Tablet 3AM/4NOON/2HS Active [facility] Rivaroxaban (Xarelto) 10 Mg Tablet Daily Active [facility] Vitamin B-6 Daily Active [facility] Polyethylene Glycol 3350 (Miralax) 17 Gm Powd.pack Daily Active [facility] Xultophy Daily Active [facility] Allergies, Adverse Reactions, Alerts No Known Medication Allergies Immunizations No Data Provided for This Section Results Order Name Results Value Reference Range Date Interpretation Comments Source Capillary blood glucose measurement by glucometer (mass/volume) 120 70 - 120 11/22/2018 [facility] Serum or plasma creatine kinase measurement (enzymatic activity/volume) 48 29 - 168 11/21/2018 [facility] Serum or plasma creatine kinase MB measurement (mass/volume) 1.50 0 - 5.0 11/21/2018 [facility] Troponin I measurement by highly sensitive enzyme immunoassay 0.017 0 - 0.300 11/21/2018 [facility] Serum or plasma sodium measurement (moles/volume) 138 136 - 145 11/21/2018 [facility] Serum or plasma potassium measurement (moles/volume) 4.0 3.5 - 5.1 11/21/2018 [facility] Serum or plasma chloride measurement (moles/volume) 106 98 - 107 11/21/2018 [facility] Serum or plasma carbon dioxide, total measurement (moles/volume) 21 22 - 29 11/21/2018 [facility] Serum or plasma anion gap 15.0 8 - 16 11/21/2018 [facility] Serum or plasma urea nitrogen measurement (mass/volume) 29 7 - 26 11/21/2018 [facility] Serum or plasma creatinine measurement (mass/volume) 0.87 0.57 - 1.11 11/21/2018 [facility] Serum or plasma urea nitrogen/creatinine mass ratio 33 6 - 25 11/21/2018 [facility] Estimated glomerular filtration rate (GFR) determination > 60 60 11/21/2018 [facility] Glucose measurement 99 74 - 118 11/21/2018 [facility] Serum or plasma calcium measurement (mass/volume) 9.3 8.4 - 10.2 11/21/2018 [facility] Serum or plasma triglyceride measurement (mass/volume) 99 0 - 149 11/21/2018 [facility] Serum or plasma cholesterol measurement (mass/volume) 178 0 - 199 11/21/2018 [facility] Serum or plasma cholesterol in LDL measurement (mass/volume) 105 60 - 130 11/21/2018 [facility] Serum or plasma cholesterol in HDL measurement (mass/volume) 53 40 - 60 11/21/2018 [facility] Serum or plasma total cholesterol/cholesterol in HDL mass ratio 3.4 3.0 - 3.6 11/21/2018 [facility] Urine color determination YELLOW YELLOW 11/20/2018 [facility] Urine clarity SL CLOUDY CLEAR 11/20/2018 [facility] Specific gravity of Urine by Test strip 1.030 1.010 - 1.025 11/20/2018 [facility] Urine pH measurement by automated test strip 5 5 - 7 11/20/2018 [facility] Urine leukocyte esterase detection by dipstick NEGATIVE NEGATIVE 11/20/2018 [facility] Urine nitrite detection NEGATIVE NEGATIVE 11/20/2018 [facility] Urine protein measurement by test strip (mass/volume) NEGATIVE NEGATIVE 11/20/2018 [facility] Urine glucose detection NEGATIVE NEGATIVE 11/20/2018 [facility] Urine ketones detection by automated test strip NEGATIVE NEGATIVE 11/20/2018 [facility] Urine urobilinogen measurement by test strip (mass/volume) 0.2 0.2 - 1 11/20/2018 [facility] Urine total bilirubin measurement (mass/volume) NEGATIVE NEGATIVE 11/20/2018 [facility] Urine erythrocytes detection NEGATIVE NEGATIVE 11/20/2018 [facility] Automated urine sediment leukocyte count by microscopy (number/high power field) NONE 0 - 5 11/20/2018 [facility] Erythrocytes detection in urine sediment by light microscopy NONE 0 - 5 11/20/2018 [facility] Bacteria detection in urine sediment by light microscopy FEW NONE 11/20/2018 [facility] Epithelial cells detection in urine sediment by light microscopy MODERATE NONE 11/20/2018 [facility] Amorphous sediment detection in urine sediment by light microscopy FEW FEW 11/20/2018 [facility] Blood leukocytes automated count (number/volume) 6.80 4.8 - 10.8 11/20/2018 [facility] Blood erythrocytes automated count (number/volume) 5.31 3.6 - 5.1 11/20/2018 [facility] Blood hemoglobin measurement (moles/volume) 14.7 12.0 - 16.0 11/20/2018 [facility] Automated blood hematocrit (volume fraction) 44.8 34.2 - 44.1 11/20/2018 [facility] Automated erythrocyte mean corpuscular volume 84.4 81 - 99 11/20/2018 [facility] Automated erythrocyte mean corpuscular hemoglobin (mass per erythrocyte) 27.7 28 - 32 11/20/2018 [facility] Automated erythrocyte mean corpuscular hemoglobin concentration measurement (mass/volume) 32.8 31 - 35 11/20/2018 [facility] RDW BldCo-Rto 15.7 11.7 - 14.4 11/20/2018 [facility] Automated blood platelet count (count/volume) 285 140 - 360 11/20/2018 [facility] Automated blood segmented neutrophil count as percentage of total leukocytes 71.7 38.7 - 80.0 11/20/2018 [facility] Automated blood lymphocyte count as percentage ot total leukocytes 16.9 18.0 - 39.1 11/20/2018 [facility] Automated blood monocyte count as percentage of total leukocytes 8.8 4.4 - 11.3 11/20/2018 [facility] Automated blood eosinophil count as percentage of total leukocytes 1.5 0.0 - 6.0 11/20/2018 [facility] Automated blood basophil count as percentage of total leukocytes 0.7 0.0 - 1.0 11/20/2018 [facility] IM GRANULOCYTES % 0.4 0.0 - 1.0 11/20/2018 [facility] Automated blood neutrophil count 4.9 2.1 - 6.9 11/20/2018 [facility] Blood lymphocytes count (number/volume) 1.2 1.0 - 3.2 11/20/2018 [facility] Blood monocytes automated count (number/volume) 0.6 0.2 - 0.8 11/20/2018 [facility] Automated blood eosinophil count 0.1 0.0 - 0.4 11/20/2018 [facility] Automated blood basophil count (count/volume) 0.1 0.0 - 0.1 11/20/2018 [facility] Absolute Immature Granulocyte (auto 0.03 0 - 0.1 11/20/2018 [facility] Prothrombin time (PT) in platelet poor plasma by coagulation assay 16.2 11.9 - 14.5 11/20/2018 [facility] INR in Platelet poor plasma by Coagulation assay 1.24 11/20/2018 [facility] Activated partial thromboplastin time (aPTT) in platelet poor plasma bycoagulation assay 36.7 23.8 - 35.5 11/20/2018 [facility] Serum or plasma magnesium measurement (mass/volume) 2.1 1.3 - 2.1 11/20/2018 [facility] Serum or plasma total bilirubin measurement (mass/volume) 0.3 0.2 - 1.2 11/20/2018 [facility] Aspartate Amino Transf (AST/SGOT) 33 5 - 34 11/20/2018 [facility] Serum or plasma alanine aminotransferase measurement (enzymatic activity/volume) 25 0 - 55 11/20/2018 [facility] Serum or plasma protein measurement (mass/volume) 7.2 6.5 - 8.1 11/20/2018 [facility] Serum or plasma albumin measurement (mass/volume) 3.6 3.5 - 5.0 11/20/2018 [facility] Plasma globulin measurement (mass/volume) 3.6 2.3 - 3.5 11/20/2018 [facility] Serum or plasma albumin/globulin mass ratio 1.0 0.8 - 2.0 11/20/2018 [facility] Serum or plasma alkaline phosphatase measurement (enzymatic activity/volume) 95 40 - 150 11/20/2018 [facility] Free thyroxine index 2.8752 1.4 - 3.8 11/20/2018 [facility] Serum or plasma thyroxine (T4) measurement (mass/volume) 8.79 4.5 - 10.9 11/20/2018 [facility] Serum or plasma triiodothyronine resin uptake (T3RU) 32.71 22.5 - 37.0 11/20/2018 [facility] Serum or plasma thyrotropin measurement by detection limit <=0.005 miu/l (units/volume) 1.828 0.350 - 4.940 11/20/2018 [facility] Capillary blood glucose measurement by glucometer (mass/volume) 98 70 - 120 08/03/2018 [facility] Urine color determination YELLOW YELLOW 08/03/2018 [facility] Urine clarity CLOUDY CLEAR 08/03/2018 [facility] Specific gravity of Urine by Test strip 1.030 1.010 - 1.025 08/03/2018 [facility] Urine pH measurement by automated test strip 6 5 - 7 08/03/2018 [facility] Urine leukocyte esterase detection by dipstick 1+ NEGATIVE 08/03/2018 [facility] Urine nitrite detection NEGATIVE NEGATIVE 08/03/2018 [facility] Urine protein measurement by test strip (mass/volume) 1+ NEGATIVE 08/03/2018 [facility] Urine glucose detection NEGATIVE NEGATIVE 08/03/2018 [facility] Urine ketones detection by automated test strip NEGATIVE NEGATIVE 08/03/2018 [facility] Urine urobilinogen measurement by test strip (mass/volume) 0.2 0.2 - 1 08/03/2018 [facility] Urine total bilirubin measurement (mass/volume) NEGATIVE NEGATIVE 08/03/2018 [facility] Urine erythrocytes detection 3+ NEGATIVE 08/03/2018 [facility] Automated urine sediment leukocyte count by microscopy (number/high power field) 11-20 0 - 5 08/03/2018 [facility] Erythrocytes detection in urine sediment by light microscopy 11-20 0 - 5 08/03/2018 [facility] Bacteria detection in urine sediment by light microscopy MODERATE NONE 08/03/2018 [facility] Epithelial cells detection in urine sediment by light microscopy FEW NONE 08/03/2018 [facility] Blood leukocytes automated count (number/volume) 13.63 4.8 - 10.8 08/03/2018 [facility] Blood erythrocytes automated count (number/volume) 4.85 3.6 - 5.1 08/03/2018 [facility] Blood hemoglobin measurement (moles/volume) 11.8 12.0 - 16.0 08/03/2018 [facility] Automated blood hematocrit (volume fraction) 37.5 34.2 - 44.1 08/03/2018 [facility] Automated erythrocyte mean corpuscular volume 77.3 81 - 99 08/03/2018 [facility] Automated erythrocyte mean corpuscular hemoglobin (mass per erythrocyte) 24.3 28 - 32 08/03/2018 [facility] Automated erythrocyte mean corpuscular hemoglobin concentration measurement (mass/volume) 31.5 31 - 35 08/03/2018 [facility] RDW BldCo-Rto 22.4 11.7 - 14.4 08/03/2018 [facility] Automated blood platelet count (count/volume) 330 140 - 360 08/03/2018 [facility] Automated blood segmented neutrophil count as percentage of total leukocytes 84.6 38.7 - 80.0 08/03/2018 [facility] Automated blood lymphocyte count as percentage ot total leukocytes 8.4 18.0 - 39.1 08/03/2018 [facility] Automated blood monocyte count as percentage of total leukocytes 5.6 4.4 - 11.3 08/03/2018 [facility] Automated blood eosinophil count as percentage of total leukocytes 0.7 0.0 - 6.0 08/03/2018 [facility] Automated blood basophil count as percentage of total leukocytes 0.3 0.0 - 1.0 08/03/2018 [facility] IM GRANULOCYTES % 0.4 0.0 - 1.0 08/03/2018 [facility] Automated blood neutrophil count 11.5 2.1 - 6.9 08/03/2018 [facility] Blood lymphocytes count (number/volume) 1.1 1.0 - 3.2 08/03/2018 [facility] Blood monocytes automated count (number/volume) 0.8 0.2 - 0.8 08/03/2018 [facility] Automated blood eosinophil count 0.1 0.0 - 0.4 08/03/2018 [facility] Automated blood basophil count (count/volume) 0.0 0.0 - 0.1 08/03/2018 [facility] Absolute Immature Granulocyte (auto 0.06 0 - 0.1 08/03/2018 [facility] Serum or plasma sodium measurement (moles/volume) 138 136 - 145 08/03/2018 [facility] Serum or plasma potassium measurement (moles/volume) 4.1 3.5 - 5.1 08/03/2018 [facility] Serum or plasma chloride measurement (moles/volume) 103 98 - 107 08/03/2018 [facility] Serum or plasma carbon dioxide, total measurement (moles/volume) 25 22 - 29 08/03/2018 [facility] Serum or plasma anion gap 14.1 8 - 16 08/03/2018 [facility] Serum or plasma urea nitrogen measurement (mass/volume) 28 7 - 26 08/03/2018 [facility] Serum or plasma creatinine measurement (mass/volume) 0.84 0.57 - 1.11 08/03/2018 [facility] Serum or plasma urea nitrogen/creatinine mass ratio 33 6 - 25 08/03/2018 [facility] Estimated glomerular filtration rate (GFR) determination > 60 60 08/03/2018 [facility] Glucose measurement 100 74 - 118 08/03/2018 [facility] Serum or plasma calcium measurement (mass/volume) 9.4 8.4 - 10.2 08/03/2018 [facility] Serum or plasma total bilirubin measurement (mass/volume) 0.5 0.2 - 1.2 08/03/2018 [facility] Aspartate Amino Transf (AST/SGOT) 19 5 - 34 08/03/2018 [facility] Serum or plasma alanine aminotransferase measurement (enzymatic activity/volume) 23 0 - 55 08/03/2018 [facility] Serum or plasma protein measurement (mass/volume) 6.9 6.5 - 8.1 08/03/2018 [facility] Serum or plasma albumin measurement (mass/volume) 3.2 3.5 - 5.0 08/03/2018 [facility] Plasma globulin measurement (mass/volume) 3.7 2.3 - 3.5 08/03/2018 [facility] Serum or plasma albumin/globulin mass ratio 0.9 0.8 - 2.0 08/03/2018 [facility] Serum or plasma alkaline phosphatase measurement (enzymatic activity/volume) 111 40 - 150 08/03/2018 [facility] Pathology Reports No Data Provided for [...] DC Date Status Source Departed Emergency Room [id number] LEONOR AMARO MD 08/03/2018 08/03/2018 [facility] Discharged Inpatient (obs) [id number] JAILENE DC MD 11/20/2018 11/22/2018 [facility] Procedures Procedure Code Date Perfomer Comments Source Computed tomography of abdomen and pelvis with contrast [id number] 08/03/2018 SANTY [facility] Assessment and Plan No Data Provided for This Section Plan of Care Plan of Care Date Source Discharge Date 11/22/18 7:00pm Disposition HOME, SELF-CARE Instructions/Education Provided Diabetes and Diet Prescriptions See Medication Section Referrals SHAWANDA SZYMANSKI DO (Cardiology) Order Date: 1 Week Entered Date: 11/22/2018 6:26pm Address: [address] [place] [address] [address] [place] [address] Additional Instructions/Education Follow up with Dr. Szymanski in 1 week 11/22/2018 [facility] Discharge Date 08/03/18 10:20pm Disposition HOME, SELF-CARE Condition at Discharge Stable Instructions/Education Provided Abdominal Pain - Adult Diarrhea - Adult Urinary Tract Infection - Women Prescriptions See Medication Section Referrals JOSÉ MANUEL SZYMANSKI DO Address: [address] [place] [id number] LIA DC MD Order Date: Call for an appointment Address: [address] [place] [address] [address] [place] [address] Additional Instructions/Education Call for follow up appointment [...] or any new concerns. 08/03/2018 [facility] Social History Social History Date Source [...] Stop Date Former smoker 11/22/2018 [facility] Family History No Data Provided for This Section Advance Directives Order Name Results Value Date Source Advance Directives Advance Directives Directive Response Recorded Date/Time Does the patient have an advance directive? No 11/20/18 8:00pm If yes, is advance directive on file with [facility]? No 11/20/18 8:00pm If not on file with [facility] will patient provide a copy? No 11/20/18 8:00pm Do you have a Directive to Physician? No 11/20/18 12:31pm Do you have a Medical Power of Tube Blower? No 11/20/18 12:31pm Do you have an [...] responsibilities? Yes 11/20/18 12:31pm 11/22/2018 [facility] Advance Directives Advance Directives Directive Response Recorded Date/Time Does the patient have an advance directive? No 03/29/16 12:21am If yes, is advance directive on file with [facility] [address]? No 03/29/16 12:21am If not on file with [facility] will patient provide a copy? No 03/29/16 12:21am Do you have a Directive to Physician? No 08/03/18 3:43pm Do you have a Medical Power of Tube Blower? No 08/03/18 3:43pm Do you have an [...] responsibilities? Yes 08/03/18 3:43pm 08/03/2018 [facility] Functional Status No Data Provided for This Section
[2019-05-13] MEDS ORDERED: ENOXAPARIN SODIUM INJ 100 MG/ML SYR SC STA (17:38)
[2019-05-13] MEDS ORDERED: ONDANSETRON HCL INJ 2MG/ML 2ML 2 MG/ML VIAL IV PRN (17:45)
[2019-05-13 17:54] LABS: BASOPHILS % 0.4 % (0.0-1.0); EOSINOPHILS # (AUTO) 0.1 (0.0-0.4); EOSINOPHILS % 0.6 % (0.0-6.0); HEMATOCRIT 36.4 % (34.2-44.1); HEMOGLOBIN 10.6 g/dL (12.0-16.0); LYMPHOCYTES # (AUTO) 0.7 (1.0-3.2); LYMPHOCYTES % 6.2 % (18.0-39.1); MEAN CORPUSCULAR HGB CONC 29.1 g/dL (31-35); MEAN CORPUSCULAR VOLUME 75.5 fL (81-99); MONOCYTES # (AUTO) 0.7 (0.2-0.8); NEUTROPHILS # (AUTO) 9.4 (2.1-6.9); NEUTROPHILS % 86.2 % (38.7-80.0); PLATELET COUNT 361 x10e3/uL (140-360); RED BLOOD COUNT 4.82 x10e6/uL (3.6-5.1); RED CELL DISTRIBUTION WIDTH 28.3 % (11.7-14.4)
[2019-05-13] MEDS ORDERED: ENOXAPARIN SODIUM INJ 100 MG/ML SYR SC SCH (18:00)
[2019-05-13 18:02] LABS: INR 0.89; PROTHROMBIN TIME 12.5 seconds (11.9-14.5)
[2019-05-13 18:03] LABS: PARTIAL THROMBOPLASTIN TIME 24.9 seconds (23.8-35.5)
[2019-05-13 18:04] LABS: ALBUMIN 3.5 g/dL (3.5-5.0); ANION GAP 16.1 mmol/L (8-16); CALCIUM 9.9 mg/dL (8.4-10.2); CREATININE, SERUM 1.24 mg/dL (0.57-1.11); POTASSIUM 4.1 mmol/L (3.5-5.1)
[2019-05-13] MEDS ORDERED: RIVAROXABAN 10 MG TABLET PO ONE (18:15)
--- OUTSIDE RECORDS SUMMARY | 2019-05-13 18:56 | XMS REPORT | Continuity of Care Document ---
Author Author [employer] Address Unknown Phone Unavailable Care Team Providers Care Reading Specialist Name Role Phone [facility] [employer] Unavailable Unavailable Problems Problem Status Onset Date Classification Date Reported Comments Source Hypochloremia Active 03/28/2016 Problem 11/23/2018 [facility] Hyponatremia Active 03/28/2016 Problem 11/23/2018 [facility] Urinary tract infection Active 03/28/2016 Problem 11/23/2018 [facility] Concussion Active Problem 11/23/2018 [facility] Contusion Active Problem 11/23/2018 [facility] 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 [facility] Cardiac arrhythmia Active Problem 11/23/2018 [facility] Shortness of breath Active Problem 11/23/2018 [facility] Medications Medication Details Route Status Patient Instructions Ordering Provider Order Date Source Metformin Hcl (Glucophage) 1,000 Mg Tablet, 1 Tab Oral Twice A Day Active 11/21/2018 [facility] Ciprofloxacin Hcl (Cipro) 250 Mg Tablet, 250 Mg Oral Twice A Day Active 11/20/2018 [facility] Cyclosporine (Restasis) 1 Each Droperette, Each Eye Twice A Day Active 11/20/2018 [facility] Liraglutide (Victoza 2-Ethan) 0.6 Mg/0.1 Ml Pen.injctr, 1.8 Mg Sub-Q Daily Active 11/20/2018 [facility] Ramipril 10 Mg Capsule, 1 Tab Oral Twice A Day Active 11/20/2018 [facility] Amlodipine Besylate 5 Mg Tablet, 1 Tab Oral Daily Active 03/29/2016 [facility] Warfarin Sodium 5 Mg Tablet, 1 Tab Oral 5 Days/Week Active 12/21/2014 [facility] Tramadol Hcl 50 Mg Tablet, 1 Tab Oral Daily Active 02/04/2014 [facility] Atorvastatin Calcium (Lipitor) 40 Mg Tablet Daily Active [facility] Cholecalciferol (Vitamin D3) (Vitamin D3) 5,000 Unit Capsule Daily Active [facility] Ciprofloxacin Hcl (Cipro) 250 Mg Tablet Twice A Day Active [facility] Cyclosporine (Restasis) 1 Each Droperette Twice A Day Active [facility] Duloxetine Hcl (Cymbalta) 60 Mg Capsule. Daily Active [facility] Esomeprazole Mag Trihydrate (Nexium) 40 Mg Capsule. Daily Active [facility] Ferrous Sulfate (Iron Supplement) 325 Mg Tablet Twice A Day Active [facility] Folic Acid 1 Mg Tablet Daily Active [facility] Gabapentin 600 Mg Tablet Three Times A Day Active [facility] Hydrocodone Bit/Acetaminophen (Hydrocet 5-500 Capsule) 1 Each Capsule As Needed Active [facility] Insulin Glargine,Hum.rec.anlog (Lantus) 100 Unit/1 Ml Vial Daily Active [facility] Levothyroxine Sodium (Synthroid) 50 Mcg Tablet Daily Active [facility] Liraglutide (Victoza 2-Ethan) 0.6 Mg/0.1 Ml Pen.injctr Daily Active [facility] Metformin Hcl (Glucophage) 1,000 Mg Tablet Twice A Day Active [facility] Oxybutynin Chloride (Ditropan Xl) 5 Mg Tab.er.24 Daily Active [facility] Ramipril 10 Mg Capsule Twice A Day Active [facility] Repaglinide (Prandin) 1 Mg Tablet 3AM/4NOON/2HS Active [facility] Rivaroxaban (Xarelto) 10 Mg Tablet Daily Active [facility] Vitamin B-6 Daily Active [facility] Polyethylene Glycol 3350 (Miralax) 17 Gm Powd.pack Daily Active [facility] Xultophy Daily Active [facility] Allergies, Adverse Reactions, Alerts No Known Medication Allergies Immunizations No Data Provided for This Section Results Order Name Results Value Reference Range Date Interpretation Comments Source Capillary blood glucose measurement by glucometer (mass/volume) 120 70 - 120 11/22/2018 [facility] Serum or plasma creatine kinase measurement (enzymatic activity/volume) 48 29 - 168 11/21/2018 [facility] Serum or plasma creatine kinase MB measurement (mass/volume) 1.50 0 - 5.0 11/21/2018 [facility] Troponin I measurement by highly sensitive enzyme immunoassay 0.017 0 - 0.300 11/21/2018 [facility] Serum or plasma sodium measurement (moles/volume) 138 136 - 145 11/21/2018 [facility] Serum or plasma potassium measurement (moles/volume) 4.0 3.5 - 5.1 11/21/2018 [facility] Serum or plasma chloride measurement (moles/volume) 106 98 - 107 11/21/2018 [facility] Serum or plasma carbon dioxide, total measurement (moles/volume) 21 22 - 29 11/21/2018 [facility] Serum or plasma anion gap 15.0 8 - 16 11/21/2018 [facility] Serum or plasma urea nitrogen measurement (mass/volume) 29 7 - 26 11/21/2018 [facility] Serum or plasma creatinine measurement (mass/volume) 0.87 0.57 - 1.11 11/21/2018 [facility] Serum or plasma urea nitrogen/creatinine mass ratio 33 6 - 25 11/21/2018 [facility] Estimated glomerular filtration rate (GFR) determination > 60 60 11/21/2018 [facility] Glucose measurement 99 74 - 118 11/21/2018 [facility] Serum or plasma calcium measurement (mass/volume) 9.3 8.4 - 10.2 11/21/2018 [facility] Serum or plasma triglyceride measurement (mass/volume) 99 0 - 149 11/21/2018 [facility] Serum or plasma cholesterol measurement (mass/volume) 178 0 - 199 11/21/2018 [facility] Serum or plasma cholesterol in LDL measurement (mass/volume) 105 60 - 130 11/21/2018 [facility] Serum or plasma cholesterol in HDL measurement (mass/volume) 53 40 - 60 11/21/2018 [facility] Serum or plasma total cholesterol/cholesterol in HDL mass ratio 3.4 3.0 - 3.6 11/21/2018 [facility] Urine color determination YELLOW YELLOW 11/20/2018 [facility] Urine clarity SL CLOUDY CLEAR 11/20/2018 [facility] Specific gravity of Urine by Test strip 1.030 1.010 - 1.025 11/20/2018 [facility] Urine pH measurement by automated test strip 5 5 - 7 11/20/2018 [facility] Urine leukocyte esterase detection by dipstick NEGATIVE NEGATIVE 11/20/2018 [facility] Urine nitrite detection NEGATIVE NEGATIVE 11/20/2018 [facility] Urine protein measurement by test strip (mass/volume) NEGATIVE NEGATIVE 11/20/2018 [facility] Urine glucose detection NEGATIVE NEGATIVE 11/20/2018 [facility] Urine ketones detection by automated test strip NEGATIVE NEGATIVE 11/20/2018 [facility] Urine urobilinogen measurement by test strip (mass/volume) 0.2 0.2 - 1 11/20/2018 [facility] Urine total bilirubin measurement (mass/volume) NEGATIVE NEGATIVE 11/20/2018 [facility] Urine erythrocytes detection NEGATIVE NEGATIVE 11/20/2018 [facility] Automated urine sediment leukocyte count by microscopy (number/high power field) NONE 0 - 5 11/20/2018 [facility] Erythrocytes detection in urine sediment by light microscopy NONE 0 - 5 11/20/2018 [facility] Bacteria detection in urine sediment by light microscopy FEW NONE 11/20/2018 [facility] Epithelial cells detection in urine sediment by light microscopy MODERATE NONE 11/20/2018 [facility] Amorphous sediment detection in urine sediment by light microscopy FEW FEW 11/20/2018 [facility] Blood leukocytes automated count (number/volume) 6.80 4.8 - 10.8 11/20/2018 [facility] Blood erythrocytes automated count (number/volume) 5.31 3.6 - 5.1 11/20/2018 [facility] Blood hemoglobin measurement (moles/volume) 14.7 12.0 - 16.0 11/20/2018 [facility] Automated blood hematocrit (volume fraction) 44.8 34.2 - 44.1 11/20/2018 [facility] Automated erythrocyte mean corpuscular volume 84.4 81 - 99 11/20/2018 [facility] Automated erythrocyte mean corpuscular hemoglobin (mass per erythrocyte) 27.7 28 - 32 11/20/2018 [facility] Automated erythrocyte mean corpuscular hemoglobin concentration measurement (mass/volume) 32.8 31 - 35 11/20/2018 [facility] RDW BldCo-Rto 15.7 11.7 - 14.4 11/20/2018 [facility] Automated blood platelet count (count/volume) 285 140 - 360 11/20/2018 [facility] Automated blood segmented neutrophil count as percentage of total leukocytes 71.7 38.7 - 80.0 11/20/2018 [facility] Automated blood lymphocyte count as percentage ot total leukocytes 16.9 18.0 - 39.1 11/20/2018 [facility] Automated blood monocyte count as percentage of total leukocytes 8.8 4.4 - 11.3 11/20/2018 [facility] Automated blood eosinophil count as percentage of total leukocytes 1.5 0.0 - 6.0 11/20/2018 [facility] Automated blood basophil count as percentage of total leukocytes 0.7 0.0 - 1.0 11/20/2018 [facility] IM GRANULOCYTES % 0.4 0.0 - 1.0 11/20/2018 [facility] Automated blood neutrophil count 4.9 2.1 - 6.9 11/20/2018 [facility] Blood lymphocytes count (number/volume) 1.2 1.0 - 3.2 11/20/2018 [facility] Blood monocytes automated count (number/volume) 0.6 0.2 - 0.8 11/20/2018 [facility] Automated blood eosinophil count 0.1 0.0 - 0.4 11/20/2018 [facility] Automated blood basophil count (count/volume) 0.1 0.0 - 0.1 11/20/2018 [facility] Absolute Immature Granulocyte (auto 0.03 0 - 0.1 11/20/2018 [facility] Prothrombin time (PT) in platelet poor plasma by coagulation assay 16.2 11.9 - 14.5 11/20/2018 [facility] INR in Platelet poor plasma by Coagulation assay 1.24 11/20/2018 [facility] Activated partial thromboplastin time (aPTT) in platelet poor plasma bycoagulation assay 36.7 23.8 - 35.5 11/20/2018 [facility] Serum or plasma magnesium measurement (mass/volume) 2.1 1.3 - 2.1 11/20/2018 [facility] Serum or plasma total bilirubin measurement (mass/volume) 0.3 0.2 - 1.2 11/20/2018 [facility] Aspartate Amino Transf (AST/SGOT) 33 5 - 34 11/20/2018 [facility] Serum or plasma alanine aminotransferase measurement (enzymatic activity/volume) 25 0 - 55 11/20/2018 [facility] Serum or plasma protein measurement (mass/volume) 7.2 6.5 - 8.1 11/20/2018 [facility] Serum or plasma albumin measurement (mass/volume) 3.6 3.5 - 5.0 11/20/2018 [facility] Plasma globulin measurement (mass/volume) 3.6 2.3 - 3.5 11/20/2018 [facility] Serum or plasma albumin/globulin mass ratio 1.0 0.8 - 2.0 11/20/2018 [facility] Serum or plasma alkaline phosphatase measurement (enzymatic activity/volume) 95 40 - 150 11/20/2018 [facility] Free thyroxine index 2.8752 1.4 - 3.8 11/20/2018 [facility] Serum or plasma thyroxine (T4) measurement (mass/volume) 8.79 4.5 - 10.9 11/20/2018 [facility] Serum or plasma triiodothyronine resin uptake (T3RU) 32.71 22.5 - 37.0 11/20/2018 [facility] Serum or plasma thyrotropin measurement by detection limit <=0.005 miu/l (units/volume) 1.828 0.350 - 4.940 11/20/2018 [facility] Capillary blood glucose measurement by glucometer (mass/volume) 98 70 - 120 08/03/2018 [facility] Urine color determination YELLOW YELLOW 08/03/2018 [facility] Urine clarity CLOUDY CLEAR 08/03/2018 [facility] Specific gravity of Urine by Test strip 1.030 1.010 - 1.025 08/03/2018 [facility] Urine pH measurement by automated test strip 6 5 - 7 08/03/2018 [facility] Urine leukocyte esterase detection by dipstick 1+ NEGATIVE 08/03/2018 [facility] Urine nitrite detection NEGATIVE NEGATIVE 08/03/2018 [facility] Urine protein measurement by test strip (mass/volume) 1+ NEGATIVE 08/03/2018 [facility] Urine glucose detection NEGATIVE NEGATIVE 08/03/2018 [facility] Urine ketones detection by automated test strip NEGATIVE NEGATIVE 08/03/2018 [facility] Urine urobilinogen measurement by test strip (mass/volume) 0.2 0.2 - 1 08/03/2018 [facility] Urine total bilirubin measurement (mass/volume) NEGATIVE NEGATIVE 08/03/2018 [facility] Urine erythrocytes detection 3+ NEGATIVE 08/03/2018 [facility] Automated urine sediment leukocyte count by microscopy (number/high power field) 11-20 0 - 5 08/03/2018 [facility] Erythrocytes detection in urine sediment by light microscopy 11-20 0 - 5 08/03/2018 [facility] Bacteria detection in urine sediment by light microscopy MODERATE NONE 08/03/2018 [facility] Epithelial cells detection in urine sediment by light microscopy FEW NONE 08/03/2018 [facility] Blood leukocytes automated count (number/volume) 13.63 4.8 - 10.8 08/03/2018 [facility] Blood erythrocytes automated count (number/volume) 4.85 3.6 - 5.1 08/03/2018 [facility] Blood hemoglobin measurement (moles/volume) 11.8 12.0 - 16.0 08/03/2018 [facility] Automated blood hematocrit (volume fraction) 37.5 34.2 - 44.1 08/03/2018 [facility] Automated erythrocyte mean corpuscular volume 77.3 81 - 99 08/03/2018 [facility] Automated erythrocyte mean corpuscular hemoglobin (mass per erythrocyte) 24.3 28 - 32 08/03/2018 [facility] Automated erythrocyte mean corpuscular hemoglobin concentration measurement (mass/volume) 31.5 31 - 35 08/03/2018 [facility] RDW BldCo-Rto 22.4 11.7 - 14.4 08/03/2018 [facility] Automated blood platelet count (count/volume) 330 140 - 360 08/03/2018 [facility] Automated blood segmented neutrophil count as percentage of total leukocytes 84.6 38.7 - 80.0 08/03/2018 [facility] Automated blood lymphocyte count as percentage ot total leukocytes 8.4 18.0 - 39.1 08/03/2018 [facility] Automated blood monocyte count as percentage of total leukocytes 5.6 4.4 - 11.3 08/03/2018 [facility] Automated blood eosinophil count as percentage of total leukocytes 0.7 0.0 - 6.0 08/03/2018 [facility] Automated blood basophil count as percentage of total leukocytes 0.3 0.0 - 1.0 08/03/2018 [facility] IM GRANULOCYTES % 0.4 0.0 - 1.0 08/03/2018 [facility] Automated blood neutrophil count 11.5 2.1 - 6.9 08/03/2018 [facility] Blood lymphocytes count (number/volume) 1.1 1.0 - 3.2 08/03/2018 [facility] Blood monocytes automated count (number/volume) 0.8 0.2 - 0.8 08/03/2018 [facility] Automated blood eosinophil count 0.1 0.0 - 0.4 08/03/2018 [facility] Automated blood basophil count (count/volume) 0.0 0.0 - 0.1 08/03/2018 [facility] Absolute Immature Granulocyte (auto 0.06 0 - 0.1 08/03/2018 [facility] Serum or plasma sodium measurement (moles/volume) 138 136 - 145 08/03/2018 [facility] Serum or plasma potassium measurement (moles/volume) 4.1 3.5 - 5.1 08/03/2018 [facility] Serum or plasma chloride measurement (moles/volume) 103 98 - 107 08/03/2018 [facility] Serum or plasma carbon dioxide, total measurement (moles/volume) 25 22 - 29 08/03/2018 [facility] Serum or plasma anion gap 14.1 8 - 16 08/03/2018 [facility] Serum or plasma urea nitrogen measurement (mass/volume) 28 7 - 26 08/03/2018 [facility] Serum or plasma creatinine measurement (mass/volume) 0.84 0.57 - 1.11 08/03/2018 [facility] Serum or plasma urea nitrogen/creatinine mass ratio 33 6 - 25 08/03/2018 [facility] Estimated glomerular filtration rate (GFR) determination > 60 60 08/03/2018 [facility] Glucose measurement 100 74 - 118 08/03/2018 [facility] Serum or plasma calcium measurement (mass/volume) 9.4 8.4 - 10.2 08/03/2018 [facility] Serum or plasma total bilirubin measurement (mass/volume) 0.5 0.2 - 1.2 08/03/2018 [facility] Aspartate Amino Transf (AST/SGOT) 19 5 - 34 08/03/2018 [facility] Serum or plasma alanine aminotransferase measurement (enzymatic activity/volume) 23 0 - 55 08/03/2018 [facility] Serum or plasma protein measurement (mass/volume) 6.9 6.5 - 8.1 08/03/2018 [facility] Serum or plasma albumin measurement (mass/volume) 3.2 3.5 - 5.0 08/03/2018 [facility] Plasma globulin measurement (mass/volume) 3.7 2.3 - 3.5 08/03/2018 [facility] Serum or plasma albumin/globulin mass ratio 0.9 0.8 - 2.0 08/03/2018 [facility] Serum or plasma alkaline phosphatase measurement (enzymatic activity/volume) 111 40 - 150 08/03/2018 [facility] Pathology Reports No Data Provided for [...] DC Date Status Source Departed Emergency Room [id number] LEONOR AMARO MD 08/03/2018 08/03/2018 [facility] Discharged Inpatient (obs) [id number] JAILENE DC MD 11/20/2018 11/22/2018 [facility] Procedures Procedure Code Date Perfomer Comments Source Computed tomography of abdomen and pelvis with contrast [id number] 08/03/2018 SANTY [facility] Assessment and Plan No Data Provided for This Section Plan of Care Plan of Care Date Source Discharge Date 11/22/18 7:00pm Disposition HOME, SELF-CARE Instructions/Education Provided Diabetes and Diet Prescriptions See Medication Section Referrals SHAWANDA SZYMANSKI DO (Cardiology) Order Date: 1 Week Entered Date: 11/22/2018 6:26pm Address: [address] [place] [address] [address] [place] [address] Additional Instructions/Education Follow up with Dr. Szymanski in 1 week 11/22/2018 [facility] Discharge Date 08/03/18 10:20pm Disposition HOME, SELF-CARE Condition at Discharge Stable Instructions/Education Provided Abdominal Pain - Adult Diarrhea - Adult Urinary Tract Infection - Women Prescriptions See Medication Section Referrals JOSÉ MANUEL SZYMANSKI DO Address: [address] [place] [id number] LIA DC MD Order Date: Call for an appointment Address: [address] [place] [address] [address] [place] [address] Additional Instructions/Education Call for follow up appointment [...] oral secretions or any new concerns. 08/03/2018 [facility] Social History Social History Date Source [...] Start Date Stop Date Former smoker 11/22/2018 [facility] Family History No Data Provided for This Section Advance Directives Order Name Results Value Date Source Advance Directives Advance Directives Directive Response Recorded Date/Time Does the patient have an advance directive? No 11/20/18 8:00pm If yes, is advance directive on file with [facility]? No 11/20/18 8:00pm If not on file with [facility] will patient provide a copy? No 11/20/18 8:00pm Do you have a Directive to Physician? No 11/20/18 12:31pm Do you have a Medical Power of Tooling Inspector? No 11/20/18 12:31pm Do you have an [...] rights and responsibilities? Yes 11/20/18 12:31pm 11/22/2018 [facility] Advance Directives Advance Directives Directive Response Recorded Date/Time Does the patient have an advance directive? No 03/29/16 12:21am If yes, is advance directive on file with [facility]? No 03/29/16 12:21am If not on file with [facility] will patient provide a copy? No 03/29/16 12:21am Do you have a Directive to Physician? No 08/03/18 3:43pm Do you have a Medical Power of Tooling Inspector? No 08/03/18 3:43pm Do you have an [...] rights and responsibilities? Yes 08/03/18 3:43pm 08/03/2018 [facility] Functional Status No Data Provided for This Section
[2019-05-13 18:58] VITALS: BP 116/78
[2019-05-19] MEDS ORDERED: IRON PO (14:57)
[2019-05-19] MEDS ORDERED: VITAMIN B-121000 MC1 PO (14:57)
== END 2019-05-13 19:01 | disposition home or self-care (01) ==
LOC: ER 15:35 → ERHOLD 18:52 → UNDOADMIN 18:52 → ER 19:01 → UNDODISIN 19:01
DX: R20.0 Anesthesia of skin (principal); I82.413 Acute embolism and thrombosis of femoral vein, bilateral; I10 Essential (primary) hypertension; E78.5 Hyperlipidemia, unspecified; E03.9 Hypothyroidism, unspecified; D64.9 Anemia, unspecified
CPT/HCPCS: 36415; 80053; 83880; 85025; 85610; 85730; 93970; 99284

== ENCOUNTER → 2019-06-01 | Day surgery (SDC) | payer MEDICARE ==
[2019-05-28 13:28] LABS: INR 1.15; PROTHROMBIN TIME 15.3 seconds (11.9-14.5)
[2019-05-28 13:29] LABS: ALBUMIN 3.2 g/dL (3.5-5.0); ANION GAP 14.3 mmol/L (8-16); CALCIUM 9.9 mg/dL (8.4-10.2); CREATININE, SERUM 1.1 mg/dL (0.57-1.11); POTASSIUM 4.3 mmol/L (3.5-5.1)
[2019-05-28 13:31] LABS: BASOPHILS % 0.6 % (0.0-1.0); EOSINOPHILS # (AUTO) 0.2 (0.0-0.4); EOSINOPHILS % 3.6 % (0.0-6.0); HEMATOCRIT 36.2 % (34.2-44.1); HEMOGLOBIN 10.8 g/dL (12.0-16.0); LYMPHOCYTES # (AUTO) 0.9 (1.0-3.2); LYMPHOCYTES % 14.1 % (18.0-39.1); MEAN CORPUSCULAR HEMOGLOBIN 23.9 pg (28-32); MEAN CORPUSCULAR HGB CONC 29.8 g/dL (31-35); MEAN CORPUSCULAR VOLUME 80.1 fL (81-99); MONOCYTES # (AUTO) 0.7 (0.2-0.8); MONOCYTES % 11.6 % (4.4-11.3); NEUTROPHILS # (AUTO) 4.4 (2.1-6.9); NEUTROPHILS % 69.6 % (38.7-80.0); PLATELET COUNT 259 x10e3/uL (140-360); RED BLOOD COUNT 4.52 x10e6/uL (3.6-5.1)
[~2019-06-01] VITALS: Ht 166.6 cm; Wt 113.4 kg
[2019-06-01] VITALS (20 sets, daily range): BP systolic 108–165; BP diastolic 38–91
[~2019-06-01] MED LIST changes: +ASPIRIN 325 MG TAB ONE; +FENTANYL CITRATE/PF 100MCG/2 ML INJ ONE; +HEPARIN SOD (PORCINE) 1000 UNIT/ML 30ML ONE; +HEPARIN SOD/SOD CHLORIDE 2,000 ML ONE; +IOPAMIDOL 300MG/ML 100 ML INFUS..BTL IV ONE; +IRON PO; +LIDOCAINE HCL 2% LOCAL 20 ML VIAL ONE; +MIDAZOLAM HCL 2 MG/2 ML VIAL ONE; +MORPHINE SULFATE INJ 4 MG/ML INJ 1ML ONE; +NITROGLYCERIN/D5W 200 MCG/ML 250 ML ONE; +SODIUM CHLORIDE 0.9% 1000ML 1,000 ML ONE; +TICAGRELOR 90 MG TABLET ONE; +VITAMIN B-121000 MC1 PO
--- OUTSIDE RECORDS SUMMARY | 2019-06-01 06:36 | XMS REPORT | Continuity of Care Document ---
Author Author ContentRealtime Address Unknown Phone Unavailable Care Team Providers Care Communications Project Lead Name Role Phone 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 [facility] Cardiac arrhythmia Active Problem 11/23/2018 [facility] Shortness of breath Active Problem 11/23/2018 [facility] Medications Medication Details Route Status Patient Instructions Ordering Provider Order Date Source Metformin Hcl (Glucophage) 1,000 Mg Tablet, 1 Tab Oral Twice A Day Active 11/21/2018 [facility] Ciprofloxacin Hcl (Cipro) 250 Mg Tablet, 250 Mg Oral Twice A Day Active 11/20/2018 [facility] Cyclosporine (Restasis) 1 Each Droperette, Each Eye Twice A Day Active 11/20/2018 [facility] Liraglutide (Victoza 2-Ethan) 0.6 Mg/0.1 Ml Pen.injctr, 1.8 Mg Sub-Q Daily Active 11/20/2018 [facility] Ramipril 10 Mg Capsule, 1 Tab Oral Twice A Day Active 11/20/2018 [facility] Amlodipine Besylate 5 Mg Tablet, 1 Tab Oral Daily Active 03/29/2016 [facility] Warfarin Sodium 5 Mg Tablet, 1 Tab Oral 5 Days/Week Active 12/21/2014 [facility] Tramadol Hcl 50 Mg Tablet, 1 Tab Oral Daily Active 02/04/2014 [facility] Atorvastatin Calcium (Lipitor) 40 Mg Tablet Daily Active [facility] Cholecalciferol (Vitamin D3) (Vitamin D3) 5,000 Unit Capsule Daily Active [facility] Ciprofloxacin Hcl (Cipro) 250 Mg Tablet Twice A Day Active [facility] Cyclosporine (Restasis) 1 Each Droperette Twice A Day Active [facility] Duloxetine Hcl (Cymbalta) 60 Mg Capsule. Daily Active [facility] Esomeprazole Mag Trihydrate (Nexium) 40 Mg Capsule. Daily Active [facility] Ferrous Sulfate (Iron Supplement) 325 Mg Tablet Twice A Day Active [facility] Folic Acid 1 Mg Tablet Daily Active [facility] Gabapentin 600 Mg Tablet Three Times A Day Active [facility] Hydrocodone Bit/Acetaminophen (Hydrocet 5-500 Capsule) 1 Each Capsule As Needed Active [facility] Insulin Glargine,Hum.rec.anlog (Lantus) 100 Unit/1 Ml Vial Daily Active [facility] Levothyroxine Sodium (Synthroid) 50 Mcg Tablet Daily Active [facility] Liraglutide (Victoza 2-Ethan) 0.6 Mg/0.1 Ml Pen.injctr Daily Active [facility] Metformin Hcl (Glucophage) 1,000 Mg Tablet Twice A Day Active [facility] Oxybutynin Chloride (Ditropan Xl) 5 Mg Tab.er.24 Daily Active [facility] Ramipril 10 Mg Capsule Twice A Day Active [facility] Repaglinide (Prandin) 1 Mg Tablet 3AM/4NOON/2HS Active [facility] Rivaroxaban (Xarelto) 10 Mg Tablet Daily Active [facility] Vitamin B-6 Daily Active [facility] Polyethylene Glycol 3350 (Miralax) 17 Gm Powd.pack Daily Active [facility] Xultophy Daily Active [facility] Allergies, Adverse Reactions, Alerts No Known Medication Allergies Immunizations No Data Provided for This Section Results Order Name Results Value Reference Range Date Interpretation Comments Source Capillary blood glucose measurement by glucometer (mass/volume) 120 70 - 120 11/22/2018 [facility] Serum or plasma creatine kinase measurement (enzymatic activity/volume) 48 29 - 168 11/21/2018 [facility] Serum or plasma creatine kinase MB measurement (mass/volume) 1.50 0 - 5.0 11/21/2018 [facility] Troponin I measurement by highly sensitive enzyme immunoassay 0.017 0 - 0.300 11/21/2018 [facility] Serum or plasma sodium measurement (moles/volume) 138 136 - 145 11/21/2018 [facility] Serum or plasma potassium measurement (moles/volume) 4.0 3.5 - 5.1 11/21/2018 [facility] Serum or plasma chloride measurement (moles/volume) 106 98 - 107 11/21/2018 [facility] Serum or plasma carbon dioxide, total measurement (moles/volume) 21 22 - 29 11/21/2018 [facility] Serum or plasma anion gap 15.0 8 - 16 11/21/2018 [facility] Serum or plasma urea nitrogen measurement (mass/volume) 29 7 - 26 11/21/2018 [facility] Serum or plasma creatinine measurement (mass/volume) 0.87 0.57 - 1.11 11/21/2018 [facility] Serum or plasma urea nitrogen/creatinine mass ratio 33 6 - 25 11/21/2018 [facility] Estimated glomerular filtration rate (GFR) determination > 60 60 11/21/2018 [facility] Glucose measurement 99 74 - 118 11/21/2018 [facility] Serum or plasma calcium measurement (mass/volume) 9.3 8.4 - 10.2 11/21/2018 [facility] Serum or plasma triglyceride measurement (mass/volume) 99 0 - 149 11/21/2018 [facility] Serum or plasma cholesterol measurement (mass/volume) 178 0 - 199 11/21/2018 [facility] Serum or plasma cholesterol in LDL measurement (mass/volume) 105 60 - 130 11/21/2018 [facility] Serum or plasma cholesterol in HDL measurement (mass/volume) 53 40 - 60 11/21/2018 [facility] Serum or plasma total cholesterol/cholesterol in HDL mass ratio 3.4 3.0 - 3.6 11/21/2018 [facility] Urine color determination YELLOW YELLOW 11/20/2018 [facility] Urine clarity SL CLOUDY CLEAR 11/20/2018 [facility] Specific gravity of Urine by Test strip 1.030 1.010 - 1.025 11/20/2018 [facility] Urine pH measurement by automated test strip 5 5 - 7 11/20/2018 [facility] Urine leukocyte esterase detection by dipstick NEGATIVE NEGATIVE 11/20/2018 [facility] Urine nitrite detection NEGATIVE NEGATIVE 11/20/2018 [facility] Urine protein measurement by test strip (mass/volume) NEGATIVE NEGATIVE 11/20/2018 [facility] Urine glucose detection NEGATIVE NEGATIVE 11/20/2018 [facility] Urine ketones detection by automated test strip NEGATIVE NEGATIVE 11/20/2018 [facility] Urine urobilinogen measurement by test strip (mass/volume) 0.2 0.2 - 1 11/20/2018 [facility] Urine total bilirubin measurement (mass/volume) NEGATIVE NEGATIVE 11/20/2018 [facility] Urine erythrocytes detection NEGATIVE NEGATIVE 11/20/2018 [facility] Automated urine sediment leukocyte count by microscopy (number/high power field) NONE 0 - 5 11/20/2018 [facility] Erythrocytes detection in urine sediment by light microscopy NONE 0 - 5 11/20/2018 [facility] Bacteria detection in urine sediment by light microscopy FEW NONE 11/20/2018 [facility] Epithelial cells detection in urine sediment by light microscopy MODERATE NONE 11/20/2018 [facility] Amorphous sediment detection in urine sediment by light microscopy FEW FEW 11/20/2018 [facility] Blood leukocytes automated count (number/volume) 6.80 4.8 - 10.8 11/20/2018 [facility] Blood erythrocytes automated count (number/volume) 5.31 3.6 - 5.1 11/20/2018 [facility] Blood hemoglobin measurement (moles/volume) 14.7 12.0 - 16.0 11/20/2018 [facility] Automated blood hematocrit (volume fraction) 44.8 34.2 - 44.1 11/20/2018 [facility] Automated erythrocyte mean corpuscular volume 84.4 81 - 99 11/20/2018 [facility] Automated erythrocyte mean corpuscular hemoglobin (mass per erythrocyte) 27.7 28 - 32 11/20/2018 [facility] Automated erythrocyte mean corpuscular hemoglobin concentration measurement (mass/volume) 32.8 31 - 35 11/20/2018 [facility] RDW BldCo-Rto 15.7 11.7 - 14.4 11/20/2018 [facility] Automated blood platelet count (count/volume) 285 140 - 360 11/20/2018 [facility] Automated blood segmented neutrophil count as percentage of total leukocytes 71.7 38.7 - 80.0 11/20/2018 [facility] Automated blood lymphocyte count as percentage ot total leukocytes 16.9 18.0 - 39.1 11/20/2018 [facility] Automated blood monocyte count as percentage of total leukocytes 8.8 4.4 - 11.3 11/20/2018 [facility] Automated blood eosinophil count as percentage of total leukocytes 1.5 0.0 - 6.0 11/20/2018 [facility] Automated blood basophil count as percentage of total leukocytes 0.7 0.0 - 1.0 11/20/2018 [facility] IM GRANULOCYTES % 0.4 0.0 - 1.0 11/20/2018 [facility] Automated blood neutrophil count 4.9 2.1 - 6.9 11/20/2018 [facility] Blood lymphocytes count (number/volume) 1.2 1.0 - 3.2 11/20/2018 [facility] Blood monocytes automated count (number/volume) 0.6 0.2 - 0.8 11/20/2018 [facility] Automated blood eosinophil count 0.1 0.0 - 0.4 11/20/2018 [facility] Automated blood basophil count (count/volume) 0.1 0.0 - 0.1 11/20/2018 [facility] Absolute Immature Granulocyte (auto 0.03 0 - 0.1 11/20/2018 [facility] Prothrombin time (PT) in platelet poor plasma by coagulation assay 16.2 11.9 - 14.5 11/20/2018 [facility] INR in Platelet poor plasma by Coagulation assay 1.24 11/20/2018 [facility] Activated partial thromboplastin time (aPTT) in platelet poor plasma bycoagulation assay 36.7 23.8 - 35.5 11/20/2018 [facility] Serum or plasma magnesium measurement (mass/volume) 2.1 1.3 - 2.1 11/20/2018 [facility] Serum or plasma total bilirubin measurement (mass/volume) 0.3 0.2 - 1.2 11/20/2018 [facility] Aspartate Amino Transf (AST/SGOT) 33 5 - 34 11/20/2018 [facility] Serum or plasma alanine aminotransferase measurement (enzymatic activity/volume) 25 0 - 55 11/20/2018 [facility] Serum or plasma protein measurement (mass/volume) 7.2 6.5 - 8.1 11/20/2018 [facility] Serum or plasma albumin measurement (mass/volume) 3.6 3.5 - 5.0 11/20/2018 [facility] Plasma globulin measurement (mass/volume) 3.6 2.3 - 3.5 11/20/2018 [facility] Serum or plasma albumin/globulin mass ratio 1.0 0.8 - 2.0 11/20/2018 [facility] Serum or plasma alkaline phosphatase measurement (enzymatic activity/volume) 95 40 - 150 11/20/2018 [facility] Free thyroxine index 2.8752 1.4 - 3.8 11/20/2018 [facility] Serum or plasma thyroxine (T4) measurement (mass/volume) 8.79 4.5 - 10.9 11/20/2018 [facility] Serum or plasma triiodothyronine resin uptake (T3RU) 32.71 22.5 - 37.0 11/20/2018 [facility] Serum or plasma thyrotropin measurement by detection limit <=0.005 miu/l (units/volume) 1.828 0.350 - 4.940 11/20/2018 [facility] Capillary blood glucose measurement by glucometer (mass/volume) 98 70 - 120 08/03/2018 [facility] Urine color determination YELLOW YELLOW 08/03/2018 [facility] Urine clarity CLOUDY CLEAR 08/03/2018 [facility] Specific gravity of Urine by Test strip 1.030 1.010 - 1.025 08/03/2018 [facility] Urine pH measurement by automated test strip 6 5 - 7 08/03/2018 [facility] Urine leukocyte esterase detection by dipstick 1+ NEGATIVE 08/03/2018 [facility] Urine nitrite detection NEGATIVE NEGATIVE 08/03/2018 [facility] Urine protein measurement by test strip (mass/volume) 1+ NEGATIVE 08/03/2018 [facility] Urine glucose detection NEGATIVE NEGATIVE 08/03/2018 [facility] Urine ketones detection by automated test strip NEGATIVE NEGATIVE 08/03/2018 [facility] Urine urobilinogen measurement by test strip (mass/volume) 0.2 0.2 - 1 08/03/2018 [facility] Urine total bilirubin measurement (mass/volume) NEGATIVE NEGATIVE 08/03/2018 [facility] Urine erythrocytes detection 3+ NEGATIVE 08/03/2018 [facility] Automated urine sediment leukocyte count by microscopy (number/high power field) 11-20 0 - 5 08/03/2018 [facility] Erythrocytes detection in urine sediment by light microscopy 11-20 0 - 5 08/03/2018 [facility] Bacteria detection in urine sediment by light microscopy MODERATE NONE 08/03/2018 [facility] Epithelial cells detection in urine sediment by light microscopy FEW NONE 08/03/2018 [facility] Blood leukocytes automated count (number/volume) 13.63 4.8 - 10.8 08/03/2018 [facility] Blood erythrocytes automated count (number/volume) 4.85 3.6 - 5.1 08/03/2018 [facility] Blood hemoglobin measurement (moles/volume) 11.8 12.0 - 16.0 08/03/2018 [facility] Automated blood hematocrit (volume fraction) 37.5 34.2 - 44.1 08/03/2018 [facility] Automated erythrocyte mean corpuscular volume 77.3 81 - 99 08/03/2018 [facility] Automated erythrocyte mean corpuscular hemoglobin (mass per erythrocyte) 24.3 28 - 32 08/03/2018 [facility] Automated erythrocyte mean corpuscular hemoglobin concentration measurement (mass/volume) 31.5 31 - 35 08/03/2018 [facility] RDW BldCo-Rto 22.4 11.7 - 14.4 08/03/2018 [facility] Automated blood platelet count (count/volume) 330 140 - 360 08/03/2018 [facility] Automated blood segmented neutrophil count as percentage of total leukocytes 84.6 38.7 - 80.0 08/03/2018 [facility] Automated blood lymphocyte count as percentage ot total leukocytes 8.4 18.0 - 39.1 08/03/2018 [facility] Automated blood monocyte count as percentage of total leukocytes 5.6 4.4 - 11.3 08/03/2018 [facility] Automated blood eosinophil count as percentage of total leukocytes 0.7 0.0 - 6.0 08/03/2018 [facility] Automated blood basophil count as percentage of total leukocytes 0.3 0.0 - 1.0 08/03/2018 [facility] IM GRANULOCYTES % 0.4 0.0 - 1.0 08/03/2018 [facility] Automated blood neutrophil count 11.5 2.1 - 6.9 08/03/2018 [facility] Blood lymphocytes count (number/volume) 1.1 1.0 - 3.2 08/03/2018 [facility] Blood monocytes automated count (number/volume) 0.8 0.2 - 0.8 08/03/2018 [facility] Automated blood eosinophil count 0.1 0.0 - 0.4 08/03/2018 [facility] Automated blood basophil count (count/volume) 0.0 0.0 - 0.1 08/03/2018 [facility] Absolute Immature Granulocyte (auto 0.06 0 - 0.1 08/03/2018 [facility] Serum or plasma sodium measurement (moles/volume) 138 136 - 145 08/03/2018 [facility] Serum or plasma potassium measurement (moles/volume) 4.1 3.5 - 5.1 08/03/2018 [facility] Serum or plasma chloride measurement (moles/volume) 103 98 - 107 08/03/2018 [facility] Serum or plasma carbon dioxide, total measurement (moles/volume) 25 22 - 29 08/03/2018 [facility] Serum or plasma anion gap 14.1 8 - 16 08/03/2018 [facility] Serum or plasma urea nitrogen measurement (mass/volume) 28 7 - 26 08/03/2018 [facility] Serum or plasma creatinine measurement (mass/volume) 0.84 0.57 - 1.11 08/03/2018 [facility] Serum or plasma urea nitrogen/creatinine mass ratio 33 6 - 25 08/03/2018 [facility] Estimated glomerular filtration rate (GFR) determination > 60 60 08/03/2018 [facility] Glucose measurement 100 74 - 118 08/03/2018 [facility] Serum or plasma calcium measurement (mass/volume) 9.4 8.4 - 10.2 08/03/2018 [facility] Serum or plasma total bilirubin measurement (mass/volume) 0.5 0.2 - 1.2 08/03/2018 [facility] Aspartate Amino Transf (AST/SGOT) 19 5 - 34 08/03/2018 [facility] Serum or plasma alanine aminotransferase measurement (enzymatic activity/volume) 23 0 - 55 08/03/2018 [facility] Serum or plasma protein measurement (mass/volume) 6.9 6.5 - 8.1 08/03/2018 [facility] Serum or plasma albumin measurement (mass/volume) 3.2 3.5 - 5.0 08/03/2018 [facility] Plasma globulin measurement (mass/volume) 3.7 2.3 - 3.5 08/03/2018 [facility] Serum or plasma albumin/globulin mass ratio 0.9 0.8 - 2.0 08/03/2018 [facility] Serum or plasma alkaline phosphatase measurement (enzymatic activity/volume) 111 40 - 150 08/03/2018 [facility] Pathology Reports No Data Provided for [...] DC Date Status Source Departed Emergency Room [id number] LEONOR AMARO MD 08/03/2018 08/03/2018 [facility] Discharged Inpatient (obs) [id number] JAILENE DC MD 11/20/2018 11/22/2018 [facility] Procedures Procedure Code Date Perfomer Comments Source Computed tomography of abdomen and pelvis with contrast [id number] 08/03/2018 [facility] Assessment and Plan No Data Provided for This Section Plan of Care Plan of Care Date Source Discharge Date 11/22/18 7:00pm Disposition HOME, SELF-CARE Instructions/Education Provided Diabetes and Diet Prescriptions See Medication Section Referrals SHAWANDA SZYMANKSI DO (Cardiology) Order Date: 1 Week Entered Date: 11/22/2018 6:26pm Address: [address] [place] [address] [address] [place] [address] Additional Instructions/Education Follow up with Dr. Szymanski in 1 week 11/22/2018 [facility] Discharge Date 08/03/18 10:20pm Disposition HOME, SELF-CARE Condition at Discharge Stable Instructions/Education Provided Abdominal Pain - Adult Diarrhea - Adult Urinary Tract Infection - Women Prescriptions See Medication Section Referrals JOSÉ MANUEL SZYMANSKI DO Address: [address] [place] [id number] LIA DC MD Order Date: Call for an appointment Address: [address] [place] [address] [address] [place] [address] Additional Instructions/Education Call for follow up appointment [...] oral secretions or any new concerns. 08/03/2018 [facility] Social History Social History Date Source [...] Start Date Stop Date Former smoker 11/22/2018 [facility] Family History No Data Provided for This Section Advance Directives Order Name Results Value Date Source Advance Directives Advance Directives Directive Response Recorded Date/Time Does the patient have an advance directive? No 11/20/18 8:00pm If yes, is advance directive on file with [facility]? No 11/20/18 8:00pm If not on file with [facility] will patient provide a copy? No 11/20/18 8:00pm Do you have a Directive to Physician? No 11/20/18 12:31pm Do you have a Medical Power of Service Correspondent? No 11/20/18 12:31pm Do you have an [...] rights and responsibilities? Yes 11/20/18 12:31pm 11/22/2018 [facility] Advance Directives Advance Directives Directive Response Recorded Date/Time Does the patient have an advance directive? No 03/29/16 12:21am If yes, is advance directive on file with [facility]? No 03/29/16 12:21am If not on file with [facility] will patient provide a copy? No 03/29/16 12:21am Do you have a Directive to Physician? No 08/03/18 3:43pm Do you have a Medical Power of Service Correspondent? No 08/03/18 3:43pm Do you have an [...] rights and responsibilities? Yes 08/03/18 3:43pm 08/03/2018 [facility] Functional Status No Data Provided for This Section
--- NOTE | 2019-06-01 14:14 | NUR ---
assume of care from Alvino Rivas RN. two venous sheaths in place. ACT in progress. VS trend WNL for patient. + neurovascular function present of both lower extremities. No gross issues at this time.- cgf
--- NOTE | 2019-06-01 14:45 | NUR ---
Don [employer] pulling sheaths. No gross issues. Pt turned to prone under own strength. tolerated w/o complaint or notable distress. dressings applied. trace edema observed to pedal bilateral.
--- NOTE | 2019-06-01 16:35 | NUR ---
Pt meets DC criteria. posterior legs assessed for s/s of complication and presence of hematoma. overall skin warm, dry, no discolor, and pulses present. bilateral pedal edema persists left > right. IV removed from left hand. Distal tip appears intact. VS WNL. Pt denies pain, sob, or need at this time. Family at front of hospital. Review of discharge paperwork and follow up instructions. verbalized understanding. Pt to wheelchair and transported to front of hospital. Transferred to private vehicle under own strength w/o incident with DC paperwork in hand. - cgf
--- NOTE | 2019-07-02 17:28 | Operative Report ---
DATE OF PROCEDURE: 06/01/2019 SURGEON: Damon Szymanski DO PROCEDURES PERFORMED: 1. Conscious sedation, 45 minutes. 2. Selective venography x2. 3. Third-order venography x1. 4. Intravascular ultrasound-guided venous access, stent placement and percutaneous venoplasty to the left iliac vein. PROCEDURE IN DETAIL: After informed consent was obtained, the patient was brought to the cardiac catheterization laboratory in a fasting and nonsedated state. She was placed prone. Bilateral popliteal regions were prepped and draped in usual sterile fashion. Using ultrasound guidance, but bilateral popliteal veins were accessed via modified Seldinger technique and a 7-Iranian sheath was placed. Next, venography was performed of bilateral lower extremities. Third-order venography was performed in iliac veins. The patient had mild thrombus present in the right iliac vein, which was nonobstructive. The patient had severe venous structure of the left iliac vein. I performed intravascular ultrasound. Next, I performed venoplasty. Next, I placed a 16 x 120 Brickeys venous stent. Next, in overlapping fashion, I placed a 16 x 60 Brickeys venous stent. Next, I performed postdilatation with a 16 mm and 14 mm balloons. The patient tolerated the procedure well with no immediate complication and transferred back to room in stable condition. IMPRESSION: Venous stricture with history of thrombosis, status post stent placement. RECOMMENDATIONS: Continue Xarelto and Plavix. Damon Szymanski DO BM/MODL /[id number]
== END | disposition home or self-care (01) ==
LOC: CATH LAB 06:33 → EDSTATUS 09:00
PROVIDERS: ATTEND Internal Medicine Cardiovascular Disease
DX: I82.422 Acute embolism and thrombosis of left iliac vein (principal); I83.893 Varicose veins of bilateral lower extremities with other complications; R00.0 Tachycardia, unspecified; E13.8 Other specified diabetes mellitus with unspecified complications; Z68.41 Body mass index [BMI] 40.0-44.9, adult; Z79.02 Long term (current) use of antithrombotics/antiplatelets; Z79.4 Long term (current) use of insulin
CPT/HCPCS: 36012; 36415; 37238; 75822; 75825; 76937; 80053; 85025; 85610; C1725 ×2; C1766 ×2; C1769 ×2; C1876 ×2; J1644; J2001; J2250; J2270; J3010; J7030; Q9967; 36010

== ENCOUNTER 2021-05-23 08:50 | Emergency (ER) | payer MEDICARE ==
[~2021-05-23] VITALS: Ht 166.6 cm; Wt 113.4 kg
[~2021-05-23 08:50] MED LIST changes: -ASPIRIN 325 MG TAB ONE; -FENTANYL CITRATE/PF 100MCG/2 ML INJ ONE; -HEPARIN SOD (PORCINE) 1000 UNIT/ML 30ML ONE; -HEPARIN SOD/SOD CHLORIDE 2,000 ML ONE; -IOPAMIDOL 300MG/ML 100 ML INFUS..BTL IV ONE; -LIDOCAINE HCL 2% LOCAL 20 ML VIAL ONE; -MIDAZOLAM HCL 2 MG/2 ML VIAL ONE; -MORPHINE SULFATE INJ 4 MG/ML INJ 1ML ONE; -NITROGLYCERIN/D5W 200 MCG/ML 250 ML ONE; -SODIUM CHLORIDE 0.9% 1000ML 1,000 ML ONE; -TICAGRELOR 90 MG TABLET ONE
== END 2021-05-23 12:10 ==
LOC: ER 09:04
DX: S00.83XA Contusion of other part of head, initial encounter (principal); W06.XXXA Fall from bed, initial encounter; Y93.84 Activity, sleeping; Y92.122 Bedroom in nursing home as the place of occurrence of the external cause; I10 Essential (primary) hypertension; E11.9 Type 2 diabetes mellitus without complications; E78.5 Hyperlipidemia, unspecified; E03.9 Hypothyroidism, unspecified; D68.51 Activated protein C resistance; Z86.718 Personal history of other venous thrombosis and embolism
CPT/HCPCS: 70450; 72125; 99284

== ENCOUNTER 2021-06-02 18:57 | Emergency (ER) | payer MEDICARE ==
[~2021-06-02] VITALS: Ht 167.6 cm; Wt 81.6 kg
== END 2021-06-02 22:00 ==
LOC: ER 19:07
DX: R41.82 Altered mental status, unspecified (principal); Z85.72 Personal history of non-Hodgkin lymphomas; E11.9 Type 2 diabetes mellitus without complications; I48.91 Unspecified atrial fibrillation; E78.5 Hyperlipidemia, unspecified; E03.9 Hypothyroidism, unspecified
CPT/HCPCS: 70450; 99283